=== PATIENT | female | born 1945 | race Caucasian/White ===

== ENCOUNTER → 2016-05-13 | Outpatient (CLI) | payer BC ==
[~2016-05-13] MED LIST: ACET325T96 PO; ASPI325T39 PO; CLC100X PO; CRD200 PO; SDMC1 PO; TAMS0.4C38 PO; [UNRECOGNIZED DRUG - CODE] NAE
== END | disposition home or self-care (01) ==
LOC: C.PAPS 17:49
PROVIDERS: ATTEND Obstetrics & Gynecology
DX: Z12.4 Encounter for screening for malignant neoplasm of cervix (principal)

== ENCOUNTER → 2016-11-22 | Outpatient (CLI) | payer BC ==
[2016-11-22 14:48] LABS: ALB/GLOB RATIO 1.1 (0.9-2); ALT/SGPT 14 U/L (12-78); AST/SGOT 14 U/L (15-37); BLOOD UREA NITROGEN 18 mg/dl (7-18); CALCIUM 9.9 mg/dl (8.5-10.1); CARBON DIOXIDE 32 mmol/L (21-32); CHLORIDE 102 mmol/L (98-107); CHOLESTEROL 208 mg/dl (0-200); GLUCOSE 90 mg/dl (70-99); SODIUM 138 mmol/L (136-145); TRIGLYCERIDES 60 mg/dl (0-150); VERY LOW DENSITY LIPOPROT CALC 12 mg/dl
[2016-11-22 14:52] LABS: ALKALINE PHOSPHATASE 82 U/L (45-117); CHOLESTEROL/HDL RATIO 2.2; HDL CHOLESTEROL 95 mg/dl; LDL CHOLESTEROL CALCULATED 101 mg/dl
== END | disposition home or self-care (01) ==
LOC: C.LAB1850 10:32
PROVIDERS: ATTEND Internal Medicine Cardiovascular Disease
DX: I10 Essential (primary) hypertension (principal); I25.10 Atherosclerotic heart disease of native coronary artery without angina pectoris

== ENCOUNTER → 2016-12-23 | Outpatient (CLI) | payer BC ==
--- NOTE | 2016-12-23 12:34 | MAMMOGRAPHY REPORT ---
BILATERAL DIGITAL SCREENING MAMMOGRAM WITH CAD: 12/23/2016 CLINICAL HISTORY: Routine screening. TECHNIQUE: Current study was also evaluated with a Computer Aided Detection (CAD) system. Bilateral CC and MLO views were obtained. COMPARISON: Comparison is made to exams dated: 12/22/2015 mammogram, 12/16/2014 mammogram, 12/11/2013 gigi mogram, 12/10/2012 mammogram, 12/08/2011 mammogram, and 12/06/2010 mammogram - [facility]. BREAST COMPOSITION: There are scattered areas of fibroglandular density in both breasts. FINDINGS: No suspicious masses, calcifications, or areas of architectural distortion are noted in ei ther breast. There has been no significant interval change compared to prior exams. IMPRESSION: ACR BI-RADS CATEGORY 1: NEGATIVE There is no mammographic evidence of malignancy. A 1 year screening mammogram is recommended. The pa tient will receive written notification of the results. Approximately 10% of breast cancers are not detected with mammography. A negative mammographic report should not delay biopsy if a clinically suggestive mass is present. Florecita Alfaro M.D. ah/:12/23/2016 12:10:43 Field Marketing Associate: Araseli Dey RT(R)(M), [facility] letter sent: Normal 1/2 BI-RADS Code: ACR BI-RADS Category 1: Negative
== END | disposition home or self-care (01) ==
LOC: C.MAMM 11:35
PROVIDERS: ATTEND Family Medicine
DX: Z12.31 Encounter for screening mammogram for malignant neoplasm of breast (principal)

== ENCOUNTER 2018-05-01 21:17 | Inpatient (IN) ==
[2018-05-01] MEDS ORDERED: ONDANSETRON INJ 2 MG/ML 2 ML VIAL IV STA (21:40)
[2018-05-01] MEDS ORDERED: SODIUM CHLORIDE 0.9% 1000ML 1,000 ML IV SCH (21:45)
--- NOTE | 2018-05-01 22:05 | XRay Report ---
XR chest 1V portable CLINICAL HISTORY: weakness COMPARISON STUDY: 09/10/2015 FINDINGS: The heart is mildly enlarged. There are postsurgical changes of a midline sternotomy and ao rtic valve replacement. There is no failure. There is no focal pulmonary consolidation. There are no large pleural effusions.[ IMPRESSION: No active disease in the chest. Electronically signed by: Isai Connolly M.D. 05/01/2018 10:03 PM
[2018-05-01 22:11] LABS: Hematocrit (blood only) 39.9 % (37-47); Hemoglobin 13.1 g/dL (12.0-16.0); Mean Corpuscular Hgb Conc 32.8 g/dL (32-36); Mean Corpuscular Volume 90.9 fL (80-100); Platelet Count 337 K/uL (130-400); RDW Standard Deviation 46.4 fL (36.4-46.3); Red Blood Count 4.39 M/uL (4.2-5.4); White Blood Count 10.22 K/uL (4.8-10.8)
[2018-05-01 22:30] LABS: BUN Creatinine Ratio 21.7 (10-20); Calcium 8.2 mg/dl (8.5-10.1); Creatinine Clr Calc Pharmacy 37.1 ml/min; Est GFR (African American) 47.5; Magnesium 2.1 mg/dl (1.8-2.4); Potassium 4.2 mmol/L (3.5-5.1)
[2018-05-01 22:33] LABS: Basophils # (auto) 0.02 K/uL (0-0.2); Basophils % (auto) 0.2 %; Eosinophils # (auto) 0.04 K/uL (0-0.5); Eosinophils % (auto) 0.4 %; Immature Granulocytes # (auto) 0.05 K/uL (0.00-0.02); Immature Granulocytes % (auto) 0.5 %; Lymphocytes # (auto) 1.01 K/uL (1.2-3.4); Lymphocytes % (auto) 9.9 %; Monocytes # (auto) 0.73 K/uL (0.11-0.59); Monocytes % (auto) 7.1 %; Neutrophils # (auto) 8.37 K/uL (1.4-6.5); Neutrophils % (auto) 81.9 %
--- NOTE | 2018-05-01 22:37 | Emergency Department Note ---
Entered by Abhishek Vitale acting as a scribe for History of Present Illness General Chief complaint: Syncope Stated complaint: SYNCOPE, Time Seen by Provider: 05/01/18 21:31 Source: patient History of Present Illness Provider complaint: Syncope Onset (ago): minute(s) (Just prior to arrival) Location: head Pain Consistency: + other (Episode) Maximum Pain Intensity: 5 Quality: + other (Cramping) Relieved By: + none Associated symptoms: + diaphoresis, + nausea/vomiting (No vomiting), + shortness of breath and + other (Dizzy); no chest pain, no fever/chills and no headaches The patient is a 73 year old female who presents to the Emergency Room after having a syncopal episode just prior to arrival. She states that around 193 she became diaphoretic, her vision went fuzzy and she became incontinent with both urine and stool. While getting help from her to go to the bathroom she lost consciousness and hit her head on the ground. She had nausea and fuzzy vision yesterday after taking two hydrocodone, which has never happened before, so she did not take any today. She has the hydrocodone for a cramping lower back pain that radiates to her posterior thighs. The back pain is from a back surgery she had done in 2014. She was here April 19 when she had a CT scan of her L spine done that showed central canal stenosis, no fracture, and hardware was intact. She also saw Dr. Manrique on April 24 where she had an Xray done and was prescribed Toradol for 5 days, which did not help her symptoms. Prior to this she was prescribed Prednisone and a muscle relaxer, which did not help either. With her negative effect to hydrocodone, she now just takes Ibuprofen. She denies any vomiting, black stool, headache, diarrhea, fever or chest pain but she does have some shortness of breath that she attributes to her anxiety. She does have a history of an aortic valve replacement. Home Medications Home Medications Medication Instructions Recorded Confirmed Type aspirin, buffered 325 mg PO DAILY 05/01/18 05/01/18 History clarithromycin 1,000 mg PO UD 05/01/18 05/01/18 History hydrocodone-acetaminophen 1 tab PO Q6H PRN 05/01/18 05/01/18 History ibuprofen 200 - 400 mg PO TID PRN 05/01/18 05/01/18 History polyethylene glycol 3350 [Miralax] 17 g PO HS 05/01/18 05/01/18 History triamterene-hydrochlorothiazid 1 tab PO DAILY 05/01/18 05/01/18 History Allergies Allergy/AdvReac Type Severity Reaction Status Date / Time amoxicillin Allergy Unknown HIVES Verified 05/01/18 22:32 Penicillins Allergy Unknown AMOXICILLIN Verified 05/01/18 22:32 -HIVES Sulfa (Sulfonamide Allergy Unknown HIVES Verified 05/01/18 22:32 Antibiotics) epinephrine AdvReac Unknown tachycardia Verified 05/01/18 22:32 Past Med/Surg History Medical History Lumbar stenosis with neurogenic claudication (Acute) Surgical History History of fusion of lumbar spine (Acute) Aortic valve replaced H/O thoracic aortic aneurysm repair Family History Other Family history non-contributory Social History marital status: Current Living Situation: Spouse current occupational status: retired Feels Safe at Home: Yes Smoking Status: Former smoker Hx Alcohol Use: No Review of Systems See HPI for pertinent positives & negatives. and A total of 10 systems reviewed and were otherwise negative Physical Exam Vital Signs Vital Signs - 24 hr 05/01/18 21:20 05/01/18 21:49 05/01/18 21:53 Temperature 36.4 C L Temperature Source Oral Sepsis Recent Fever Within 48 Hours No Sepsis New/Unexplained Change in Mental Status No Sepsis Action Taken by Nursing No Action Required Pulse Rate 108 H Pulse Rate [Apical] 106 H Respiratory Rate 20 18 Blood Pressure 89/60 L Blood Pressure [Right Arm] 119/73 Blood Pressure Mean 69 Blood Pressure Mean [Right Arm] 88 Pulse Oximetry 97 98 98 Oxygen Delivery Method Room Air Room Air 05/01/18 22:34 05/01/18 22:36 05/01/18 23:00 Temperature Temperature Source Sepsis Recent Fever Within 48 Hours Sepsis New/Unexplained Change in Mental Status Sepsis Action Taken by Nursing Pulse Rate 109 H 109 H Pulse Rate [Apical] 109 H Respiratory Rate 22 19 11 L Blood Pressure 110/73 107/74 Blood Pressure [Right Arm] 110/73 Blood Pressure Mean 85 85 Blood Pressure Mean [Right Arm] 85 Pulse Oximetry 95 100 Oxygen Delivery Method Room Air 05/01/18 23:24 05/01/18 23:30 05/01/18 23:47 Temperature Temperature Source Sepsis Recent Fever Within 48 Hours Sepsis New/Unexplained Change in Mental Status Sepsis Action Taken by Nursing Pulse Rate 110 H 98 H 89 Pulse Rate [Apical] Respiratory Rate 19 26 H 21 Blood Pressure 102/69 89/70 L 84/59 L Blood Pressure [Right Arm] Blood Pressure Mean 80 76 67 Blood Pressure Mean [Right Arm] Pulse Oximetry 99 98 99 Oxygen Delivery Method 05/02/18 00:01 05/02/18 00:16 05/02/18 00:34 Temperature Temperature Source Sepsis Recent Fever Within 48 Hours Sepsis New/Unexplained Change in Mental Status Sepsis Action Taken by Nursing Pulse Rate 95 H 98 H 99 H Pulse Rate [Apical] Respiratory Rate 21 20 22 Blood Pressure 104/82 111/82 116/64 Blood Pressure [Right Arm] Blood Pressure Mean 89 91 81 Blood Pressure Mean [Right Arm] Pulse Oximetry 97 98 97 Oxygen Delivery Method GENERAL: Patient is in no acute distress. HEENT: No acute trauma, small hematoma to the right lateral scalp with no laceration repair required, mucous membranes moist, no nasal congestion, no scleral icterus. NECK: No stridor, no adenopathy, no meningismus, trachea is midline. LUNGS: Clear to auscultation bilaterally, no wheeze, no rhonchi, breath sounds equal. HEART: Tachycardic rate with a regular rhythm. 2/6 systolic murmur ABDOMEN: Soft, nontender, bowel sounds positive, no hernias, no peritonitis. EXTREMITIES: No cyanosis, full range of motion of all the joints without pain or difficulty, no signs for acute trauma. Mild bilateral pedal edema. NEUROLOGIC: Oriented x 3, no acute motor or sensory deficits, no focal weakness. GCS of 15. SKIN: Pale, no rash, no jaundice, no diaphoresis. Course 2131: Past medical records reviewed. The patient was evaluated in room C09, and a complete history and physical examination were performed. 2257: I reevaluated the patient and updated her on her lab results. 2303: I spoke with Dr. Hewitt - Cardiology about the patients case. He said to try a little beta karel and that heparin would be reasonable. 2313: I spoke to Dr. Gustavo Bell [facility] Hospitalist about the patient's case and she will accept her for further evaluation. 2355: I spoke to Dr. Jain -Cardiology and he said he would not do any intervention as of now, but if she gets worse or has pain to call him back. He also said that she should go to the unit instead of PCU. 0002: I spoke to Manav Londono - Sql Data [employer]st [facility] about the patient's case and he is going to accept her for further evaluation. 0005: I spoke to Dr. Gustavo Bell [facility] Hospitalist and updated her on the conversation I had with Dr. Jain. 0012: I updated the patient and her family on the plan of treatment. Consultations Consultation #1: I spoke with Dr. Hewitt - Cardiology about the patients case. He said to try a little beta karel and that heparin would be reasonable. Time: 23:04 Consultation #2: I spoke to Dr. Gustavo Bell [facility] Hospitalist about the patient's case and she will accept her for further evaluation. Time: 23:13 Consultation #3: I spoke to Dr. Jain -[facility] and he said he would not do any intervention as of now, but if she gets worse or has pain to call him back. Time: 23:55 Additional Consultation(s): 0002: I spoke to Manav Londono - Sql Data Analyst [facility] about the patient's case and he is going to accept her for further evaluation. 0005: I spoke to Dr. Gustavo Bell [facility] Hospitalist and updated her on the conversation I had with Dr. Jain. Administered Medications Discontinued Medications Acetaminophen (Ofirmev) 1,000 mg IV NOW STA Stop: 05/02/18 00:14 Last Admin: 05/02/18 00:34 Dose: 1,000 mg Heparin Sodium/Dextrose () 1 ea N/A ONE ONE; Protocol Stop: 05/01/18 23:11 Last Admin: 05/01/18 23:34 Dose: Not Given Heparin Sodium/Dextrose (Heparin Sodium/Dextrose) Confirm Administered Dose 25, 000 units IV .STK-MED ONE Stop: 05/01/18 23:12 Last Admin: 05/01/18 23:33 Dose: 1,100 units Sodium Chloride (Nss 1000ml) 1,000 mls @ 999 mls/hr IV .Q1H1M LIONEL Stop: 05/01/18 22:45 Last Infusion: 05/01/18 22:56 Dose: 0 mls/hr Admin: 05/01/18 21:52 Dose: 999 mls/hr Sodium Chloride (Nss 1000ml) 250 mls @ 999 mls/hr IV .Q16M ONE Stop: 05/01/18 23:52 Last Infusion: 05/02/18 00:08 Dose: 0 mls/hr Admin: 05/01/18 23:50 Dose: 999 mls/hr Metoprolol Tartrate (Lopressor) 2.5 mg IV NOW STA Stop: 05/01/18 23:09 Last Admin: 05/01/18 23:24 Dose: 1.5 mg Ondansetron HCl (Zofran) 4 mg IV NOW STA Stop: 05/01/18 21:41 Last Admin: 05/01/18 21:52 Dose: 4 mg Medical Decision Making Differential Diagnosis Differential Diagnoses include: Dehydration, electrolyte imbalance, anemia, GI bleeding, medication reaction, dysrhythmia, myocardial infarction, UTI, and intracranial bleeding or mass, amongst others. Medical Records Attestation: I reviewed the patient's medical records. Home Medications Current Medication List: was personally reviewed by me Laboratory Data Attestation: I reviewed the patient's lab results. Result diagrams: 05/01/18 22:01 05/01/18 22:01 Lab Results 05/01/18 05/01/18 05/01/18 Range/Units 22:01 22:01 22:01 WBC 10.22 (4.8-10.8) K/uL RBC 4.39 (4.2-5.4) M/uL Hgb 13.1 (12.0-16.0) g/dL Hct 39.9 (37-47) % MCV 90.9 (80-100) fL MCH 29.8 (25-34) pg MCHC 32.8 (32-36) g/dL RDW Std Deviation 46.4 H (36.4-46.3) fL RDW Coeff of Zoran 14.0 (11.5-14.5) % Plt Count 337 (130-400) K/uL MPV 9.0 (7.4-10.4) fL Immature Gran % (Auto) 0.5 % Neut % (Auto) 81.9 % Lymph % (Auto) 9.9 % [place] % (Auto) 7.1 % Eos % (Auto) 0.4 % Baso % (Auto) 0.2 % Immature Gran # (Auto) 0.05 H (0.00-0.02) K/uL Neut # (Auto) 8.37 H (1.4-6.5) K/uL Lymph # (Auto) 1.01 L (1.2-3.4) K/uL [place] # (Auto) 0.73 H (0.11-0.59) K/uL Eos # (Auto) 0.04 (0-0.5) K/uL Baso # (Auto) 0.02 (0-0.2) K/uL PT (9.0-12.0) Seconds INR (0.9-1.1) APTT (21.0-31.0) Seconds PTT Ratio Sodium 133 L (136-145) mmol/L Potassium 4.2 (3.5-5.1) mmol/L Chloride 101 (98-107) mmol/L Carbon Dioxide 23 (21-32) mmol/L Anion Gap 9.0 (3-11) BUN 28 H (7-18) mg/dl Creatinine 1.30 H (0.6-1.2) mg/dl Est Cr Clr Drug Dosing 37.1 ml/min Est GFR ( Amer) 47.5 Est GFR (Non-Af Amer) 41.0 BUN/Creatinine Ratio 21.7 H (10-20) Glucose 143 H (70-99) mg/dl Calcium 8.2 L (8.5-10.1) mg/dl Magnesium 2.1 (1.8-2.4) mg/dl Total Bilirubin 0.3 (0.2-1) mg/dl AST 22 (15-37) U/L ALT 28 (12-78) U/L Alkaline Phosphatase 224 H (45-117) U/L Troponin I 2.780 H* (0-0.045) ng/ml Total Protein 6.8 (6.4-8.2) gm/dl Albumin 3.0 L (3.4-5.0) gm/dl Globulin 3.8 (2.5-4.0) gm/dl Albumin/Globulin Ratio 0.8 L (0.9-2) TSH 0.997 (0.300-4.500) uIu/ml Blood Type A Positive Antibody Screen NEGATIVE 05/01/18 Range/Units 22:01 WBC (4.8-10.8) K/uL RBC (4.2-5.4) M/uL Hgb (12.0-16.0) g/dL Hct (37-47) % MCV (80-100) fL MCH (25-34) pg MCHC (32-36) g/dL RDW Std Deviation (36.4-46.3) fL RDW Coeff of Zoran (11.5-14.5) % Plt Count (130-400) K/uL MPV (7.4-10.4) fL Immature Gran % (Auto) % Neut % (Auto) % Lymph % (Auto) % [place] % (Auto) % Eos % (Auto) % Baso % (Auto) % Immature Gran # (Auto) (0.00-0.02) K/uL Neut # (Auto) (1.4-6.5) K/uL Lymph # (Auto) (1.2-3.4) K/uL [place] # (Auto) (0.11-0.59) K/uL Eos # (Auto) (0-0.5) K/uL Baso # (Auto) (0-0.2) K/uL PT 9.7 (9.0-12.0) Seconds INR 1.0 (0.9-1.1) APTT 25.6 (21.0-31.0) Seconds PTT Ratio 1.0 Sodium (136-145) mmol/L Potassium (3.5-5.1) mmol/L Chloride (98-107) mmol/L Carbon Dioxide (21-32) mmol/L Anion Gap (3-11) BUN (7-18) mg/dl Creatinine (0.6-1.2) mg/dl Est Cr Clr Drug Dosing ml/min Est GFR ( Amer) Est GFR (Non-Af Amer) BUN/Creatinine Ratio (10-20) Glucose (70-99) mg/dl Calcium (8.5-10.1) mg/dl Magnesium (1.8-2.4) mg/dl Total Bilirubin (0.2-1) mg/dl AST (15-37) U/L ALT (12-78) U/L Alkaline Phosphatase (45-117) U/L Troponin I (0-0.045) ng/ml Total Protein (6.4-8.2) gm/dl Albumin (3.4-5.0) gm/dl Globulin (2.5-4.0) gm/dl Albumin/Globulin Ratio (0.9-2) TSH (0.300-4.500) uIu/ml Blood Type Antibody Screen Imaging Data Radiologist's Impression: Radiology results as stated below per my review and the radiologist's interpretation: XR chest 1V portable CLINICAL HISTORY: weakness COMPARISON STUDY: 09/10/2015 FINDINGS: The heart is mildly enlarged. There are postsurgical changes of a midline sternotomy and aortic valve replacement. There is no failure. There is no focal pulmonary consolidation. There are no large pleural effusions.[ IMPRESSION: No active disease in the chest. Electronically signed by: Isai Connolly M.D. 05/01/2018 10:[address] head/brain wo con CLINICAL HISTORY: Head pain status post head trauma COMPARISON STUDY: No previous studies for comparison. TECHNIQUE: Axial CT of the brain is performed from the vertex to the skull base. IV contrast was not administered for this examination. A dose lowering technique was utilized adhering to the principles of ALARA. CT DOSE: 537.48 mGy.cm FINDINGS: No intra or extra-axial mass lesions are visualized. There is no CT evidence of acute cortical infarction. There is no evidence of midline shift. There is no acute hemorrhage. No calvarial fractures are visualized. There is no evidence of pathologic ventricular dilatation. There is no evidence of acute sinusitis IMPRESSION: No acute intracranial findings Electronically signed by: Isai Connolly M.D. 05/01/2018 10:36 PM ECG Data Attestation: I personally reviewed and interpreted this ECG as follows: Indication: syncope Rate (beats per minute): 104 Rhythm: sinus tachycardia Findings: + other (Potential old septal infarct); no PVC and no ST elevation Comparison ECG Date: from (August 2015) Change: the following changes noted (Today's EKG looked better) Additional Comments: REPEAT EK:45 Normal sinus rhythm rate of 90. LBBB, potential old anterior septal infarct, no PVC Blood Pressure Blood Pressure Findings: Normal blood pressure Blood Pressure Disposition: further management by hospitalist DIANA Narrative There is no leukocytosis or concerning anemia. No significant electrolyte abnormality or kidney failure. No coagulopathy. Alk phos was slightly elevated , the other liver enzymes were unremarkable. The patient appeared to be in a euthyroid state. Chest film did not show pneumonia, free air or pneumothorax. There was no CHF. Brain CT showed no acute bleed or mass-effect. EKG showed a sinus tachycardia with some chronic findings, there was no evidence for significant change compared to previous EKGs. Cardiac troponin was elevated at 2.7. Repeat EKG showed similar findings. The patient received 2 L of IV saline. She received an additional 250 cc of IV saline. She received IV Zofran for nausea. She was given IV Tylenol for pain. She received a very small dose of IV Lopressor with a drop in her heart rate but also a drop in her systolic blood pressure. She was eventually placed on IV heparin. Patient presents with a near syncopal and brief syncopal spell. She had a sweating episode earlier. She was hypotensive and tachycardic upon arrival. The patient was aggressively managed. She did well with the IV fluids but, then did feel dizzy and became somewhat hypotensive after the very small dose of IV Lopressor. I talked with her about her findings. I spoke with cardiology on-call, the license inspector on-call for heart alert, the on-call hospitalist. I spoke with the ICU. The patient is being admitted to the hospital, no acute cardiac intervention warranted this evening as per my consultants. Close monitoring, hydration, symptom control have been advised. It does appear that the patient has suffered an SD which may have started yesterday when she first began feeling weak, dizzy and lightheaded. Of note, nursing staff did perform a rectal exam, stool was heme-negative. Impression & Plan Acute myocardial infarction, Hypotension, Syncope Critical Care Time I have personally spent greater than 32 minutes of critical care time in the direct management of this patient. This includes bedside care, interpretation of diagnostic studies, and testing, discussion with consultants, patient, and family members, and other required patient management activities. This 32 minutes is in excess of all separately billable procedures. Critical Care Time: Yes Total Critical Care Time: 32 Discharge Plan Visit Data Chief Complaint: Syncope Stated Complaint: SYNCOPE, ED Provider: Edwin Triplett Discharge Problem: Acute myocardial infarction, Hypotension, Syncope Patient Disposition: Being Evaluated by Hospitalist Discharge Instructions Interventions: ED Discharge Assessment Last Done: 05/02/18 00:47 The scribe's documentation has been prepared under my direction and personally reviewed by me in its entirety. I confirm that the note above accurately reflects all work, treatment, procedures, and medical decision making performed by me.
[2018-05-01 22:50] LABS: Albumin Globulin Ratio 0.8 (0.9-2); Bilirubin,Total 0.3 mg/dl (0.2-1); Globulin 3.8 gm/dl (2.5-4.0); Total Protein 6.8 gm/dl (6.4-8.2); Troponin I 2.78 ng/ml (0-0.045)
[2018-05-01] MEDS ORDERED: METOPROLOL TARTRATE 1 MG/ML VIAL IV STA (23:08)
[2018-05-01] MEDS ORDERED: Heparin IV Standard *NO* Bolus ONE (23:10)
[2018-05-01] MEDS ORDERED: HEPARIN 25000 UNIT/500 ML D5W IV ONE (23:11)
[2018-05-01 23:31] LABS: Partial Thromboplastin Time 25.6 Seconds (21.0-31.0); Prothrombin Time 9.7 Seconds (9.0-12.0)
[2018-05-01] MEDS ORDERED: SODIUM CHLORIDE 0.9% 1000ML 250 ML IV ONE (23:37)
[2018-05-02] MEDS ORDERED: ACETAMINOPHEN 1000 MG/100 ML IV IV STA (00:13)
[2018-05-02] MEDS ORDERED: ICU PROTOCOL FOR HYPERGLYCEMIA PRN (01:07)
--- NOTE | 2018-05-02 01:19 | History & Physical Report ---
Date of Service May 02, 2018 Assessment & Plan (1) Hypotension: Dalia Li is a 73 y.o female with history of bicuspid aortic valve s/p replacement and repair, history of lumbar spinal stenosis s/p fusion, thoracic aortic aneurysm repair, and constipation admitted for further evaluation and management of acute syncopal episode. 1. Syncopal Episode - Occurred during evening of 05/01/18 -Unclear etiology but may be secondary to acute NSTEMI vs worsened thoracic aortic aneurysm vs bicuspid aortic valve dysfunction vs [place] Cardiomyopathy. Not likely to be related to Hydrocodone as she only had 2 tablets but will keep this in the differential -EKG findings: sinus tachycardia, left bundle branch block -Troponin elevated at: 2.780 will continue to trend -Will treat as NSTEMI while undergoing further evaluation -Received Metoprolol x 1 in ED due to tachycardia and pt had an episode of hypotension she is currently stable denies chest pain and is breathing on room air. -Heparin gtt started in the ED and ASA 324mg given -Cardiology consulted and will appreciate recommendations -ECHO ordered -Due to concern for cardiac dysfunction and tenuous blood pressure Will plan to admit to ICU for further management and evaluation. 2. Acute Myocardial Infarction -Asymptomatic but with elevated troponin and syncopal episode -Treating with Heparin gtt and will trend troponin level -Aspirin 81mg daily -ECHO pending -Lipid panel pending, A1c pending -Discussed with cardiology and cards will hold on laboratory mechanical technician as she is asymptomatic -Will appreciate recommendations from cardiology 3. Thoracic Aortic Aneurysm -s/p repair and is followed by outside production associate -BP difference measured on right arm and left arm (116/64 on rt and 93/52 on left) pt was lying on right side during measurement -Plan to evaluate further with CT angio chest dissection 4. Bicuspid Aortic Valve -s/p replacement and recent repair in 2016 -Takes Clarithromycin pre-operatively for dental procedures -dysfunction of valve may be cause of syncopal episode -Will evaluate further with TTE 5. Lumbar Spinal Stenosis -Chronic in nature with acute pain x 3 weeks -Uses a walker at home -Follows with ortho in outpt setting -Acetaminophen as needed for back pain, Lidoderm Patch daily -Discussed extensive outpt PT/OT with patient due to acute decline 6. Constipation -Continue Miralax per home regimen FEN/GI Fluids: None Electrolytes: Monitor and replace as needed Nutrition: Heart healthy diet Activity: Bed rest GI PPX: Protonix DVT PPX: on Heparin gtt Code: Full Code Dispo: Inpatient admission to ICU. Dispo to home when well with PT/OT. Present on Admission?: Yes (2) Syncope: (3) Acute lumbar back pain: (4) Acute myocardial infarction: History of Present Illness Primary Care Provider: Ayesha Duenas MD Dalia Li is a 73 y.o female with history of bicuspid aortic valve s/p replacement and repair, history of lumbar spinal stenosis s/p fusion, thoracic aortic aneurysm repair, and constipation presenting to the ED after syncopal episode. History per patient. States that during the evening of she was walking in her house and using her walker when she started to feel lightheaded. She sat down on the couch and shortly after she became profusely diaphoretic reporting that she broke out into a sweat, became nauseated and had difficulty catching her breath. Mrs. Li called her to help her, she got up, walked to the bathroom and passed out while sitting on the commode. She fell off the commode and hit the right side of her head on the ground followed by loss of consciousness and small amount of bowel/bladder incontinence. She was then brought to the ED by EMS. Has a prior history of 2 syncopal episodes years ago and recalls that one episode occurred in the bathroom. Dalia reports that over the past few weeks her mobility has decreased as she has experienced worsening pain in relation to spinal stenosis. Pain is present in lower back, bilateral buttocks and thighs. Associated radiation of numbness/ tingling in legs and feet. She has been seen by ortho and it was thought that she had an inflammatory process around the hardware in her back. Was given Toradol x 5 days and Hydrocodone for pain relief. She took one tablet of hydrocodone during the morning of 05/01 and one tablet during the evening of . Lightheaded/dizzy sensation started on 05/01 and thought that it was due to hydrocodone so she stopped taking the medication. Is eating and drinking at baseline. Denies chest pain/vomiting/diarrhea. PMH/Surgical History 1. Lumbar spinal stenosis 2. Bicuspid aortic valve replacement 3. Thoracic aortic aneurysm repair 4. Constipation Medications: Clarithromycin - prophylaxis for dental procedures ASA - Thoracic aortic aneurysm Triamterene-HCTZ: HTN Miralax: Constipation Social: Lives at home with . Home is bi-level and has stairs. Prior remote history of tobacco use. Social alcohol intake: wine on occasion. Denies drug use. Allergies Allergy/AdvReac Type Severity Reaction Status Date / Time amoxicillin Allergy Unknown HIVES Verified 05/01/18 22:32 Penicillins Allergy Unknown AMOXICILLIN Verified 05/01/18 22:32 -HIVES Sulfa (Sulfonamide Allergy Unknown HIVES Verified 05/01/18 22:32 Antibiotics) epinephrine AdvReac Unknown tachycardia Verified 05/01/18 22:32 Home Medications Home Medications Medication Instructions Recorded Confirmed Type aspirin, buffered 325 mg PO DAILY 05/01/18 05/01/18 History clarithromycin 1,000 mg PO UD 05/01/18 05/01/18 History hydrocodone-acetaminophen 1 tab PO Q6H PRN 05/01/18 05/01/18 History ibuprofen 200 - 400 mg PO TID PRN 05/01/18 05/01/18 History polyethylene glycol 3350 [Miralax] 17 g PO HS 05/01/18 05/01/18 History triamterene-hydrochlorothiazid 1 tab PO DAILY 05/01/18 05/01/18 History Past Med/Surg History Medical History Lumbar stenosis with neurogenic claudication (Acute) Surgical History History of fusion of lumbar spine (Acute) Aortic valve replaced H/O thoracic aortic aneurysm repair Family History Other Family history non-contributory Social History marital status: Current Living Situation: Spouse current occupational status: retired Other Information That Helps Us Care for You: Yes Feels Safe at Home: Yes Safety Concerns: Feels Safe At This Time Smoking Status: Former smoker Hx Alcohol Use: No Hx Substance Use: No Beliefs That Will Affect Care: None Review of Systems Constitutional: no fever and no body aches Eyes: no discharge Ear, Nose, Mouth, Throat: no nasal congestion and no sore throat Respiratory: no cough and no dyspnea Cardiovascular: + syncope; no chest pain, no chest pain at rest, no radiating jaw, neck or arm pain and no edema Gastrointestinal: + nausea; no abdominal pain and no vomiting Genitourinary (Female): no dysuria and no hematuria Musculoskeletal: + back pain; no neck pain and no stiffness Integumentary: no rash and no lesions Neurologic: + tingling, + numbness and + dizziness Physical Exam 2 Vital Signs (Past 24 Hours): Last Vital Signs Temp 36.4 C L 05/01/18 21:20 Pulse 95 H 05/02/18 00:01 Resp 21 05/02/18 00:01 BP 104/82 05/02/18 00:01 Pulse Ox 97 05/02/18 00:01 Constitutional: well developed, well nourished and cooperative; no acute distress Eyes: PERRL and EOM intact bilaterally ENMT: external ear and nose normal, oropharynx normal Neck: neck supple, normal ROM Respiratory: normal respiratory effort, lungs clear to auscultation no cough Auscultation: no rales, no rhonchi and no wheezes Cardiovascular: Rate/Rhythm: regular rhythm and + tachycardic Heart Sounds : normal S1 and normal S2 Vessels: normal peripheral pulses; no JVD Extremities: no edema Gastrointestinal (Abdomen): normal bowel sounds, soft, nontender, no hepatosplenomegaly Musculoskeletal: no cyanosis or clubbing, extremities motor strength 5/5 Gait: + antalgic gait Skin: no rashes, warm and dry Neurologic: PERRL, EOMI, accommodation nl, no face palsy, no dysarthria CN' s II-XI intact bilaterally and awake Results & Data Laboratory Results Na 133 BUN/28 Cr 1.30 Troponin: 2.780 Diagnostic Findings CXR: mild enlarged heart. no consolidation/effusion/infiltrate Head CT: No mass/midline shift/no acute hemorrhage Medications Administered Zofran, Metoprolol, Heparin gtt, Ofirmev, IvF Code Status & VTE Plan Code Status Full Code VTE Prophylaxis Plan VTE Prophylaxis will be ordered: No Reason for no VTE drug order: Treatment not indicated (On Heparin gtt) Supervising Physician Co-Signing Physician Notes Patient seen and examined, chart reviewed, case discussed with Dr. Robertson and I agree with her assessment and plan as documented above. Briefly, patient is a 73yo female with history of bicuspid aortic valve s/p bioprosthetic AVR with repair in 2016, thoracic aortic aneurysm s/p repair with 34mm Dacron graft , HTN presenting with episode of diaphoresis and syncope. Patient also with severe back pain On exam she is afebrile, tachycardic and hypotensive Skin - pale HEENT - MMM, neck supple, no JVD Heart - +S1/S2, regular, no m/r/g Lungs - CTA, no rales/rhonchi/wheezes Abd - +BS, soft, NT/ND Ext - no edema Labs and images reviewed. Elevated troponin. EKG with no evidence of ischemia Assessment/Plan: -Admit to MICU due to tenuous hemodynamics -CTA chest STAT to assess for aneurysm rupture/dissection -Echocardiogram -Trend cardiac enzymes -Remainder of plan as above. _ (1) Acute myocardial infarction Involved coronary artery: Myocardial infarction type: non-ST elevation myocardial infarction Qualified Code(s): I21.4 - Non-ST elevation (NSTEMI) myocardial infarction (2) Syncope Encounter type: Syncope type: unspecified Qualified Code(s): R55 - Syncope and collapse (3) Acute lumbar back pain Back pain laterality: Sciatica laterality: Sciatica presence: (4) Hypotension Hypotension type: unspecified hypotension type Trimester: Qualified Code(s) : I95.9 - Hypotension, unspecified
[2018-05-02 01:58] LABS: Appearance Urine Cloudy (Clear); Bacteria Urine Automated 2+ (Negative); Bilirubin Urine Negative (Negative); Color Urine Yellow; Epithelial Cell Urine Auto >30 /lpf (0-5); Glucose Urine UA Negative (Negative); Ketones Urine Negative (Negative); Leukocyte Esterase Urine 1+ (Negative); Nitrite Urine Negative (Negative); Protein Urine Negative (Negative); Specific Gravity Urine 1.012 (1.000-1.030); Urobilinogen Urine Negative (Negative)
[2018-05-02 02:08] LABS: Phosphorus 3.3 mg/dl (2.5-4.9); Troponin I 2.73 ng/ml (0-0.045)
[2018-05-02] MEDS ORDERED: OPTIRAY 320 125ml IV PRN (02:21)
--- NOTE | 2018-05-02 04:40 | Critical Care Consultation ---
Date of Consultation May 02, 2018 Assessment & Plan (1) Admitted to intensive care unit: Reason Critically Ill: 73-year-old female with acute NSTEMI and syncopal episode found to have dissecting abdominal aortic aneurysm. NEURO - * CAM ICU: NEGATIVE * Pain: Acetaminophen/Lidoderm patch. * Consider narcotics in the setting of severe pain to avoid hypertensive response. CARDIAC/VASCULAR - * AAA Dissection: * Acute w/ s/s concerning w/ back pain, elevated trop, and syncope. * Hospitalist spoke with vascular - will see/evaluate in the morning. * Keep BPs lower. * h/o Aortic repair x2 * Continue ASA per outpatient Rx. * Ascending thoracic aortic aneurysm previously repaired. * Syncope: * Likely as per above w/ associated Hypotension. * Echo ordered for this AM. * EKG: New LBBB. * Monitor on telemetry. RESPIRATORY - * No h/o pulmonary disease. * Monitor pulseoximetry throughout. GI/NUTRITION - * Make NPO until vascular evaluates. RENAL/LYTES - * CHERRI * Received 2L IVF in the ED. * IVF: Will add IVF now that patient is NPO. - * No concerns at this time. Will make patient bedrest, however 2/2 above. ENDO - * No h/o DM or thyroid Dz * BSGs per unit protocol. ISS --> gtt per unit policy. HEME - * Stable H&H * Will trend in the setting of above. * Type&Screen available. ID - * No c/o infectious sources at this time. LINES/IV ACCESS - * PIVs x2 DVT PROPHYLAXIS - * Initially on heparin gtt in the ED. Will hold in the setting of above. * SCDs I have personally spent 35 minutes of critical care time in the direct management of this patient. This is a life/limb threatening event. This includes time spent evaluating patient, direct bedside care, chart review, placing orders, interpretation of diagnostic studies, discussion with consultants, patient, and family members, as well as other required patient management activities. This time is exclusive of all separately billable procedures, and teaching time and separate from and in addition to any other critical care service time. Thank you for allowing us to participate in the care of this patient. Please refer to my attending physician's documentation for any further recommendations. I have personally evaluated and examined this patient. I agree with assessment and plan of David Londono PA-C. Patient has been consented for central line and arterial line, starting nicardipine to lower blood pressure mildly as well as decrease heart rate. She has been consented for blood and was also sent type and screen. I have personally spent 50 minutes of critical care time in the direct management of this patient. This is a life/limb threatening event. This includes time spent evaluating patient, direct bedside care, chart review, placing orders, interpretation of diagnostic studies, discussion with consultants, patient, and/or family members regarding treatment decisions, as well as other required patient management activities. This time is exclusive of all separately billable procedures, and teaching time and separate from and in addition to any other critical care service time. (2) Abdominal aortic aneurysm dissection: (3) NSTEMI (non-ST elevated myocardial infarction): (4) Hypotension: (5) Syncope: (6) Aortic valve replaced: (7) H/O thoracic aortic aneurysm repair: Supervising Physician Co-Signing Physician Notes I have personally evaluated and examined this patient. I agree with assessment and plan of David Londono PA-C. History of Present Illness Attending Physician: Gloria Chen DO Patient is a 73-year-old female with a significant past medical history of bicuspid aortic valve requiring repair x2 and degenerative disc disease of the lumbar spine with previous lumbar decompression surgery. Apparently, for the last several weeks, the patient has been experiencing increasing low back pain with difficulty with ambulation secondary to pain. She had been seen in this emergency department on 04/20 with increasing low back pain. She underwent CT of the lumbar spine as well as abdomen pelvis which demonstrated no significant findings. The patient was placed on prednisone and had a follow-up with Dr. Manrique. During that appointment, the patient was placed on [place] and tramadol. She has been continuing to complain of back pain despite these medications. She reports that on Monday she had general malaise and had not felt well. She had a few episodes of lightheadedness. She thought it was medication related as she had restarted her [place]. She discontinued her medications. Last evening , however, she had complained of increasing lightheadedness as well as a flushed sensation. She said her counselor felt as though she was going to pass out. She attempted to use the restroom while EMS was in route and had a syncopal episode in route to the bathroom. Her did help her to the ground. She did strike her head on the door jam. In the emergency department, the patient was found to be hypotensive and tachycardic. She had a left bundle branch block seen on EKG. Troponin was elevated. Emergency department physician did speak with cardiology as well as interventional cardiology. At that point, it was suggested to provide Lopressor. She received 1 mg Lopressor with drop in her heart rate, however she had subsequent response with low blood pressure in the 80s. She had received a total of 2 L of IV fluids. She was evaluated by hospitalist who had ordered CTA of the chest/abdomen pelvis. On arrival in the ICU, the patient is awake, alert, and oriented. She complains of persistent low back pain which is unchanged from prior. She denies any numbness or weakness to the distal extremities. She complains of chronic tingling to the bilateral feet which is unchanged. She denies any loss of control bowel/bladder saddle anesthesia. Patient currently denies any headaches, dizziness, lightheadedness, chest pain, palpitations, shortness of breath, pleuritic pain, nausea, vomiting, or abdominal discomfort. Allergies Allergy/AdvReac Type Severity Reaction Status Date / Time amoxicillin Allergy Unknown HIVES Verified 05/01/18 22:32 Penicillins Allergy Unknown AMOXICILLIN Verified 05/01/18 22:32 -HIVES Sulfa (Sulfonamide Allergy Unknown HIVES Verified 05/01/18 22:32 Antibiotics) epinephrine AdvReac Unknown tachycardia Verified 05/01/18 22:32 Home Medications Home Medications Medication Instructions Recorded Confirmed Type aspirin, buffered 325 mg PO DAILY 05/01/18 05/01/18 History clarithromycin 1,000 mg PO UD 05/01/18 05/01/18 History hydrocodone-acetaminophen 1 tab PO Q6H PRN 05/01/18 05/01/18 History ibuprofen 200 - 400 mg PO TID PRN 05/01/18 05/01/18 History polyethylene glycol 3350 [Miralax] 17 g PO HS 05/01/18 05/01/18 History triamterene-hydrochlorothiazid 1 tab PO DAILY 05/01/18 05/01/18 History Patient History Medical History Pericardial effusion Prediabetes Lower back pain Paroxysmal atrial fibrillation Left bundle branch block CHERRI (acute kidney injury) Hyponatremia Elevated alkaline phosphatase level Elevated troponin Abdominal aortic aneurysm dissection Adnexal cyst (Acute) DJD (degenerative joint disease), lumbosacral (Chronic) HTN (hypertension) (Chronic) Non-occlusive coronary artery disease (Chronic) Vitamin B 12 deficiency (Chronic) Paroxysmal A-fib (Inactive) Surgical History Aortic valve replaced (2000) H/O thoracic aortic aneurysm repair (2015) S/P lumbar spinal arthrodesis S/P tubal ligation Status post aortic valve replacement with bioprosthetic valve (2016) History of fusion of lumbar spine (Inactive) Family History Other Diabetes mellitus Gout HTN (hypertension) Social History marital status: Current Living Situation: Spouse current occupational status: retired Other Information That Helps Us Care for You: Yes Feels Safe at Home: Yes Safety Concerns: Feels Safe At This Time Smoking Status: Former smoker Hx Alcohol Use: No Hx Substance Use: No Beliefs That Will Affect Care: None Communication Ability: Effective Review of Systems A complete 10 point review of systems was reviewed with the patient with pertinent positives and negatives as per history of present illness. All else were negative. Physical Exam 2 Vital Signs (Past 24 Hours): Last Vital Signs Temp 36.4 C L 05/02/18 01:00 Pulse 101 H 05/02/18 01:00 Resp 18 05/02/18 01:00 BP 111/64 05/02/18 01:00 Pulse Ox 97 05/02/18 01:00 Physical Exam: VITAL SIGNS - Vital signs and nursing notes were reviewed. GENERAL - 73-year-old female appearing her stated age who is in no acute distress. Communicates well with provider and answers questions appropriately. SKIN - Without rashes. HEAD - NC/AT. EYES - PERRL with EOMI bilaterally. Sclera anicteric. Palpebral conjunctiva pink and moist with no injection noted. EARS - No deformities of external structures noted on gross examination bilaterally. NOSE - Midline and without cyanosis. No epistaxis or purulent drainage noted. MOUTH/OROPHARYNX - Without perioral cyanosis. Buccal mucosa pink and moist and without leukoplakia. NECK - Neck with FROM. Supple to palpation. No nuchal rigidity. LUNGS - Chest wall symmetric without accessory muscle use, intercostals retractions, or central cyanosis. Normal vesicular breath sounds CTA B/L. No wheezes, rales, or rhonchi appreciated. CARDIAC - RRR with S1/S2. No murmur, rubs, or gallops appreciated. ABDOMEN - Abdominal contour flat without pulsations or visible masses. BS normoactive all four quadrants. No tenderness, palpable masses, hepatosplenomegaly, or ascites noted. EXTREMITIES - No clubbing or peripheral cyanosis. No pretibial edema present. +3 /5 radial and dorsalis pedis pulses palpated throughout. +5/5 strength noted in UE/LE bilaterally. NEUROLOGIC - Cranial nerves II through XII grossly intact. Sensory intact to light touch throughout. PSYCH - A&Ox3 and cooperates fully with examiner. Pt is very pleasant and interacts well with examiner. _ (1) Syncope Encounter type: Syncope type: unspecified Qualified Code(s): R55 - Syncope and collapse (2) Hypotension Hypotension type: unspecified hypotension type Trimester: Qualified Code(s) : I95.9 - Hypotension, unspecified
[2018-05-02 05:02] LABS: Albumin Level 2.8 gm/dl (3.4-5.0); BUN Creatinine Ratio 17.8 (10-20); Bilirubin Direct 0.2 mg/dl (0-0.2); Calcium 7.9 mg/dl (8.5-10.1); Creatinine Clr Calc Pharmacy 31.1 ml/min; Est GFR (African American) 39.3; Est GFR (Non-African American) 33.9; Potassium 4.7 mmol/L (3.5-5.1)
[2018-05-02 05:05] LABS: Bilirubin,Total 0.4 mg/dl (0.2-1); Total Protein 6.2 gm/dl (6.4-8.2)
[2018-05-02 05:59] LABS: Estimated Average Glucose 128 mg/dl
[2018-05-02] MEDS: SODIUM CHLORIDE 0.9% 1000ML 1,000 ML IV SCH ×3 (06:55→22:12)
[2018-05-02] MEDS: ACETAMINOPHEN 65 ML IV SCH ×3 (06:55→22:11)
--- NOTE | 2018-05-02 06:56 | CT Scan Report ---
CT ANGIOGRAPHY OF THE CHEST, ABDOMEN, AND PELVIS CLINICAL HISTORY: history of TAA s/p repair, syncope, hypotension COMPARISON STUDY: Chest radiograph May 01, 2018. TECHNIQUE: Before and following the IV administration of 118 mL of Optiray-320, helical axial images of the chest, abdomen and pelvis were obtained. Maximal intensity projections and sagittal and coron al reformats were viewed on an independent 3D workstation. IV contrast was administered without comp lication. Automated exposure control was utilized for the study. A dose lowering technique was util ized adhering to the principles of ALARA. CT DOSE: 1146.06 mGy.cm FINDINGS: There are postoperative findings consistent with median sternotomy with aortic valve repla cement and repair of the ascending aorta. Mild dilatation of the ascending aorta measuring 4.1 cm is noted. There is no intramural hematoma. There is no dissection within the thoracic aorta. The caliber of the descending thoracic aorta is normal. The heart is moderately enlarged. A small pericardial ef fusion is present. There is a small left pleural effusion. Trace right pleural effusion is noted. The re is no pneumothorax. There is no consolidation to suggest pneumonia. There is no evidence for pulmo nary edema by CT. Old mild T12 compression fracture is noted. Note is made of a 3.1 cm left lobe thyr oid nodule. No enlarged thoracic lymph nodes are noted. The abdomen and pelvis will be reported separ ately. However, a dissection flap involving the anterior aspect of the abdominal aorta beginning at t he takeoff of the superior mesenteric artery is noted. This is fully evaluated on the abdominal CT. IMPRESSION: 1. Expected findings status post aortic valve replacement and repair of an ascending aortic aneurysm with graft. Mild dilatation of the ascending aorta, measuring 4.1 cm. No dissection or intramural hem atoma within the thoracic aorta. 2. Partially imaged dissection with intimal flap of the abdominal aorta beginning at the takeoff of t he superior mesenteric artery. This is fully evaluated on the CTA of the abdomen and pelvis. Please s ee that report for further description. 3. Trace pericardial effusion. Small left and trace right pleural effusions. 4. Moderate cardiomegaly. Electronically signed by: Filippo Roque M.D. 05/02/2018 6:55 AM
--- NOTE | 2018-05-02 07:07 | CT Scan Report ---
CT angio abdomen pelvis w con CLINICAL HISTORY: 73 years-old Female presenting with TAA REPAIR, SYNCOPE. TECHNIQUE: Multidetector CT angiography of the abdomen and pelvis was performed after the administrat ion of intravenous contrast. 3-D volumetric and/or maximum intensity projection (MIP) images were sub sequently reconstructed for review. IV contrast: 118 mL of Optiray 320. A dose lowering technique was used consistent with the principles of ALARA (as low as reasonably achievable). Stenosis measurement s were based on NASCET-like criteria. COMPARISON: None. CT DOSE (mGy.cm): The estimated cumulative dose is unavailable. FINDINGS: Pumper Helper topogram: Median sternotomy wires and prosthetic aortic valve. A marked fusion hardware. Vasculature: Abdominal aortic dissection, the superior extent of which initiates immediately distal to the takeoff of the celiac artery and at the level of the superior mesenteric artery. The false lumen is located anteriorly. The superior mesenteric artery arises from the false lumen. Proximal fenestration is expe cted at the level of the inferior margin of the origin of the celiac artery. Renal arteries arise fro m the true lumen. Inferior mesenteric artery arises from the false lumen. The dissection does not ext end beyond the bifurcation. Evaluation is suboptimal given the phase of contrast due to injection dif ficulties. The dissection flap appears straight. No wall thickening of the aorta or surrounding fat i nfiltration. The appearance is most consistent with a chronic dissection. Maximal aortic diameter rob sures 2.1 cm. Maximal false lumen diameter measures 8 mm in comparison to the true lumen diameter at the same level measuring 14 mm. Bilateral common, external, and internal iliac arteries patent. Posts urgical or postprocedural change in the region of the left common femoral vessels possibly from prior vascular access. IVC patent. Remaining abdomen and pelvis: Lung bases: Minimal dependent changes likely atelectasis. No other focal nodule or infiltrate. Multic hamber enlargement of the heart. Aortic valve and mitral annular calcification. Small pericardial eff usion, which appears to have a water or near water density. Small left pleural effusion. Liver: Normal morphology. No liver lesion. Patent hepatic vasculature. Biliary: No intrahepatic biliary ductal dilatation. Mild extrahepatic biliary ductal dilatation. Gall bladder likely physiologically distended. No significant wall thickening. No pericholecystic fluid or inflammatory change. Pancreas: Mild parenchymal atrophy. No pancreatic ductal dilatation. Spleen: Normal. Adrenal glands: Normal. Kidneys and ureters: Normal. No hydronephrosis. Bladder: Normal. Pelvic organs: Uterus normal. Simple appearing 3.9 cm cyst in the left adnexa likely ovarian in origi n though exophytic to the otherwise normal-appearing left ovary. Right ovary normal. Bowel: Few diverticula at the junction of the descending and sigmoid colon. No wall thickening or per icolonic inflammatory change. The appendix is normal. No bowel obstruction. Small hiatal hernia. Duod enal diverticulum suggested at the level of the horizontal portion. Peritoneal cavity: Trace free fluid in the pelvis. Lymph nodes: No enlarged lymph nodes in the abdomen or pelvis. Abdominal wall: Mild body wall edema diffusely. Median sternotomy changes. Musculoskeletal: Degenerative changes of the spine. Posterior transpedicular screw and alexis fixation o f the lumbosacral region with laminectomy defects. Superior endplate concavity and mild anterior vert ebral body height loss of T12 consistent with a mild compression deformity. Mild osteopenia suggested . IMPRESSION: 1. Chronic appearing abdominal aortic dissection extending immediately distal to the celiac axis to the aortic bifurcation. Notably, the SMA arises from the false lumen, which is patent throughout and relatively smaller than the true lumen. No findings to suggest impending rupture. 2. 3.9 cm left adnexal cyst, likely ovarian in etiology. Given the late postmenopausal age of the pa tient in size of this finding, pelvic ultrasound is recommended on nonurgent basis. The [place] [employer] radi[employer] incidental findings committee recommendations. 3. Age-indeterminate mild compression fracture of T12. Correlate with point tenderness to assess for acuity. 4. Small pericardial effusion area 5. Mild cardiomegaly. Electronically signed by: Alex Carpio M.D. 05/02/2018 7:06 AM
[2018-05-02] MEDS: LIDOCAINE 5% 1 PATCH TD SCH (09:02)
[2018-05-02] MEDS: ASPIRIN 81 MG ECTAB PO SCH (09:02)
[2018-05-02] MEDS ORDERED: NORMOSOL-R 1,000 ML IV SCH (10:00)
--- NOTE | 2018-05-02 10:42 | Cardiology Consultation ---
Date of Consultation May 02, 2018 Assessment & Plan (1) Elevated troponin: Discussed with Dr. Juarez. Patient has had a several week history of progressive low back pain. Last evening she experienced lightheadedness, nausea and diaphoresis followed by a syncopal episode while walking to the bathroom. She was hypotensive and tachycardic upon arrival. Her troponin was elevated at 2.78 and has remained flat. She has not experienced any chest discomfort and cardiac cath in 2016 only demonstrated 30% mid LAD stenosis. Her EKG demonstrates a LBBB which is unchanged and echo does not demonstrate any wall motion abnormalities. Her rise in troponin was likely due to demand ischemia rather than acute coronary syndrome. Can discontinue heparin at this time. (2) Syncope: This was likely vasovagal in nature. She has been hypotensive and agree with holding diuretic therapy. No arrhythmia on telemetry. (3) Aortic valve replaced: Echo demonstrates appropriately functioning bioprosthetic aortic valve. (4) H/O thoracic aortic aneurysm repair: (5) Abdominal aortic aneurysm dissection: Appears to be chronic based on radiology report. Vascular surgery consult is pending. Supervising Physician Co-Signing Physician Notes ATTENDING ADDENDUM (Dr. Juarez): Agree with above findings and plan by Saloni Yen PA-C. Case discussed with Dr. Leahy. 1. Syncope: Suspect vasovagal syncope secondary to combination of pain and relative hypotension at recent baseline likely due to poor oral oral intake and diuretic-induced hypovolemia. Her syncope did not coincide with any abrupt increase in pain or change in clinical status and her aortic dissection appears chronic on CT, perhaps subacute (based on symptoms probably 2-weeks-old). 2. Demand ischemia: Suspect troponin elevation due to demand ischemia in hypotensive patient with nonocclusive coronary disease secondary to syncopal episode rather than STEMI or non STEMI given her modest and flat troponin curve , lack of wall motion abnormalities on echocardiogram, and chronic left bundle branch block, all in the context of no chest pain or other chest symptoms. Certainly, would hold diuretic given her hypotension and probable volume depletion on admission, this could eventually be restarted as an outpatient if warranted by recurrent hypertension. 3. Subacute abdominal aortic dissection: Defer to Dr. Moreira regarding anticoagulation, no cardiac need for anticoagulation at this time. Similarly, no role for beta-karel or other agents given her relative hypotension. Agree with maintaining low normal systolic BP given apparent recent abdominal aortic dissection. 4. S/P lumbar arthrodesis: There may be a component of chronic low back pain and she does have an age-indeterminate T12 compression fracture, as well as some localized back tenderness, making it difficult to discern the relative contribution of apparent recent aortic aneurysm versus sciatica type symptoms to her on pain. May need pain management consultation at some point. 5. Bioprosthetic aortic valve/aortic root replacement 2016: . Appropriately functioning. 6. Debilitation: Patient will likely need assistance with activities of daily living upon discharge, perhaps a stay in a rehab facility or senior care will be warranted given her debilitated state due to pain. Will continue to follow along during her hospital stay. 7. History of paroxysmal atrial fibrillation: Sinus rhythm this hospitalization , not chronically anticoagulated given rarity her PAF History of Present Illness Attending Physician: Sugey Leahy MD History of Present Illness Mrs. Li is a 73 year old female with a medical history significant for aortic stenosis status post pericardial tissue AVR 2000 and redo bioprosthetic valve 2016, history of postop afib, nonobstructive CAD (30% mid LAD 2016), ascending aortic aneurysm, hypertension, and spinal stenosis. She is followed by Dr. Juarez. She has a history of aortic stenosis and initially underwent pericardial tissue AVR in 2000. In 2016 she underwent redo bioprosthetic aortic valve and aortic root replacement. Cardiac catheterization at that time demonstrated 30% mid LAD stenosis. She reports that around she developed left sided low back and buttocks discomfort. She was seen by her PCP and was prescribed prednisone and hydrocodone without any significant improvement. Around New Years her pain worsened and she developed bilateral lumbar back/buttocks pain with radiation into her lower extremities. She was seen by Dr. Manrique who initiated her on [place] and Tramadol. Two days ago she started feeling poorly in general. She reports that she was experiencing lightheadedness and general malaise. Yesterday she continued to feel poorly and discontinued her pain medications thinking they may be causing her symptoms. Around 730 pm last evening she experienced lightheadedness, presyncope, nausea and diaphoresis. She felt she needed to use the restroom and while attempting to get there she apparently had a syncopal episode. She states that her vision went black and she does recall falling. Her witnessed the event. She states she only lost consciousness for a very brief period of time. She denies experiencing any chest discomfort, dyspnea or palpitatilons. She was brought to [facility] via ambulance. In the emergency department she was noted to be hypotensive and tachycardic. Her initial troponin was elevated at 2.78. Her EKG demonstrated a LBBB which is unchanged since 2016. There was concern of possible acute AAA dissection causing her symptoms. A CTA an abdominal aortic dissection which appears chronic in nature without findings to suggest impending rupture. She continues to experience back pain. She experienced some lightheadedness while ambulating to the restroom this morning. No near syncope or syncope. She denies chest discomfort, dyspnea, orthopnea, PND or palpitations. ROS: 10 point review of systems was completed and otherwise negative unless stated in HPI Social Hx: Lives with . Has 2 daughters who were present during exam today. Quit smoking in 1975. Allergies Allergy/AdvReac Type Severity Reaction Status Date / Time amoxicillin Allergy Unknown HIVES Verified 05/01/18 22:32 Penicillins Allergy Unknown AMOXICILLIN Verified 05/01/18 22:32 -HIVES Sulfa (Sulfonamide Allergy Unknown HIVES Verified 05/01/18 22:32 Antibiotics) epinephrine AdvReac Unknown tachycardia Verified 05/01/18 22:32 Home Medications Home Medications Medication Instructions Recorded Confirmed Type aspirin, buffered 325 mg PO DAILY 05/01/18 05/01/18 History clarithromycin 1,000 mg PO UD 05/01/18 05/01/18 History hydrocodone-acetaminophen 1 tab PO Q6H PRN 05/01/18 05/01/18 History ibuprofen 200 - 400 mg PO TID PRN 05/01/18 05/01/18 History polyethylene glycol 3350 [Miralax] 17 g PO HS 05/01/18 05/01/18 History triamterene-hydrochlorothiazid 1 tab PO DAILY 05/01/18 05/01/18 History Patient History Medical History DJD (degenerative joint disease), lumbosacral (Chronic) HTN (hypertension) (Chronic) Non-occlusive coronary artery disease (Chronic) Vitamin B 12 deficiency (Chronic) Paroxysmal A-fib (Inactive) Surgical History Aortic valve replaced (2000) H/O thoracic aortic aneurysm repair (2016) S/P lumbar spinal arthrodesis S/P tubal ligation Status post aortic valve replacement with bioprosthetic valve (2016) History of fusion of lumbar spine (Inactive) Family History Other Diabetes mellitus Gout HTN (hypertension) Social History marital status: Current Living Situation: Spouse current occupational status: retired Other Information That Helps Us Care for You: Yes Feels Safe at Home: Yes Safety Concerns: Feels Safe At This Time Smoking Status: Former smoker Hx Alcohol Use: No Hx Substance Use: No Beliefs That Will Affect Care: None Communication Ability: Effective Review of Systems Constitutional: + fatigue, + malaise and + weakness Physical Exam 2 Vital Signs (Past 24 Hours): Last Vital Signs Temp 36.9 C 05/02/18 08:00 Pulse 100 H 05/02/18 09:30 Resp 25 H 05/02/18 09:30 BP 101/72 05/02/18 09:30 Pulse Ox 95 05/02/18 09:15 Physical Exam: General: No acute distress. HEENT: Head is normal. PERRLA. EOMI. Sclerae anicteric. Ears, nose and throat unremarkable. Mucous membranes moist. Neck: Normal carotid upstrokes, no bruits. No appreciable JVD. Lungs: Clear to auscultation bilaterally without rales, rhonchi or wheezes. Cardiac: Regular rate and rhythm. Grade 1/6 basal systolic murmur with intact closure sound. 2/6 HSM apex. No gallop or rub. Abdomen: Soft and nontender. Nondistended. No abdominal bruit. Back: + Vertebral and paravertebral tenderness high lumbar region. Extremities/vascular: Well perfused. No peripheral edema. Warm. Palpable dorsalis pedis pulse. Skin: No rash Neurologic: Nonfocal Psychiatric: Affect appropriate. Alert and oriented. Results & Data Laboratory Results Laboratory Results - last 24 hr 05/01/18 05/01/18 05/01/18 22:01 22:01 22:01 WBC 10.22 RBC 4.39 Hgb 13.1 Hct 39.9 MCV 90.9 MCH 29.8 MCHC 32.8 RDW Std Deviation 46.4 H RDW Coeff of Zoran 14.0 Plt Count 337 MPV 9.0 Immature Gran % (Auto) 0.5 Neut % (Auto) 81.9 Lymph % (Auto) 9.9 [place] % (Auto) 7.1 Eos % (Auto) 0.4 Baso % (Auto) 0.2 Immature Gran # (Auto) 0.05 H Neut # (Auto) 8.37 H Lymph # (Auto) 1.01 L [place] # (Auto) 0.73 H Eos # (Auto) 0.04 Baso # (Auto) 0.02 PT INR APTT PTT Ratio Sodium 133 L Potassium 4.2 Chloride 101 Carbon Dioxide 23 Anion Gap 9.0 BUN 28 H Creatinine 1.30 H Est Cr Clr Drug Dosing 37.1 Est GFR ( Amer) 47.5 Est GFR (Non-Af Amer) 41.0 BUN/Creatinine Ratio 21.7 H Glucose 143 H POC Glucose Estimat Average Glucose Hemoglobin A1c Calcium 8.2 L Phosphorus Magnesium 2.1 Total Bilirubin 0.3 Direct Bilirubin AST 22 ALT 28 Alkaline Phosphatase 224 H Troponin I 2.780 H* Total Protein 6.8 Albumin 3.0 L Globulin 3.8 Albumin/Globulin Ratio 0.8 L Triglycerides Cholesterol LDL Cholesterol, Calc VLDL Cholesterol, Calc HDL Cholesterol Cholesterol/HDL Ratio TSH 0.997 Urine Color Urine Appearance Urine pH Ur Specific [place] Urine Protein Urine Glucose (UA) Urine Ketones Urine Blood Urine Nitrite Urine Bilirubin Urine Urobilinogen Ur Leukocyte Esterase Urine WBC (Auto) Urine RBC (Auto) U Hyaline Cast (Auto) U Epithel Cells (Auto) Urine Bacteria (Auto) Nasal Screen MRSA (PCR) Blood Type A Positive Blood Type Recheck Antibody Screen NEGATIVE Crossmatch See Detail 05/01/18 05/02/18 05/02/18 22:01 00:50 01:10 WBC RBC Hgb Hct MCV MCH MCHC RDW Std Deviation RDW Coeff of Zoran Plt Count MPV Immature Gran % (Auto) Neut % (Auto) Lymph % (Auto) [place] % (Auto) Eos % (Auto) Baso % (Auto) Immature Gran # (Auto) Neut # (Auto) Lymph # (Auto) [place] # (Auto) Eos # (Auto) Baso # (Auto) PT 9.7 INR 1.0 APTT 25.6 PTT Ratio 1.0 Sodium Potassium Chloride Carbon Dioxide Anion Gap BUN Creatinine Est Cr Clr Drug Dosing Est GFR ( Amer) Est GFR (Non-Af Amer) BUN/Creatinine Ratio Glucose POC Glucose Estimat Average Glucose Hemoglobin A1c Calcium Phosphorus Magnesium Total Bilirubin Direct Bilirubin AST ALT Alkaline Phosphatase Troponin I Total Protein Albumin Globulin Albumin/Globulin Ratio Triglycerides Cholesterol LDL Cholesterol, Calc VLDL Cholesterol, Calc HDL Cholesterol Cholesterol/HDL Ratio TSH Urine Color Yellow Urine Appearance Cloudy H Urine pH 5.0 Ur Specific [place] 1.012 Urine Protein Negative Urine Glucose (UA) Negative Urine Ketones Negative Urine Blood Negative Urine Nitrite Negative Urine Bilirubin Negative Urine Urobilinogen Negative Ur Leukocyte Esterase 1+ H Urine WBC (Auto) 10-30 H Urine RBC (Auto) 0-4 U Hyaline Cast (Auto) 1-5 U Epithel Cells (Auto) >30 H Urine Bacteria (Auto) 2+ H Nasal Screen MRSA (PCR) Negative Blood Type Blood Type Recheck Antibody Screen Crossmatch 05/02/18 05/02/18 05/02/18 01:14 01:14 04:13 WBC RBC Hgb Hct MCV MCH MCHC RDW Std Deviation RDW Coeff of Zoran Plt Count MPV Immature Gran % (Auto) Neut % (Auto) Lymph % (Auto) [place] % (Auto) Eos % (Auto) Baso % (Auto) Immature Gran # (Auto) Neut # (Auto) Lymph # (Auto) [place] # (Auto) Eos # (Auto) Baso # (Auto) PT INR APTT PTT Ratio Sodium 131 L Potassium 4.7 Chloride 102 Carbon Dioxide 23 Anion Gap 6.0 BUN 27 H Creatinine 1.52 H Est Cr Clr Drug Dosing 31.1 Est GFR ( Amer) 39.3 Est GFR (Non-Af Amer) 33.9 BUN/Creatinine Ratio 17.8 Glucose 129 H POC Glucose Estimat Average Glucose 128 Hemoglobin A1c 6.1 H Calcium 7.9 L Phosphorus 3.3 Magnesium Total Bilirubin 0.4 Direct Bilirubin 0.2 AST 30 ALT 31 Alkaline Phosphatase 218 H Troponin I 2.730 H* Total Protein 6.2 L Albumin 2.8 L Globulin Albumin/Globulin Ratio Triglycerides 142 Cholesterol 163 LDL Cholesterol, Calc 71 VLDL Cholesterol, Calc 28 HDL Cholesterol 64 Cholesterol/HDL Ratio 3 TSH Urine Color Urine Appearance Urine pH Ur Specific [place] Urine Protein Urine Glucose (UA) Urine Ketones Urine Blood Urine Nitrite Urine Bilirubin Urine Urobilinogen Ur Leukocyte Esterase Urine WBC (Auto) Urine RBC (Auto) U Hyaline Cast (Auto) U Epithel Cells (Auto) Urine Bacteria (Auto) Nasal Screen MRSA (PCR) Blood Type Blood Type Recheck Antibody Screen Crossmatch 05/02/18 05/02/18 05/02/18 04:17 08:10 09:10 WBC RBC Hgb Hct MCV MCH MCHC RDW Std Deviation RDW Coeff of Zoran Plt Count MPV Immature Gran % (Auto) Neut % (Auto) Lymph % (Auto) [place] % (Auto) Eos % (Auto) Baso % (Auto) Immature Gran # (Auto) Neut # (Auto) Lymph # (Auto) [place] # (Auto) Eos # (Auto) Baso # (Auto) PT INR APTT PTT Ratio Sodium Potassium Chloride Carbon Dioxide Anion Gap BUN Creatinine Est Cr Clr Drug Dosing Est GFR ( Amer) Est GFR (Non-Af Amer) BUN/Creatinine Ratio Glucose POC Glucose 120 H Estimat Average Glucose Hemoglobin A1c Calcium Phosphorus Magnesium Total Bilirubin Direct Bilirubin AST ALT Alkaline Phosphatase Troponin I 2.590 H* Total Protein Albumin Globulin Albumin/Globulin Ratio Triglycerides Cholesterol LDL Cholesterol, Calc VLDL Cholesterol, Calc HDL Cholesterol Cholesterol/HDL Ratio TSH Urine Color Urine Appearance Urine pH Ur Specific [place] Urine Protein Urine Glucose (UA) Urine Ketones Urine Blood Urine Nitrite Urine Bilirubin Urine Urobilinogen Ur Leukocyte Esterase Urine WBC (Auto) Urine RBC (Auto) U Hyaline Cast (Auto) U Epithel Cells (Auto) Urine Bacteria (Auto) Nasal Screen MRSA (PCR) Blood Type Blood Type Recheck A Positive Antibody Screen Crossmatch Diagnostic Findings Chest CTA: Expected findings status post aortic valve replacement and repair of an ascending aortic aneurysm with graft. Mild dilatation of the ascending aorta , measuring 4.1 cm. No dissection or intramural hematoma within the thoracic aorta. Partially imaged dissection with intimal flap of the abdominal aorta beginning at the takeoff of the superior mesenteric artery. This is fully evaluated on the CTA of the abdomen and pelvis. Please see that report for further description.Trace pericardial effusion. Small left and trace right pleural effusions. Moderate cardiomegaly. Abdominal CTA: . Chronic appearing abdominal aortic dissection extending immediately distal to the celiac axis to the aortic bifurcation. Notably, the SMA arises from the false lumen, which is patent throughout and relatively smaller than the true lumen. No findings to suggest impending rupture. 3.9 cm left adnexal cyst, likely ovarian in etiology. Given the late postmenopausal age of the patient in size of this finding, pelvic ultrasound is recommended on nonurgent basis. [employer] incidental findings committee recommendations. Age-indeterminate mild compression fracture of T12. Correlate with point tenderness to assess for acuity. Small pericardial effusion area. Mild cardiomegaly. Echo 05/02/18: Normal LV size and function. Moderate concentric LVH. Abnormal septal motion consistent with postoperative state. EF 60-65%. Mildly dilated RV with moderate dysfunction. Grade I diastolic dysfunction. Bioprosthetic aortic valve with expected transvalvular gradients. Severe mitral annular calcification. Mild mitral regurgitation. Dilated IVC, estimated RA 15 mmHg. ECG Additional Comments: ECG: Left bundle branch block Telemetry reviewed: sinus rhythm and sinus tachycardia. LBBB. No arrhythmia or pauses. _ (1) Syncope Encounter type: Syncope type: unspecified Qualified Code(s): R55 - Syncope and collapse
[2018-05-02] MEDS: PANTOprazole 40 MG in SYRINGE 0 ML IV SCH (11:01)
--- NOTE | 2018-05-02 14:21 | Consultation ---
Date of Consultation May 02, 2018 Assessment & Plan (1) Abdominal aortic aneurysm dissection: At this point no intervention is needed. There is flow present through both the true and false lumen. She has good pulses in her feet. Her mild renal insufficiency I do not think is related to the dissection. At this point I would keep her pressure in the low 100s. She will also need to be anticoagulated at this time. We will follow along while she is in the hospital. Once discharged she will need a follow-up ultrasound in 6 months of her abdominal aorta. Thank you for letting us participate in the care of this patient. History of Present Illness Reason for Consultation: Abdominal aortic dissection Requesting Physician: This is a 73-year-old female who had aortic valve replacement last year for a bicuspid valve and also repair of an ascending aortic aneurysm. She presented to the ER yesterday with diaphoresis and 2-week history of back pain which is getting progressively worse. She was also hypotensive at that time. Workup showed a isolated aortic dissection below the superior mesenteric artery down to the bifurcation. Her back pain occurs mostly with moving and changing position. She also has a history of lumbar spine surgery with hardware. She denies any chest pain. Attending Physician: Sugey Leahy MD Allergies Allergy/AdvReac Type Severity Reaction Status Date / Time amoxicillin Allergy Unknown HIVES Verified 05/01/18 22:32 Penicillins Allergy Unknown AMOXICILLIN Verified 05/01/18 22:32 -HIVES Sulfa (Sulfonamide Allergy Unknown HIVES Verified 05/01/18 22:32 Antibiotics) epinephrine AdvReac Unknown tachycardia Verified 05/01/18 22:32 Home Medications Home Medications Medication Instructions Recorded Confirmed Type aspirin, buffered 325 mg PO DAILY 05/01/18 05/01/18 History clarithromycin 1,000 mg PO UD 05/01/18 05/01/18 History hydrocodone-acetaminophen 1 tab PO Q6H PRN 05/01/18 05/01/18 History ibuprofen 200 - 400 mg PO TID PRN 05/01/18 05/01/18 History polyethylene glycol 3350 [Miralax] 17 g PO HS 05/01/18 05/01/18 History triamterene-hydrochlorothiazid 1 tab PO DAILY 05/01/18 05/01/18 History Patient History Medical History DJD (degenerative joint disease), lumbosacral (Chronic) HTN (hypertension) (Chronic) Non-occlusive coronary artery disease (Chronic) Vitamin B 12 deficiency (Chronic) Paroxysmal A-fib (Inactive) Surgical History Aortic valve replaced (2000) H/O thoracic aortic aneurysm repair (2015) S/P lumbar spinal arthrodesis S/P tubal ligation Status post aortic valve replacement with bioprosthetic valve (2016) History of fusion of lumbar spine (Inactive) Family History Other Diabetes mellitus Gout HTN (hypertension) Social History marital status: Current Living Situation: Spouse current occupational status: retired Other Information That Helps Us Care for You: Yes Feels Safe at Home: Yes Safety Concerns: Feels Safe At This Time Smoking Status: Former smoker Hx Alcohol Use: No Hx Substance Use: No Beliefs That Will Affect Care: None Communication Ability: Effective Review of Systems Constitutional: no problem reported Respiratory: no problem reported Cardiovascular: no chest pain, no dyspnea and no problem reported Gastrointestinal: no problem reported Musculoskeletal: + back pain Neurologic: no problem reported Psychiatric: no problem reported Physical Exam 2 Vital Signs (Past 24 Hours): Last Vital Signs Temp 36.8 C 05/02/18 12:30 Pulse 102 H 05/02/18 13:10 Resp 28 H 05/02/18 13:10 BP 92/60 L 05/02/18 13:10 Pulse Ox 96 05/02/18 13:10 Constitutional: WD/WN, vitals as above Respiratory: normal respiratory effort; no respiratory distress Cardiovascular: Rate/Rhythm: regular rate and regular rhythm Vessels: femoral pulses present, posterior tibial pulses present, dorsalis pedis pulses present and radial pulses present Gastrointestinal (Abdomen): Inspection/Auscultation: abdomen not distended Percussion/Palpation: abdomen nontender and no guarding Musculoskeletal: Extremities: extremities normal to inspection Neurologic: CN's II-XI intact bilaterally Motor/Sensory: normal movement and no sensory deficit Psychiatric: Orientation: alert and oriented x 3
[2018-05-02] MEDS ORDERED: Heparin IV Standard *NO* Bolus ONE (19:06)
[2018-05-02 19:42] LABS: Hematocrit (blood only) 36.8 % (37-47); Hemoglobin 11.9 g/dL (12.0-16.0); Mean Corpuscular Volume 91.3 fL (80-100); Mean Platelet Volume 9.3 fL (7.4-10.4); Platelet Count 311 K/uL (130-400); RDW Coefficient of Variation 14.7 % (11.5-14.5); RDW Standard Deviation 49.7 fL (36.4-46.3); Red Blood Count 4.03 M/uL (4.2-5.4); White Blood Count 6.56 K/uL (4.8-10.8)
[2018-05-02 19:47] LABS: Mean Corpuscular Hgb Conc 32.3 g/dL (32-36)
[2018-05-02 19:56] LABS: Partial Thromboplastin Time 26.6 Seconds (21.0-31.0)
[2018-05-02] MEDS: HEPARIN SODIUM/DEXTROSE 25,000 UNITS/500 ML BAG IV SCH (20:06)
[2018-05-02] MEDS: POLYETHYLENE (MIRALAX) 17 GM PACK PO SCH (20:11)
--- NOTE | 2018-05-02 21:07 | Hospitalist Progress Note ---
Date of Service May 02, 2018 Assessment & Plan (1) Hypotension: Dalia Li is a 73 y.o female with history of bicuspid aortic valve s/p replacement and subsequent aortic root repair, history of lumbar spinal stenosis s/p fusion, lone atrial fibrillation, LBBB, and constipation admitted for further evaluation and management of acute syncopal episode. Low blood pressure secondary to poor p.o. intake in the setting of diuretic use and dehydration as an outpatient. See below (2) Syncope: Occurred during evening of 05/01/18 Occurred in the setting of poor p.o. intake due to severe lumbar back pain and radiculopathy over the previous 2 weeks, with continued diuretic use and likely was vasovagal in nature. CT angiogram did find a possibly chronic versus subacute abdominal aortic dissection, but this was not the cause of her syncope. Her hemoglobin is stable. She was hypotensive and tachycardic upon admission which is likely due to hypovolemia. She also had prerenal azotemia with an acute kidney injury consistent with dehydration in the setting of diuretic use and poor p.o. intake. EKG findings: sinus tachycardia, chronic left bundle branch block -Troponin elevated as addressed below-secondary to demand myocardial ischemia Echocardiogram without wall motion abnormalities (3) Abdominal aortic aneurysm dissection: Likely an incidental finding. The false lumen that is near the origin of the SMA does have flow and she has no evidence of bowel ischemia or abdominal pain. Vascular surgery is seen the patient and also does not feel that her acute kidney injury is secondary to her abdominal aortic dissection. -Keep blood pressure less than 120 systolic-currently her blood pressure is quite low on a nicardipine drip -Discussed with hereditary cancer program coordinator-hereditary cancer program coordinator plans to discontinue the nicardipine drip tonight and will continue to monitor blood pressures carefully -Need to also prevent tachycardia which is ongoing at this time -Vascular surgery is recommending anticoagulation-heparin drip restarted at this time -will need to sort out whether antithrombotic therapy with antiplatelet is reasonable versus continuing heparin and then transitioning to Coumadin until dissection is healed -Appreciate vascular surgery consultation (4) Elevated troponin: Initially was 2.7, then 2.5, now back up to 4.2-cardiology thinks this is secondary to myocardial demand ischemia in the setting of hypotension and known nonobstructive coronary artery disease. Cardiac catheterization from 2016 showed 30% blockage in the LAD. -Echocardiogram here without wall motion abnormalities Prior to several weeks ago when her back pain started, she reports being very active and walking daily with no evidence of angina at any point. She continues to not have any chest pain. Troponin likely trending upward secondary to persistent hypotension -Discontinuing nicardipine drip as above -Continue aspirin -Heparin drip not needed as per cardiology for NSTEMI, but remains on it for aortic dissection as above -Appreciate cardiology consultation (5) Acute lumbar back pain: Started around April 05 after 2 days of heavy [place] shopping and carrying large bags around. She has a history of lumbar spinal fusion with instrumentation. She has been followed by orthopedic spine surgery very recently as an outpatient -took prednisone course which did nothing. She then was on ketorolac for 5 days which did help somewhat but then she stopped it. Then she was on hydrocodone which made her feel very poorly and then led to her syncopal episode prompting admission. She does have some radiculopathy down the right lower extremity I do not think her lower back pain symptoms are related to her abdominal dissection at all She also has an age indeterminant mild compression fracture of T12 which may also be contributing to her pain. -Continue pain control with Tylenol as needed, lidocaine patch -She is hesitant to take anything stronger but could consider tramadol as needed -Consider orthopedic surgery consultation while inpatient -PT/OT consults will be needed (6) Aortic valve replaced: History of valve replacement in 2011 for bicuspid aortic valve, valve is functioning well (7) H/O thoracic aortic aneurysm repair: History of aortic root replacement in 2016 (8) Elevated alkaline phosphatase level: Alkaline phosphatase elevated in the 200s which is new from previous. Possibly could be from vertebral compression fracture or lumbar spine issue? -Check GGT to rule out alk phos from liver source and follow alkaline phosphatase levels (9) Hyponatremia: Slightly worse today at 131-unclear why. Could be from diuretic use -Check urine sodium, urine osmolality, and serum osmolality -Follow BMP -Holding diuretic (10) CHERRI (acute kidney injury): BUN/creatinine ratio on admission was greater than 20 indicating a prerenal acidemia possibly from dehydration in the setting of diuretic use as above Creatinine slightly worse today at 1.52 and may be secondary to some ATN from hypotension Baseline creatinine from 2017 was 1.1 -Check urinalysis for granular casts -follow BMP -Discontinuing nicardipine as above and following blood pressure closely (11) Left bundle branch block: Chronic secondary to previous cardiac surgery (12) Paroxysmal atrial fibrillation: History of what sounds like lone atrial fibrillation many years ago, not requiring anticoagulation chronically at this time (13) Adnexal cyst: 3.7 cm left adnexal mass seen on CT incidentally -Needs nonurgent pelvic ultrasound follow-up as an outpatient (14) Prediabetes: Hemoglobin A1c here is elevated at 6.1% -No need for treatment at this time -Follow as an outpatient (15) Pericardial effusion: Small pericardial effusion noted on echocardiogram, no evidence of tamponade -Should be followed by cardiology in the future (16) DVT prophylaxis: Heparin drip Disposition-remain in ICU overnight Subjective Patient reports she still having significant lower back pain with radiation through the bilateral buttocks but lower down into the posterior thigh on the right. This is been constant and worse with changes in position or movement since April 05. She reports poor p.o. intake over the last several weeks due to pain and continue to take her home diuretic. The patient denies any abdominal pain at all. She denies any chest pain or shortness of breath. She is feeling somewhat lightheaded today. Since admission, she was placed on nicardipine drip to keep her blood pressure low in the setting of possible subacute abdominal aortic dissection. Heparin drip was on board and then initially stopped this morning as was not thought to have an NSTEMI, but then vascular surgery recommended continuing it for dissection of the aorta. Blood pressures have been on the low side throughout the day. Urine output is mildly low. I discussed the case at length with cardiology and the hereditary cancer program coordinator. Review of Systems All systems reviewed & are unremarkable except as noted in HPI & below Physical Exam 2 Vital Signs (Past 24 Hours): Last Vital Signs Temp 36.9 C 05/02/18 16:01 Pulse 102 H 05/02/18 18:00 Resp 23 05/02/18 18:00 BP 96/68 L 05/02/18 18:00 Pulse Ox 94 05/02/18 16:01 Constitutional: WD/WN, vitals as above Eyes: PERRL, conjunctivae normal, anicteric sclerae ENMT: external ear and nose normal, oropharynx normal Neck: trachea midline, no thyromegaly Respiratory: normal respiratory effort, lungs clear to auscultation Cardiovascular: RRR, no murmur, no edema (With loud S2) Heart Sounds: no murmur Gastrointestinal (Abdomen): normal bowel sounds, soft, nontender, no hepatosplenomegaly Musculoskeletal: Extremities: extremities normal to inspection; no cyanosis and no clubbing Skin: no rashes, warm and dry Neurologic: moves all extremities and awake; no focal motor deficits Psychiatric: A+Ox3, euthymic affect Genitourinary: + abnormal external appearance (Stovall catheter in place draining clear yellow urine) Results & Data Laboratory Results 05/02/18 05/02/18 05/02/18 Range/Units 19:35 19:35 17:12 WBC 6.56 (4.8-10.8) K/uL RBC 4.03 L (4.2-5.4) M/uL Hgb 11.9 L (12.0-16.0) g/dL Hct 36.8 L (37-47) % MCV 91.3 (80-100) fL MCH 29.5 (25-34) pg MCHC 32.3 (32-36) g/dL RDW Std Deviation 49.7 H (36.4-46.3) fL RDW Coeff of Zoran 14.7 H (11.5-14.5) % Plt Count 311 (130-400) K/uL MPV 9.3 (7.4-10.4) fL Immature Gran % (Auto) % Neut % (Auto) % Lymph % (Auto) % Gilliam % (Auto) % Eos % (Auto) % Baso % (Auto) % Immature Gran # (Auto) (0.00-0.02) K/uL Neut # (Auto) (1.4-6.5) K/uL Lymph # (Auto) (1.2-3.4) K/uL Gilliam # (Auto) (0.11-0.59) K/uL Eos # (Auto) (0-0.5) K/uL Baso # (Auto) (0-0.2) K/uL PT 10.0 (9.0-12.0) Seconds INR 1.0 (0.9-1.1) APTT 26.6 (21.0-31.0) Seconds PTT Ratio 1.0 Sodium (136-145) mmol/L Potassium (3.5-5.1) mmol/L Chloride (98-107) mmol/L Carbon Dioxide (21-32) mmol/L Anion Gap (3-11) BUN (7-18) mg/dl Creatinine (0.6-1.2) mg/dl Est Cr Clr Drug Dosing ml/min Est GFR ( Amer) Est GFR (Non-Af Amer) BUN/Creatinine Ratio (10-20) Glucose (70-99) mg/dl POC Glucose (70-99) Estimat Average Glucose mg/dl Hemoglobin A1c (4.5-5.6) % Calcium (8.5-10.1) mg/dl Phosphorus (2.5-4.9) mg/dl Magnesium (1.8-2.4) mg/dl Total Bilirubin (0.2-1) mg/dl Direct Bilirubin (0-0.2) mg/dl AST (15-37) U/L ALT (12-78) U/L Alkaline Phosphatase (45-117) U/L Troponin I 4.280 H* (0-0.045) ng/ml Total Protein (6.4-8.2) gm/dl Albumin (3.4-5.0) gm/dl Globulin (2.5-4.0) gm/dl Albumin/Globulin Ratio (0.9-2) Triglycerides (0-150) mg/dl Cholesterol (0-200) mg/dl LDL Cholesterol, Calc mg/dl VLDL Cholesterol, Calc mg/dl HDL Cholesterol mg/dl Cholesterol/HDL Ratio TSH (0.300-4.500) uIu/ml Urine Color Urine Appearance (Clear) Urine pH (4.5-7.5) Ur Specific Sharon (1.000-1.030) Urine Protein (Negative) Urine Glucose (UA) (Negative) Urine Ketones (Negative) Urine Blood (Negative) Urine Nitrite (Negative) Urine Bilirubin (Negative) Urine Urobilinogen (Negative) Ur Leukocyte Esterase (Negative) Urine WBC (Auto) (0-5) /hpf Urine RBC (Auto) (0-4) /hpf U Hyaline Cast (Auto) (0-5) /lpf U Epithel Cells (Auto) (0-5) /lpf Urine Bacteria (Auto) (Negative) Nasal Screen MRSA (PCR) (Negative) Blood Type Blood Type Recheck Antibody Screen Crossmatch 05/02/18 05/02/18 05/02/18 Range/Units 16:34 12:09 09:10 WBC (4.8-10.8) K/uL RBC (4.2-5.4) M/uL Hgb (12.0-16.0) g/dL Hct (37-47) % MCV (80-100) fL MCH (25-34) pg MCHC (32-36) g/dL RDW Std Deviation (36.4-46.3) fL RDW Coeff of Zoran (11.5-14.5) % Plt Count (130-400) K/uL MPV (7.4-10.4) fL Immature Gran % (Auto) % Neut % (Auto) % Lymph % (Auto) % Gilliam % (Auto) % Eos % (Auto) % Baso % (Auto) % Immature Gran # (Auto) (0.00-0.02) K/uL Neut # (Auto) (1.4-6.5) K/uL Lymph # (Auto) (1.2-3.4) K/uL Gilliam # (Auto) (0.11-0.59) K/uL Eos # (Auto) (0-0.5) K/uL Baso # (Auto) (0-0.2) K/uL PT (9.0-12.0) Seconds INR (0.9-1.1) APTT (21.0-31.0) Seconds PTT Ratio Sodium (136-145) mmol/L Potassium (3.5-5.1) mmol/L Chloride (98-107) mmol/L Carbon Dioxide (21-32) mmol/L Anion Gap (3-11) BUN (7-18) mg/dl Creatinine (0.6-1.2) mg/dl Est Cr Clr Drug Dosing ml/min Est GFR ( Amer) Est GFR (Non-Af Amer) BUN/Creatinine Ratio (10-20) Glucose (70-99) mg/dl POC Glucose 133 H 112 H (70-99) Estimat Average Glucose mg/dl Hemoglobin A1c (4.5-5.6) % Calcium (8.5-10.1) mg/dl Phosphorus (2.5-4.9) mg/dl Magnesium (1.8-2.4) mg/dl Total Bilirubin (0.2-1) mg/dl Direct Bilirubin (0-0.2) mg/dl AST (15-37) U/L ALT (12-78) U/L Alkaline Phosphatase (45-117) U/L Troponin I 2.590 H* (0-0.045) ng/ml Total Protein (6.4-8.2) gm/dl Albumin (3.4-5.0) gm/dl Globulin (2.5-4.0) gm/dl Albumin/Globulin Ratio (0.9-2) Triglycerides (0-150) mg/dl Cholesterol (0-200) mg/dl LDL Cholesterol, Calc mg/dl VLDL Cholesterol, Calc mg/dl HDL Cholesterol mg/dl Cholesterol/HDL Ratio TSH (0.300-4.500) uIu/ml Urine Color Urine Appearance (Clear) Urine pH (4.5-7.5) Ur Specific Sharon (1.000-1.030) Urine Protein (Negative) Urine Glucose (UA) (Negative) Urine Ketones (Negative) Urine Blood (Negative) Urine Nitrite (Negative) Urine Bilirubin (Negative) Urine Urobilinogen (Negative) Ur Leukocyte Esterase (Negative) Urine WBC (Auto) (0-5) /hpf Urine RBC (Auto) (0-4) /hpf U Hyaline Cast (Auto) (0-5) /lpf U Epithel Cells (Auto) (0-5) /lpf Urine Bacteria (Auto) (Negative) Nasal Screen MRSA (PCR) (Negative) Blood Type Blood Type Recheck Antibody Screen Crossmatch 05/02/18 05/02/18 05/02/18 Range/Units 08:10 04:17 04:13 WBC (4.8-10.8) K/uL RBC (4.2-5.4) M/uL Hgb (12.0-16.0) g/dL Hct (37-47) % MCV (80-100) fL MCH (25-34) pg MCHC (32-36) g/dL RDW Std Deviation (36.4-46.3) fL RDW Coeff of Zoran (11.5-14.5) % Plt Count (130-400) K/uL MPV (7.4-10.4) fL Immature Gran % (Auto) % Neut % (Auto) % Lymph % (Auto) % Gilliam % (Auto) % Eos % (Auto) % Baso % (Auto) % Immature Gran # (Auto) (0.00-0.02) K/uL Neut # (Auto) (1.4-6.5) K/uL Lymph # (Auto) (1.2-3.4) K/uL Gilliam # (Auto) (0.11-0.59) K/uL Eos # (Auto) (0-0.5) K/uL Baso # (Auto) (0-0.2) K/uL PT (9.0-12.0) Seconds INR (0.9-1.1) APTT (21.0-31.0) Seconds PTT Ratio Sodium 131 L (136-145) mmol/L Potassium 4.7 (3.5-5.1) mmol/L Chloride 102 (98-107) mmol/L Carbon Dioxide 23 (21-32) mmol/L Anion Gap 6.0 (3-11) BUN 27 H (7-18) mg/dl Creatinine 1.52 H (0.6-1.2) mg/dl Est Cr Clr Drug Dosing 31.1 ml/min Est GFR ( Amer) 39.3 Est GFR (Non-Af Amer) 33.9 BUN/Creatinine Ratio 17.8 (10-20) Glucose 129 H (70-99) mg/dl POC Glucose 120 H (70-99) Estimat Average Glucose mg/dl Hemoglobin A1c (4.5-5.6) % Calcium 7.9 L (8.5-10.1) mg/dl Phosphorus (2.5-4.9) mg/dl Magnesium (1.8-2.4) mg/dl Total Bilirubin 0.4 (0.2-1) mg/dl Direct Bilirubin 0.2 (0-0.2) mg/dl AST 30 (15-37) U/L ALT 31 (12-78) U/L Alkaline Phosphatase 218 H (45-117) U/L Troponin I (0-0.045) ng/ml Total Protein 6.2 L (6.4-8.2) gm/dl Albumin 2.8 L (3.4-5.0) gm/dl Globulin (2.5-4.0) gm/dl Albumin/Globulin Ratio (0.9-2) Triglycerides 142 (0-150) mg/dl Cholesterol 163 (0-200) mg/dl LDL Cholesterol, Calc 71 mg/dl VLDL Cholesterol, Calc 28 mg/dl HDL Cholesterol 64 mg/dl Cholesterol/HDL Ratio 3 TSH (0.300-4.500) uIu/ml Urine Color Urine Appearance (Clear) Urine pH (4.5-7.5) Ur Specific Sharon (1.000-1.030) Urine Protein (Negative) Urine Glucose (UA) (Negative) Urine Ketones (Negative) Urine Blood (Negative) Urine Nitrite (Negative) Urine Bilirubin (Negative) Urine Urobilinogen (Negative) Ur Leukocyte Esterase (Negative) Urine WBC (Auto) (0-5) /hpf Urine RBC (Auto) (0-4) /hpf U Hyaline Cast (Auto) (0-5) /lpf U Epithel Cells (Auto) (0-5) /lpf Urine Bacteria (Auto) (Negative) Nasal Screen MRSA (PCR) (Negative) Blood Type Blood Type Recheck A Positive Antibody Screen Crossmatch 05/02/18 05/02/18 05/02/18 Range/Units 01:14 01:14 01:10 WBC (4.8-10.8) K/uL RBC (4.2-5.4) M/uL Hgb (12.0-16.0) g/dL Hct (37-47) % MCV (80-100) fL MCH (25-34) pg MCHC (32-36) g/dL RDW Std Deviation (36.4-46.3) fL RDW Coeff of Zoran (11.5-14.5) % Plt Count (130-400) K/uL MPV (7.4-10.4) fL Immature Gran % (Auto) % Neut % (Auto) % Lymph % (Auto) % Gilliam % (Auto) % Eos % (Auto) % Baso % (Auto) % Immature Gran # (Auto) (0.00-0.02) K/uL Neut # (Auto) (1.4-6.5) K/uL Lymph # (Auto) (1.2-3.4) K/uL Gilliam # (Auto) (0.11-0.59) K/uL Eos # (Auto) (0-0.5) K/uL Baso # (Auto) (0-0.2) K/uL PT (9.0-12.0) Seconds INR (0.9-1.1) APTT (21.0-31.0) Seconds PTT Ratio Sodium (136-145) mmol/L Potassium (3.5-5.1) mmol/L Chloride (98-107) mmol/L Carbon Dioxide (21-32) mmol/L Anion Gap (3-11) BUN (7-18) mg/dl Creatinine (0.6-1.2) mg/dl Est Cr Clr Drug Dosing ml/min Est GFR ( Amer) Est GFR (Non-Af Amer) BUN/Creatinine Ratio (10-20) Glucose (70-99) mg/dl POC Glucose (70-99) Estimat Average Glucose 128 mg/dl Hemoglobin A1c 6.1 H (4.5-5.6) % Calcium (8.5-10.1) mg/dl Phosphorus 3.3 (2.5-4.9) mg/dl Magnesium (1.8-2.4) mg/dl Total Bilirubin (0.2-1) mg/dl Direct Bilirubin (0-0.2) mg/dl AST (15-37) U/L ALT (12-78) U/L Alkaline Phosphatase (45-117) U/L Troponin I 2.730 H* (0-0.045) ng/ml Total Protein (6.4-8.2) gm/dl Albumin (3.4-5.0) gm/dl Globulin (2.5-4.0) gm/dl Albumin/Globulin Ratio (0.9-2) Triglycerides (0-150) mg/dl Cholesterol (0-200) mg/dl LDL Cholesterol, Calc mg/dl VLDL Cholesterol, Calc mg/dl HDL Cholesterol mg/dl Cholesterol/HDL Ratio TSH (0.300-4.500) uIu/ml Urine Color Urine Appearance (Clear) Urine pH (4.5-7.5) Ur Specific Sharon (1.000-1.030) Urine Protein (Negative) Urine Glucose (UA) (Negative) Urine Ketones (Negative) Urine Blood (Negative) Urine Nitrite (Negative) Urine Bilirubin (Negative) Urine Urobilinogen (Negative) Ur Leukocyte Esterase (Negative) Urine WBC (Auto) (0-5) /hpf Urine RBC (Auto) (0-4) /hpf U Hyaline Cast (Auto) (0-5) /lpf U Epithel Cells (Auto) (0-5) /lpf Urine Bacteria (Auto) (Negative) Nasal Screen MRSA (PCR) Negative (Negative) Blood Type Blood Type Recheck Antibody Screen Crossmatch 05/02/18 05/01/18 05/01/18 Range/Units 00:50 22:01 22:01 WBC (4.8-10.8) K/uL RBC (4.2-5.4) M/uL Hgb (12.0-16.0) g/dL Hct (37-47) % MCV (80-100) fL MCH (25-34) pg MCHC (32-36) g/dL RDW Std Deviation (36.4-46.3) fL RDW Coeff of Zoran (11.5-14.5) % Plt Count (130-400) K/uL MPV (7.4-10.4) fL Immature Gran % (Auto) % Neut % (Auto) % Lymph % (Auto) % Gilliam % (Auto) % Eos % (Auto) % Baso % (Auto) % Immature Gran # (Auto) (0.00-0.02) K/uL Neut # (Auto) (1.4-6.5) K/uL Lymph # (Auto) (1.2-3.4) K/uL Gilliam # (Auto) (0.11-0.59) K/uL Eos # (Auto) (0-0.5) K/uL Baso # (Auto) (0-0.2) K/uL PT 9.7 (9.0-12.0) Seconds INR 1.0 (0.9-1.1) APTT 25.6 (21.0-31.0) Seconds PTT Ratio 1.0 Sodium (136-145) mmol/L Potassium (3.5-5.1) mmol/L Chloride (98-107) mmol/L Carbon Dioxide (21-32) mmol/L Anion Gap (3-11) BUN (7-18) mg/dl Creatinine (0.6-1.2) mg/dl Est Cr Clr Drug Dosing ml/min Est GFR ( Amer) Est GFR (Non-Af Amer) BUN/Creatinine Ratio (10-20) Glucose (70-99) mg/dl POC Glucose (70-99) Estimat Average Glucose mg/dl Hemoglobin A1c (4.5-5.6) % Calcium (8.5-10.1) mg/dl Phosphorus (2.5-4.9) mg/dl Magnesium (1.8-2.4) mg/dl Total Bilirubin (0.2-1) mg/dl Direct Bilirubin (0-0.2) mg/dl AST (15-37) U/L ALT (12-78) U/L Alkaline Phosphatase (45-117) U/L Troponin I (0-0.045) ng/ml Total Protein (6.4-8.2) gm/dl Albumin (3.4-5.0) gm/dl Globulin (2.5-4.0) gm/dl Albumin/Globulin Ratio (0.9-2) Triglycerides (0-150) mg/dl Cholesterol (0-200) mg/dl LDL Cholesterol, Calc mg/dl VLDL Cholesterol, Calc mg/dl HDL Cholesterol mg/dl Cholesterol/HDL Ratio TSH (0.300-4.500) uIu/ml Urine Color Yellow Urine Appearance Cloudy H (Clear) Urine pH 5.0 (4.5-7.5) Ur Specific Sharon 1.012 (1.000-1.030) Urine Protein Negative (Negative) Urine Glucose (UA) Negative (Negative) Urine Ketones Negative (Negative) Urine Blood Negative (Negative) Urine Nitrite Negative (Negative) Urine Bilirubin Negative (Negative) Urine Urobilinogen Negative (Negative) Ur Leukocyte Esterase 1+ H (Negative) Urine WBC (Auto) 10-30 H (0-5) /hpf Urine RBC (Auto) 0-4 (0-4) /hpf U Hyaline Cast (Auto) 1-5 (0-5) /lpf U Epithel Cells (Auto) >30 H (0-5) /lpf Urine Bacteria (Auto) 2+ H (Negative) Nasal Screen MRSA (PCR) (Negative) Blood Type A Positive Blood Type Recheck Antibody Screen NEGATIVE Crossmatch See Detail 05/01/18 05/01/18 Range/Units 22:01 22:01 WBC 10.22 (4.8-10.8) K/uL RBC 4.39 (4.2-5.4) M/uL Hgb 13.1 (12.0-16.0) g/dL Hct 39.9 (37-47) % MCV 90.9 (80-100) fL MCH 29.8 (25-34) pg MCHC 32.8 (32-36) g/dL RDW Std Deviation 46.4 H (36.4-46.3) fL RDW Coeff of Zoran 14.0 (11.5-14.5) % Plt Count 337 (130-400) K/uL MPV 9.0 (7.4-10.4) fL Immature Gran % (Auto) 0.5 % Neut % (Auto) 81.9 % Lymph % (Auto) 9.9 % Gilliam % (Auto) 7.1 % Eos % (Auto) 0.4 % Baso % (Auto) 0.2 % Immature Gran # (Auto) 0.05 H (0.00-0.02) K/uL Neut # (Auto) 8.37 H (1.4-6.5) K/uL Lymph # (Auto) 1.01 L (1.2-3.4) K/uL Gilliam # (Auto) 0.73 H (0.11-0.59) K/uL Eos # (Auto) 0.04 (0-0.5) K/uL Baso # (Auto) 0.02 (0-0.2) K/uL PT (9.0-12.0) Seconds INR (0.9-1.1) APTT (21.0-31.0) Seconds PTT Ratio Sodium 133 L (136-145) mmol/L Potassium 4.2 (3.5-5.1) mmol/L Chloride 101 (98-107) mmol/L Carbon Dioxide 23 (21-32) mmol/L Anion Gap 9.0 (3-11) BUN 28 H (7-18) mg/dl Creatinine 1.30 H (0.6-1.2) mg/dl Est Cr Clr Drug Dosing 37.1 ml/min Est GFR ( Amer) 47.5 Est GFR (Non-Af Amer) 41.0 BUN/Creatinine Ratio 21.7 H (10-20) Glucose 143 H (70-99) mg/dl POC Glucose (70-99) Estimat Average Glucose mg/dl Hemoglobin A1c (4.5-5.6) % Calcium 8.2 L (8.5-10.1) mg/dl Phosphorus (2.5-4.9) mg/dl Magnesium 2.1 (1.8-2.4) mg/dl Total Bilirubin 0.3 (0.2-1) mg/dl Direct Bilirubin (0-0.2) mg/dl AST 22 (15-37) U/L ALT 28 (12-78) U/L Alkaline Phosphatase 224 H (45-117) U/L Troponin I 2.780 H* (0-0.045) ng/ml Total Protein 6.8 (6.4-8.2) gm/dl Albumin 3.0 L (3.4-5.0) gm/dl Globulin 3.8 (2.5-4.0) gm/dl Albumin/Globulin Ratio 0.8 L (0.9-2) Triglycerides (0-150) mg/dl Cholesterol (0-200) mg/dl LDL Cholesterol, Calc mg/dl VLDL Cholesterol, Calc mg/dl HDL Cholesterol mg/dl Cholesterol/HDL Ratio TSH 0.997 (0.300-4.500) uIu/ml Urine Color Urine Appearance (Clear) Urine pH (4.5-7.5) Ur Specific Sharon (1.000-1.030) Urine Protein (Negative) Urine Glucose (UA) (Negative) Urine Ketones (Negative) Urine Blood (Negative) Urine Nitrite (Negative) Urine Bilirubin (Negative) Urine Urobilinogen (Negative) Ur Leukocyte Esterase (Negative) Urine WBC (Auto) (0-5) /hpf Urine RBC (Auto) (0-4) /hpf U Hyaline Cast (Auto) (0-5) /lpf U Epithel Cells (Auto) (0-5) /lpf Urine Bacteria (Auto) (Negative) Nasal Screen MRSA (PCR) (Negative) Blood Type Blood Type Recheck Antibody Screen Crossmatch _ (1) Hypotension Hypotension type: unspecified hypotension type Trimester: Qualified Code(s) : I95.9 - Hypotension, unspecified (2) Syncope Encounter type: Syncope type: unspecified Qualified Code(s): R55 - Syncope and collapse (3) Acute lumbar back pain Back pain laterality: Sciatica laterality: Sciatica presence:
[2018-05-02 22:46] LABS: Appearance Urine Clear (Clear); Bacteria Urine Automated Negative (Negative); Bilirubin Urine Negative (Negative); Color Urine Yellow; Epithelial Cell Urine Auto >30 /lpf (0-5); Glucose Urine UA Negative (Negative); Ketones Urine Negative (Negative); Leukocyte Esterase Urine Negative (Negative); Nitrite Urine Negative (Negative); Protein Urine Trace (Negative); Urobilinogen Urine Negative (Negative)
[2018-05-02 23:34] LABS: Albumin Level 2.7 gm/dl (3.4-5.0); BUN Creatinine Ratio 17.7 (10-20); Bilirubin Direct 0.2 mg/dl (0-0.2); Calcium 7.9 mg/dl (8.5-10.1); Creatinine Clr Calc Pharmacy 26.2 ml/min; Est GFR (Non-African American) 27.6; Potassium 4.1 mmol/L (3.5-5.1)
[2018-05-02 23:44] LABS: Bilirubin,Total 0.4 mg/dl (0.2-1); Total Protein 6.2 gm/dl (6.4-8.2); Troponin I 4.23 ng/ml (0-0.045)
[2018-05-03 02:10] LABS: Basophils # (auto) 0.01 K/uL (0-0.2); Basophils % (auto) 0.2 %; Eosinophils # (auto) 0.03 K/uL (0-0.5); Eosinophils % (auto) 0.5 %; Hematocrit (blood only) 36.2 % (37-47); Hemoglobin 11.8 g/dL (12.0-16.0); Immature Granulocytes # (auto) 0.03 K/uL (0.00-0.02); Immature Granulocytes % (auto) 0.5 %; Lymphocytes # (auto) 1.37 K/uL (1.2-3.4); Lymphocytes % (auto) 21.9 %; Mean Corpuscular Hgb Conc 32.6 g/dL (32-36); Mean Corpuscular Volume 91.9 fL (80-100); Mean Platelet Volume 9.4 fL (7.4-10.4); Monocytes # (auto) 0.51 K/uL (0.11-0.59); Monocytes % (auto) 8.2 %; Neutrophils % (auto) 68.7 %; Platelet Count 284 K/uL (130-400); RDW Coefficient of Variation 14.7 % (11.5-14.5); RDW Standard Deviation 50.2 fL (36.4-46.3); Red Blood Count 3.94 M/uL (4.2-5.4); White Blood Count 6.25 K/uL (4.8-10.8)
[2018-05-03 02:26] LABS: Partial Thromboplastin Ratio 2.2; Prothrombin Time 10.4 Seconds (9.0-12.0)
[2018-05-03 02:27] LABS: Albumin Level 2.7 gm/dl (3.4-5.0); BUN Creatinine Ratio 17.2 (10-20); Calcium 7.9 mg/dl (8.5-10.1); Creatinine Clr Calc Pharmacy 26.8 ml/min; Est GFR (African American) 32.9; Est GFR (Non-African American) 28.4; Partial Thromboplastin Time 56.9 Seconds (21.0-31.0); Potassium 4.3 mmol/L (3.5-5.1)
[2018-05-03 02:30] LABS: Albumin Globulin Ratio 0.8 (0.9-2); Bilirubin,Total 0.3 mg/dl (0.2-1); Globulin 3.2 gm/dl (2.5-4.0); Total Protein 5.9 gm/dl (6.4-8.2)
[2018-05-03] MEDS: SODIUM CHLORIDE 0.9% 1000ML 1,000 ML IV SCH (05:49)
[2018-05-03] MEDS: ACETAMINOPHEN 65 ML IV SCH ×2 (05:50→15:16)
[2018-05-03] MEDS: ASPIRIN 81 MG ECTAB PO SCH (07:44)
[2018-05-03] MEDS: LIDOCAINE 5% 1 PATCH TD SCH (07:44)
--- NOTE | 2018-05-03 08:30 | Critical Care Progress Note ---
Date of Service May 03, 2018 Assessment & Plan (1) Admitted to intensive care unit: Reason Critically Ill: 73-year-old female with acute NSTEMI and syncopal episode found to have dissecting abdominal aortic aneurysm. NEURO - * CAM ICU: NEGATIVE * Pain: Acetaminophen/Lidoderm patch. * Consider narcotics in the setting of severe pain to avoid hypertensive response. CARDIAC/VASCULAR - * AAA Dissection: * Chronic no surgical intervention at this time * Discussed with Lillie * Keep BPs lower. * h/o Aortic repair x2 * Continue ASA per outpatient Rx. * Ascending thoracic aortic aneurysm previously repaired. * Syncope: * Likely related to vasovagal syncope in the setting of volume depletion after pain and nausea * Reviewed echo reviewed cardiology consult * EKG: New LBBB. * TSH normal * She is in a difficult position: the goal for the dissection is lower blood pressure; she had syncopal event in the setting of possible volume depletion diuretic for blood pressure control. While the patient remains in the hospital to start low-dose metoprolol given that the patient is mildly tachycardic at baseline carefully watch patient for adverse effects. RESPIRATORY - * No h/o pulmonary disease. GI/NUTRITION - * AHA Diet RENAL/LYTES - * CHERRI improving * Discontinue additional fluids HEME - * Stable H&H * On heparin infusion per vascular recommendations * Heparin is 4 chronic dissection versus NSTEMI, radiology does not believe NSTEMI ID - * Remains afebrile LINES/IV ACCESS - * PIVs x2 DVT PROPHYLAXIS - * Heparin infusion * SCDs I have personally spent 40 minutes of critical care time in the direct management of this patient. This is a life/limb threatening event. This includes time spent evaluating patient, direct bedside care, chart review, placing orders, interpretation of diagnostic studies, discussion with consultants, patient, and/or family members regarding treatment decisions, as well as other required patient management activities. This time is exclusive of all separately billable procedures, and teaching time and separate from and in addition to any other critical care service time. (2) Abdominal aortic aneurysm dissection: (3) NSTEMI (non-ST elevated myocardial infarction): (4) Hypotension: (5) Syncope: (6) Aortic valve replaced: (7) H/O thoracic aortic aneurysm repair: Physical Exam 2 Vital Signs (Past 24 Hours): Last Vital Signs Temp 36.8 C 05/03/18 04:01 Pulse 100 H 05/03/18 06:31 Resp 20 05/03/18 06:31 BP 102/62 05/03/18 06:31 Pulse Ox 94 05/03/18 06:31 _ (1) Syncope Encounter type: Syncope type: unspecified Qualified Code(s): R55 - Syncope and collapse (2) Hypotension Hypotension type: unspecified hypotension type Trimester: Qualified Code(s) : I95.9 - Hypotension, unspecified
[2018-05-03] MEDS ORDERED: METOPROLOL TARTRATE 25 MG TAB PO SCH (11:30)
[2018-05-03] MEDS: PANTOprazole 40 MG in SYRINGE 0 ML IV SCH (11:45)
--- NOTE | 2018-05-03 12:52 | Cardiology Progress Note ---
Date of Service May 03, 2018 Assessment & Plan (1) Demand ischemia: Further rise of troponin likely usual peak and decay after precipitating event (syncope). In the absence of wall motion abnormalities on echocardiogram or chest pain, given non-interpretable ECG (LBBB), still suspect supply/demand mismatch with demand ischemia the rather than acute thrombotic event. Check CK to further quantify any myocardial damage. Given her relative hypotension, would NOT utilize beta-blockers (risk of hypoperfusion of coronaries) at this time (current SBP 87 mm Hg and orthostatic Sx noted earlier). Continue aspirin. (2) Elevated troponin: (3) Abdominal aortic aneurysm dissection: Discussed with Dr. Moreira, he feels the dissection is likely chronic but that further anticoagulation with heparin was warranted for now. He also suggested goal SBP in the 120 mm Hg range. (4) H/O thoracic aortic aneurysm repair: (5) Pericardial effusion: Trivial effusion on echocardiogram. Of no clinical significance. Will not need specific follow-up. (6) History of left bundle branch block (LBBB): (7) Paroxysmal atrial fibrillation: NSR this admission. Remote afib episode post-op after 2016 cardiac surgery, no reccurrence, therefore NOT chronically anticoagulated. (8) Lower back pain: Likely lumbar radiculopathy is her source of symptoms. She is debilitated and may need a rehab stay. Need to allow BP to normalize to avoid orthostatic Sx and allow physical therapy to progress. Her minor tachycardia HR 90-110 over last 24 hours is likely physiologic response to hypotension. Subjective 73-year-old woman well known to me from the outpatient setting with history of bioprosthetic aortic valve replacement with subsequent redo/aortic arch replacement (2015), chronic left bundle branch block since that time, and remote /transient PAF, who was admitted 05/01/18 after a syncopal episode. She has a h /o extensive lower back surgery and a intermittent sciatica, she had several weeks of back pain prior to admission and was found on CT of the abdomen and pelvis to have a aortic dissection which did not appear acute (uncertain whether subacute or chronic). She had no chest pain at any time and has no wall motion abnormalities on echocardiogram, but did have a troponin elevation into the 4 range. Today, she is fatigued and notes a 3-4/10 lower back pain while seated, this increases to 7-8/10 when she attempts to walk. She also becomes lightheaded and must sit down. No chest pain, dyspnea, or subjective palpitations. She does note a mild nonproductive cough. No orthopnea or PND. No change in trivial ankle edema. Fair appetite at lunch. Physical Exam 2 Vital Signs (Past 24 Hours): Last Vital Signs Temp 36.7 C 05/03/18 08:00 Pulse 105 H 05/03/18 11:01 Resp 21 05/03/18 11:01 BP 93/75 L 05/03/18 11:01 Pulse Ox 97 05/03/18 11:03 Vitals as above. She appears fatigued but not acutely distressed. Skin: no ecchymoses or generalized lesions. HEENT: unremarkable. Neck: Jugular venous pulse just above the clavicle at 90, no obvious carotid bruits. Lungs: Clear bilaterally. Cardiac: regular rhythm with 2/6 basal systolic ejection murmur and intact aortic closure sound, 2/6 apical holosystolic murmur radiating to the axilla.. Abdomen benign. Extremities: Trace pretibial edema, warm, good capillary refill. Neurologic: normal affect, nonfocal. Results & Data Diagnostic Findings Laboratory Tests 05/02/18 05/02/18 05/03/18 17:12 22:59 02:03 WBC Hgb APTT 56.9 H* BUN Creatinine Troponin I 4.280 H* 4.230 H* 05/03/18 05/03/18 05/03/18 02:03 02:03 08:27 WBC 6.25 Hgb 11.8 L APTT BUN 30 H Creatinine 1.76 H Troponin I 3.000 H* CT PElvis/abdomen 05/02: Chronic appearing abdominal aortic dissection extending immediately distal to the celiac axis to the aortic bifurcation. Notably, the SMA arises from the false lumen, which is patent throughout and relatively smaller than the true lumen. No findings to suggest impending rupture.
--- NOTE | 2018-05-03 13:40 | Hospitalist Progress Note ---
Date of Service May 03, 2018 Assessment & Plan (1) Hypotension: Dalia Li is a 73 y.o female with history of bicuspid aortic valve s/p replacement and subsequent aortic root repair, history of lumbar spinal stenosis s/p fusion, lone atrial fibrillation, LBBB, and constipation admitted for further evaluation and management of acute syncopal episode. Low blood pressure secondary to poor p.o. intake in the setting of diuretic use and dehydration as an outpatient. Low blood pressures persisted upon admission as she was on a nicardipine drip initially which was then stopped. She was then given metoprolol this morning for tachycardia in the setting of aortic dissection. Again, her blood pressures are too low to handle this -Discontinue metoprolol (2) Syncope: Occurred during evening of 05/01/18 at home Occurred in the setting of poor p.o. intake due to severe lumbar back pain and radiculopathy over the previous 2 weeks, with continued diuretic use and likely was vasovagal in nature. CT angiogram did find a possibly chronic versus subacute abdominal aortic dissection, but this was not the cause of her syncope. Her hemoglobin is stable. She was hypotensive and tachycardic upon admission which is likely due to hypovolemia. She also had prerenal azotemia with an acute kidney injury consistent with dehydration in the setting of diuretic use and poor p.o. intake. EKG findings: sinus tachycardia, chronic left bundle branch block -Troponin elevated as addressed below-secondary to demand myocardial ischemia Echocardiogram without wall motion abnormalities (3) Abdominal aortic aneurysm dissection: Likely an incidental finding. The false lumen that is near the origin of the SMA does have flow and she has no evidence of bowel ischemia or abdominal pain. Vascular surgery has seen the patient and also does not feel that her acute kidney injury is secondary to her abdominal aortic dissection. -Keep blood pressure less than 120 systolic-currently her blood pressure is quite low-the nicardipine drip has since been discontinued and we will now discontinue metoprolol as above -Tachycardia likely compensatory for hypotension and should resolve his hypotension resolves -Vascular surgery is recommending anticoagulation for at least 3 months-heparin drip continues and will start Coumadin today -Follow PT/INR/PTT -Appreciate vascular surgery consultation-she will need follow-up with vascular surgery in their office in 3 months with an ultrasound of the aorta at that time -there is a chance this will become a chronic dissection (4) Elevated troponin: Type 2 NC in the setting of hypotension associated with hypovolemia Initially was 2.7, then 2.5, then back up to 4.2, now down to 3.0-cardiology thinks this is secondary to myocardial demand ischemia in the setting of hypotension and known nonobstructive coronary artery disease. Cardiac catheterization from 2016 showed 30% blockage in the LAD. -Echocardiogram here without wall motion abnormalities Prior to several weeks ago when her back pain started, she reports being very active and walking daily with no evidence of angina at any point. She continues to not have any chest pain. -Avoid hypotension-cannot tolerate beta-karel at this time -Continue aspirin -Heparin drip not needed as per cardiology for NSTEMI, but remains on it for aortic dissection as above -Appreciate cardiology consultation (5) Acute lumbar back pain: Started around April 05 after 2 days of heavy [place] shopping and carrying large bags around. She has a history of lumbar spinal fusion with instrumentation. She has been followed by orthopedic spine surgery very recently as an outpatient -took prednisone course which did nothing. She then was on ketorolac for 5 days which did help somewhat but then she stopped it. Then she was on hydrocodone which made her feel very poorly and then led to her syncopal episode prompting admission. She does have some radiculopathy down the right lower extremity I do not think her lower back pain symptoms are related to her abdominal dissection at all She also has an age indeterminant mild compression fracture of T12 which may also be contributing to her pain. -Continue pain control with Tylenol as needed, lidocaine patch -She is hesitant to take anything stronger but could consider tramadol as needed -Appreciate orthopedic consultation-no surgical intervention at this time- recommends gabapentin and or IV steroid use for pain and possible epidural steroid injection in the future-although this would not be likely given her anticoagulation -PT/OT consults placed in pending due to ongoing lightheadedness (6) Aortic valve replaced: History of valve replacement in 2011 for bicuspid aortic valve, valve is functioning well (7) H/O thoracic aortic aneurysm repair: History of aortic root replacement in 2016 (8) Elevated alkaline phosphatase level: Alkaline phosphatase elevated in the 200s which is new from previous. Possibly could be from vertebral compression fracture or lumbar spine issue? Slightly improved today -Check GGT to rule out alk phos from liver source and follow alkaline phosphatase levels-GGT pending (9) Hyponatremia: Improved today to 134-could be from home diuretic use - urine sodium 24, urine osmolality quite elevated at 542, and serum osmolality normal today at 289 -Follow BMP -Holding diuretic (10) CHERRI (acute kidney injury): BUN/creatinine ratio on admission was greater than 20 indicating a prerenal acidemia possibly from dehydration in the setting of diuretic use as above Creatinine peaked at 1.8 yesterday evening and now improved to 1.76 -May also be secondary to some ATN from hypotension Baseline creatinine from 2017 was 1.1 -UA negative for granular casts -follow BMP -Avoiding hypotension as above (11) Left bundle branch block: Chronic secondary to previous cardiac surgery (12) Paroxysmal atrial fibrillation: History of what sounds like lone atrial fibrillation many years ago, not requiring anticoagulation chronically at this time (13) Adnexal cyst: 3.7 cm left adnexal mass seen on CT incidentally -Needs nonurgent pelvic ultrasound follow-up as an outpatient-discussed with the patient and her daughter at the bedside today (14) Prediabetes: Hemoglobin A1c here is elevated at 6.1% -No need for treatment at this time -Follow as an outpatient (15) Pericardial effusion: Trace to small pericardial effusion noted on echocardiogram, no evidence of tamponade -Cardiology notes that this is inconsequential and does not need to be followed (16) DVT prophylaxis: Heparin drip, Coumadin Disposition-stable for downgrade to telemetry unit today Subjective Patient is complaining of lightheadedness today. Blood pressures have been low. She was started on metoprolol for mild tachycardia, but again had low blood pressures with it. Cardiology recommended that it be discontinued She still is having lower back pain with movement as before. She does not want to take anything strong for pain. She got up with physical therapy today and was too lightheaded to complete the evaluation. I discussed the case with cardiology, vascular surgery, and application security engineer today. She denies any chest pain or shortness of breath. Denies any abdominal pain. Her appetite is low but she is eating. Review of Systems All systems reviewed & are unremarkable except as noted in HPI & below Physical Exam 2 Vital Signs (Past 24 Hours): Last Vital Signs Temp 36.7 C 05/03/18 08:00 Pulse 105 H 05/03/18 11:01 Resp 21 05/03/18 11:01 BP 93/75 L 05/03/18 11:01 Pulse Ox 97 05/03/18 11:03 Constitutional: WD/WN, vitals as above Eyes: PERRL, conjunctivae normal, anicteric sclerae ENMT: external ear and nose normal, oropharynx normal Neck: trachea midline, no thyromegaly Respiratory: normal respiratory effort, lungs clear to auscultation Cardiovascular: RRR, no murmur, no edema (With loud S2) Gastrointestinal (Abdomen): normal bowel sounds, soft, nontender, no hepatosplenomegaly Musculoskeletal: Extremities: extremities normal to inspection; no cyanosis and no clubbing Skin: no rashes, warm and dry Neurologic: moves all extremities and awake; no focal motor deficits Psychiatric: A+Ox3, euthymic affect Results & Data Laboratory Results 05/03/18 05/03/18 05/03/18 Range/Units 13:48 08:27 02:03 WBC (4.8-10.8) K/uL RBC (4.2-5.4) M/uL Hgb (12.0-16.0) g/dL Hct (37-47) % MCV (80-100) fL MCH (25-34) pg MCHC (32-36) g/dL RDW Std Deviation (36.4-46.3) fL RDW Coeff of Zoran (11.5-14.5) % Plt Count (130-400) K/uL MPV (7.4-10.4) fL Immature Gran % (Auto) % Neut % (Auto) % Lymph % (Auto) % [place] % (Auto) % Eos % (Auto) % Baso % (Auto) % Immature Gran # (Auto) (0.00-0.02) K/uL Neut # (Auto) (1.4-6.5) K/uL Lymph # (Auto) (1.2-3.4) K/uL [place] # (Auto) (0.11-0.59) K/uL Eos # (Auto) (0-0.5) K/uL Baso # (Auto) (0-0.2) K/uL PT (9.0-12.0) Seconds INR (0.9-1.1) APTT (21.0-31.0) Seconds PTT Ratio Sodium 134 L (136-145) mmol/L Potassium 4.3 (3.5-5.1) mmol/L Chloride 106 (98-107) mmol/L Carbon Dioxide 22 (21-32) mmol/L Anion Gap 6.0 (3-11) BUN 30 H (7-18) mg/dl Creatinine 1.76 H (0.6-1.2) mg/dl Est Cr Clr Drug Dosing 26.8 ml/min Est GFR ( Amer) 32.9 Est GFR (Non-Af Amer) 28.4 BUN/Creatinine Ratio 17.2 (10-20) Glucose 132 H (70-99) mg/dl Osmolality (280-300) mOsm/kg Calcium 7.9 L (8.5-10.1) mg/dl Total Bilirubin 0.3 (0.2-1) mg/dl Direct Bilirubin (0-0.2) mg/dl GGT AST 37 (15-37) U/L ALT 37 (12-78) U/L Alkaline Phosphatase 207 H (45-117) U/L Total Creatine Kinase Pending CK-MM (CK-3) Pending CK-MB (CK-2) Pending CK-BB (CK-1) Pending Creatine Kinase Interp Pending Troponin I 3.000 H* (0-0.045) ng/ml Total Protein 5.9 L (6.4-8.2) gm/dl Albumin 2.7 L (3.4-5.0) gm/dl Globulin 3.2 (2.5-4.0) gm/dl Albumin/Globulin Ratio 0.8 L (0.9-2) Urine Color Urine Appearance (Clear) Urine pH (4.5-7.5) Ur Specific [place] (1.000-1.030) Urine Protein (Negative) Urine Glucose (UA) (Negative) Urine Ketones (Negative) Urine Blood (Negative) Urine Nitrite (Negative) Urine Bilirubin (Negative) Urine Urobilinogen (Negative) Ur Leukocyte Esterase (Negative) Urine WBC (Auto) (0-5) /hpf Urine RBC (Auto) (0-4) /hpf U Hyaline Cast (Auto) (0-5) /lpf U Epithel Cells (Auto) (0-5) /lpf Urine Bacteria (Auto) (Negative) Urine Osmolality (500-800) mOsm/kg Ur Random Sodium mmol/L 05/03/18 05/03/18 05/02/18 Range/Units 02:03 02:03 22:59 WBC 6.25 (4.8-10.8) K/uL RBC 3.94 L (4.2-5.4) M/uL Hgb 11.8 L (12.0-16.0) g/dL Hct 36.2 L (37-47) % MCV 91.9 (80-100) fL MCH 29.9 (25-34) pg MCHC 32.6 (32-36) g/dL RDW Std Deviation 50.2 H (36.4-46.3) fL RDW Coeff of Zoran 14.7 H (11.5-14.5) % Plt Count 284 (130-400) K/uL MPV 9.4 (7.4-10.4) fL Immature Gran % (Auto) 0.5 % Neut % (Auto) 68.7 % Lymph % (Auto) 21.9 % [place] % (Auto) 8.2 % Eos % (Auto) 0.5 % Baso % (Auto) 0.2 % Immature Gran # (Auto) 0.03 H (0.00-0.02) K/uL Neut # (Auto) 4.30 (1.4-6.5) K/uL Lymph # (Auto) 1.37 (1.2-3.4) K/uL [place] # (Auto) 0.51 (0.11-0.59) K/uL Eos # (Auto) 0.03 (0-0.5) K/uL Baso # (Auto) 0.01 (0-0.2) K/uL PT 10.4 (9.0-12.0) Seconds INR 1.0 (0.9-1.1) APTT 56.9 H* (21.0-31.0) Seconds PTT Ratio 2.2 Sodium (136-145) mmol/L Potassium (3.5-5.1) mmol/L Chloride (98-107) mmol/L Carbon Dioxide (21-32) mmol/L Anion Gap (3-11) BUN (7-18) mg/dl Creatinine (0.6-1.2) mg/dl Est Cr Clr Drug Dosing ml/min Est GFR ( Amer) Est GFR (Non-Af Amer) BUN/Creatinine Ratio (10-20) Glucose (70-99) mg/dl Osmolality 289 (280-300) mOsm/kg Calcium (8.5-10.1) mg/dl Total Bilirubin (0.2-1) mg/dl Direct Bilirubin (0-0.2) mg/dl GGT AST (15-37) U/L ALT (12-78) U/L Alkaline Phosphatase (45-117) U/L Total Creatine Kinase CK-MM (CK-3) CK-MB (CK-2) CK-BB (CK-1) Creatine Kinase Interp Troponin I (0-0.045) ng/ml Total Protein (6.4-8.2) gm/dl Albumin (3.4-5.0) gm/dl Globulin (2.5-4.0) gm/dl Albumin/Globulin Ratio (0.9-2) Urine Color Urine Appearance (Clear) Urine pH (4.5-7.5) Ur Specific [place] (1.000-1.030) Urine Protein (Negative) Urine Glucose (UA) (Negative) Urine Ketones (Negative) Urine Blood (Negative) Urine Nitrite (Negative) Urine Bilirubin (Negative) Urine Urobilinogen (Negative) Ur Leukocyte Esterase (Negative) Urine WBC (Auto) (0-5) /hpf Urine RBC (Auto) (0-4) /hpf U Hyaline Cast (Auto) (0-5) /lpf U Epithel Cells (Auto) (0-5) /lpf Urine Bacteria (Auto) (Negative) Urine Osmolality (500-800) mOsm/kg Ur Random Sodium mmol/L 05/02/18 05/02/18 05/02/18 Range/Units 22:59 22:59 22:25 WBC (4.8-10.8) K/uL RBC (4.2-5.4) M/uL Hgb (12.0-16.0) g/dL Hct (37-47) % MCV (80-100) fL MCH (25-34) pg MCHC (32-36) g/dL RDW Std Deviation (36.4-46.3) fL RDW Coeff of Zoran (11.5-14.5) % Plt Count (130-400) K/uL MPV (7.4-10.4) fL Immature Gran % (Auto) % Neut % (Auto) % Lymph % (Auto) % [place] % (Auto) % Eos % (Auto) % Baso % (Auto) % Immature Gran # (Auto) (0.00-0.02) K/uL Neut # (Auto) (1.4-6.5) K/uL Lymph # (Auto) (1.2-3.4) K/uL [place] # (Auto) (0.11-0.59) K/uL Eos # (Auto) (0-0.5) K/uL Baso # (Auto) (0-0.2) K/uL PT (9.0-12.0) Seconds INR (0.9-1.1) APTT (21.0-31.0) Seconds PTT Ratio Sodium 134 L (136-145) mmol/L Potassium 4.1 (3.5-5.1) mmol/L Chloride 104 (98-107) mmol/L Carbon Dioxide 20 L (21-32) mmol/L Anion Gap 10.0 (3-11) BUN 32 H (7-18) mg/dl Creatinine 1.80 H (0.6-1.2) mg/dl Est Cr Clr Drug Dosing 26.2 ml/min Est GFR ( Amer) 32.0 Est GFR (Non-Af Amer) 27.6 BUN/Creatinine Ratio 17.7 (10-20) Glucose 141 H (70-99) mg/dl Osmolality (280-300) mOsm/kg Calcium 7.9 L (8.5-10.1) mg/dl Total Bilirubin 0.4 (0.2-1) mg/dl Direct Bilirubin 0.2 (0-0.2) mg/dl GGT Pending AST 36 (15-37) U/L ALT 35 (12-78) U/L Alkaline Phosphatase 214 H (45-117) U/L Total Creatine Kinase CK-MM (CK-3) CK-MB (CK-2) CK-BB (CK-1) Creatine Kinase Interp Troponin I 4.230 H* (0-0.045) ng/ml Total Protein 6.2 L (6.4-8.2) gm/dl Albumin 2.7 L (3.4-5.0) gm/dl Globulin (2.5-4.0) gm/dl Albumin/Globulin Ratio (0.9-2) Urine Color Yellow Urine Appearance Clear (Clear) Urine pH 5.0 (4.5-7.5) Ur Specific [place] 1.040 H (1.000-1.030) Urine Protein Trace H (Negative) Urine Glucose (UA) Negative (Negative) Urine Ketones Negative (Negative) Urine Blood 3+ H (Negative) Urine Nitrite Negative (Negative) Urine Bilirubin Negative (Negative) Urine Urobilinogen Negative (Negative) Ur Leukocyte Esterase Negative (Negative) Urine WBC (Auto) 5-10 H (0-5) /hpf Urine RBC (Auto) >30 H (0-4) /hpf U Hyaline Cast (Auto) 1-5 (0-5) /lpf U Epithel Cells (Auto) >30 H (0-5) /lpf Urine Bacteria (Auto) Negative (Negative) Urine Osmolality (500-800) mOsm/kg Ur Random Sodium mmol/L 05/02/18 05/02/18 Range/Units 22:25 22:25 WBC (4.8-10.8) K/uL RBC (4.2-5.4) M/uL Hgb (12.0-16.0) g/dL Hct (37-47) % MCV (80-100) fL MCH (25-34) pg MCHC (32-36) g/dL RDW Std Deviation (36.4-46.3) fL RDW Coeff of Zoran (11.5-14.5) % Plt Count (130-400) K/uL MPV (7.4-10.4) fL Immature Gran % (Auto) % Neut % (Auto) % Lymph % (Auto) % [place] % (Auto) % Eos % (Auto) % Baso % (Auto) % Immature Gran # (Auto) (0.00-0.02) K/uL Neut # (Auto) (1.4-6.5) K/uL Lymph # (Auto) (1.2-3.4) K/uL [place] # (Auto) (0.11-0.59) K/uL Eos # (Auto) (0-0.5) K/uL Baso # (Auto) (0-0.2) K/uL PT (9.0-12.0) Seconds INR (0.9-1.1) APTT (21.0-31.0) Seconds PTT Ratio Sodium (136-145) mmol/L Potassium (3.5-5.1) mmol/L Chloride (98-107) mmol/L Carbon Dioxide (21-32) mmol/L Anion Gap (3-11) BUN (7-18) mg/dl Creatinine (0.6-1.2) mg/dl Est Cr Clr Drug Dosing ml/min Est GFR ( Amer) Est GFR (Non-Af Amer) BUN/Creatinine Ratio (10-20) Glucose (70-99) mg/dl Osmolality (280-300) mOsm/kg Calcium (8.5-10.1) mg/dl Total Bilirubin (0.2-1) mg/dl Direct Bilirubin (0-0.2) mg/dl GGT AST (15-37) U/L ALT (12-78) U/L Alkaline Phosphatase (45-117) U/L Total Creatine Kinase CK-MM (CK-3) CK-MB (CK-2) CK-BB (CK-1) Creatine Kinase Interp Troponin I (0-0.045) ng/ml Total Protein (6.4-8.2) gm/dl Albumin (3.4-5.0) gm/dl Globulin (2.5-4.0) gm/dl Albumin/Globulin Ratio (0.9-2) Urine Color Urine Appearance (Clear) Urine pH (4.5-7.5) Ur Specific [place] (1.000-1.030) Urine Protein (Negative) Urine Glucose (UA) (Negative) Urine Ketones (Negative) Urine Blood (Negative) Urine Nitrite (Negative) Urine Bilirubin (Negative) Urine Urobilinogen (Negative) Ur Leukocyte Esterase (Negative) Urine WBC (Auto) (0-5) /hpf Urine RBC (Auto) (0-4) /hpf U Hyaline Cast (Auto) (0-5) /lpf U Epithel Cells (Auto) (0-5) /lpf Urine Bacteria (Auto) (Negative) Urine Osmolality 542 (500-800) mOsm/kg Ur Random Sodium 24 mmol/L _ (1) Syncope Encounter type: Syncope type: unspecified Qualified Code(s): R55 - Syncope and collapse (2) Acute lumbar back pain Back pain laterality: Sciatica laterality: Sciatica presence: (3) Hypotension Hypotension type: unspecified hypotension type Trimester: Qualified Code(s) : I95.9 - Hypotension, unspecified
--- NOTE | 2018-05-03 15:04 | Orthopedic Consultation ---
Date of Consultation May 03, 2018 Assessment & Plan (1) Lower back pain: No surgical intervention at this time. Recommend following low back/ stenosis symptoms until source of syncopal episodes are resolved. May consider ISA injections at that point. Recommend iv steroids and/or gabapentin 300mg bid for back pain and neuropathy if she can tolerate. We will continue to follow Mrs. Li during her stay. Present on Admission?: No Supervising Physician Co-Signing Physician Notes Dr. Manolo Manrique History of Present Illness Reason for Consultation: Low back pain secondary to syncopal episode Attending Physician: Sugey Leahy MD History of Present Illness Mrs. Li is a 73 y/o female who was admitted to [facility] 05/01/18 for a fall subsequent to a syncopal episode. She has a history of a lumbar fusion and stenosis and is currently being treated by Dr. Manrique. Upon consultation today she was sitting comfortably in bed. She is accompanied by her and daughter. She has mild to moderate complaints of low back pain, denies lower extremity weakness, has some tingling in both of her feet. She states that she was up with PT earlier today and felt lightheaded again thus concluding the session. She states that at that time she did not experience weakness in her lower extremities. Allergies Allergy/AdvReac Type Severity Reaction Status Date / Time amoxicillin Allergy Unknown HIVES Verified 05/01/18 22:32 Penicillins Allergy Unknown AMOXICILLIN Verified 05/01/18 22:32 -HIVES Sulfa (Sulfonamide Allergy Unknown HIVES Verified 05/01/18 22:32 Antibiotics) epinephrine AdvReac Unknown tachycardia Verified 05/01/18 22:32 Home Medications Home Medications Medication Instructions Recorded Confirmed Type aspirin, buffered 325 mg PO DAILY 05/01/18 05/01/18 History clarithromycin 1,000 mg PO UD 05/01/18 05/01/18 History hydrocodone-acetaminophen 1 tab PO Q6H PRN 05/01/18 05/01/18 History ibuprofen 200 - 400 mg PO TID PRN 05/01/18 05/01/18 History polyethylene glycol 3350 [Miralax] 17 g PO HS 05/01/18 05/01/18 History triamterene-hydrochlorothiazid 1 tab PO DAILY 05/01/18 05/01/18 History Patient History Medical History Pericardial effusion Prediabetes Lower back pain Paroxysmal atrial fibrillation Left bundle branch block CHERRI (acute kidney injury) Hyponatremia Elevated alkaline phosphatase level Elevated troponin Abdominal aortic aneurysm dissection Adnexal cyst (Acute) DJD (degenerative joint disease), lumbosacral (Chronic) HTN (hypertension) (Chronic) Non-occlusive coronary artery disease (Chronic) Vitamin B 12 deficiency (Chronic) Paroxysmal A-fib (Inactive) Surgical History Aortic valve replaced (2000) H/O thoracic aortic aneurysm repair (2015) S/P lumbar spinal arthrodesis S/P tubal ligation Status post aortic valve replacement with bioprosthetic valve (2016) History of fusion of lumbar spine (Inactive) Family History Other Diabetes mellitus Gout HTN (hypertension) Social History marital status: Current Living Situation: Spouse current occupational status: retired Other Information That Helps Us Care for You: Yes Feels Safe at Home: Yes Safety Concerns: Feels Safe At This Time Smoking Status: Former smoker Hx Alcohol Use: No Hx Substance Use: No Beliefs That Will Affect Care: None Communication Ability: Effective Review of Systems Constitutional: + weakness Cardiovascular: + orthopnea, + lightheadedness and + syncope Musculoskeletal: + back pain and + radicular pain Neurologic: + tingling and + syncope Physical Exam 2 Vital Signs (Past 24 Hours): Last Vital Signs Temp 36.8 C 05/03/18 12:00 Pulse 103 H 05/03/18 14:00 Resp 27 H 05/03/18 14:00 BP 100/69 05/03/18 14:00 Pulse Ox 95 05/03/18 14:00 Constitutional: WD/WN, vitals as above comfortable Cardiovascular: RRR, no murmur, no edema Rate/Rhythm: regular rate Extremities: normal capillary refill Musculoskeletal: Spine: + lumbar spinal tenderness Extremities: extremities normal to inspection and strength 5/5 throughout Neurologic: patellar DTR's 2+ bilat, sensation intact and PERRL, EOMI, accommodation nl, no face palsy, no dysarthria moves all extremities
[2018-05-03] MEDS: WARFARIN SOD 5 MG TAB PO SCH (16:16)
[2018-05-03] MEDS: HEPARIN SODIUM/DEXTROSE 25,000 UNITS/500 ML BAG IV SCH (20:30)
[2018-05-03] MEDS: POLYETHYLENE (MIRALAX) 17 GM PACK PO SCH (20:32)
[2018-05-04 06:57] LABS: Basophils # (auto) 0.02 K/uL (0-0.2); Basophils % (auto) 0.2 %; Eosinophils # (auto) 0.04 K/uL (0-0.5); Eosinophils % (auto) 0.5 %; Hematocrit (blood only) 39.4 % (37-47); Immature Granulocytes # (auto) 0.08 K/uL (0.00-0.02); Lymphocytes % (auto) 15.9 %; Mean Corpuscular Volume 90.8 fL (80-100); Mean Platelet Volume 9.9 fL (7.4-10.4); Monocytes # (auto) 0.61 K/uL (0.11-0.59); Monocytes % (auto) 7.4 %; Neutrophils # (auto) 6.15 K/uL (1.4-6.5); Platelet Count 371 K/uL (130-400); RDW Coefficient of Variation 14.4 % (11.5-14.5); RDW Standard Deviation 48.2 fL (36.4-46.3); Red Blood Count 4.34 M/uL (4.2-5.4)
[2018-05-04 07:26] LABS: BUN Creatinine Ratio 18.9 (10-20); Calcium 8.5 mg/dl (8.5-10.1); Creatinine Clr Calc Pharmacy 33.3 ml/min; Est GFR (African American) 40.2; Est GFR (Non-African American) 34.7; Magnesium 2.2 mg/dl (1.8-2.4); Potassium 3.8 mmol/L (3.5-5.1)
[2018-05-04 07:30] LABS: INR 1.1 (0.9-1.1); Partial Thromboplastin Ratio 2.3; Prothrombin Time 11.2 Seconds (9.0-12.0)
[2018-05-04 07:34] LABS: Partial Thromboplastin Time 60.1 Seconds (21.0-31.0)
[2018-05-04] MEDS: ASPIRIN 81 MG ECTAB PO SCH (08:32)
[2018-05-04] MEDS: LIDOCAINE 5% 1 PATCH TD SCH (08:32)
--- NOTE | 2018-05-04 09:28 | Critical Care Progress Note ---
ICU Progress Note Date of Service May 04, 2018 Vital Signs Vital Signs Temp Pulse Pulse Resp BP BP Pulse Ox 05/04/18 07:58 36.3 C L 107 H 16 116/75 94 05/04/18 03:05 36.6 C 109 H 20 114/74 96 05/04/18 01:22 36.9 C 69 18 120/60 97 05/03/18 23:45 36.6 C 71 18 111/55 L 93 05/03/18 23:39 36.4 C L 102 H 16 91/64 L 94 Physical exam: GENERAL : No acute distress MOUTH: No lesions or candidiasis NECK: Supple.No appreciation of stridor or carotid bruits LUNGS: CTA B/L, no wheezes, rales or rhonchi HEART: Regular, rate controlled EXTREMITIES: LE edema, pedal pulses intactBilaterally NEURO: A&OX3 LABS: Laboratory Tests 05/02/18 05/02/18 05/03/18 17:12 22:59 08:27 Troponin I 4.280 H* 4.230 H* 3.000 H* Notes Notes: Patient seen and examined at bedside in room 282 bed 2.Patient is up and sitting in a bedside chair.She states that she is weak but has no specific chest pain or shortness of breath. She is oxygenating well on room air.She does report that she sometimes has some tightness in her chest.She has been on a heparin drip and is now transitioning to oral warfarin.She reports that she was seen by Dr. Juarez this morning. Patient denies any nausea or vomiting. She has no diarrhea.She has no acute complaints other than generalized weakness.She does state that when she gets up to use the restroom in her room she feels lightheaded and dizzy.She has no imbalance and reports no falls.She denies any exertional chest pain or shortness of breath.She does have lower extremity edema but no calf pain. The patient has no other acute complaints and appears to be hemodynamically stable and review of her vital signs over the last 24 hours Consider outpatient follow up in 1 to 2 weeks with: Cardiology Repeat imaging needed: None Follow up cultures: None Reviewed progress notes, labs, and inpatient medication list Continue current management Additional recommendations: None The ICU team will sign off at this time.Please feel free to reconsult as needed
--- NOTE | 2018-05-04 10:29 | Cardiology Progress Note ---
Date of Service May 04, 2018 Assessment & Plan (1) Demand ischemia: Most likely supply/demand mismatch with demand ischemia rather than acute thrombotic event. Will check CK to further quantify any myocardial damage (this was inadvertently sent out as a reference lab yesterday, will add routine CK to her morning labs drawn already today). Continue aspirin. Had discussed statin in past, but with historically favorable lipid profile and limited CAD, she was reluctant to initiate a statin. Given subacute or chronic aortic dissection, should initiate statin for watermaster management, but reasonable to allow her to gain strength and start as outpatient (to avoid potential confounding variable with her back pain and weakness). (2) Elevated troponin: See above. (3) Abdominal aortic aneurysm dissection: Dr. Moreira he feels the dissection is likely chronic but that further anticoagulation with warfarin is warranted for 3 months. Patient now at suggested goal SBP in the 120 mm Hg range. (4) H/O thoracic aortic aneurysm repair: (5) Pericardial effusion: Of no clinical significance. (6) History of left bundle branch block (LBBB): (7) Paroxysmal atrial fibrillation: Remote post-op afib only. NSR currently. (8) Lower back pain: Likely lumbar radiculopathy is her source of symptoms. Dr. Manrique note appreciated, steroids and gabapentin recommended. She is debilitated and may need a rehab stay. Subjective 73-year-old woman well known to me from the outpatient setting with history of bioprosthetic aortic valve replacement with subsequent redo/aortic arch replacement (2015), chronic left bundle branch block since that time, and remote /transient PAF, who was admitted 05/01/18 after a syncopal episode. She has a h /o extensive lower back surgery and a intermittent sciatica, she had several weeks of back pain prior to admission and was found on CT of the abdomen and pelvis to have a aortic dissection which did not appear acute (uncertain whether subacute or chronic). She had no chest pain at any time and has no wall motion abnormalities on echocardiogram, but did have a troponin elevation into the 4 range (now declining). Uneventful night. She remains on heparin and warfarin was initiated with a plan to continue this for 3 months for her age indeterminate aortic dissection. Today, she remains fatigued and notes no change in her lower back pain while seated, this increases when she attempts to walk. She still feels weak and dizzy when she attempts to walk any distance. No chest pain, dyspnea at rest, or subjective palpitations. She states that her mild nonproductive cough has improved. No orthopnea or PND. No change in minor ankle edema. Fair to poor appetite for breakfast. She noted some diarrhea yesterday (had received MiraLax the night before) which resolved today. Aside from back pain, no complaints at rest. Constitutional: + fatigue, + malaise and + weakness Physical Exam 2 Vital Signs (Past 24 Hours): Last Vital Signs Temp 36.3 C L 05/04/18 07:58 Pulse 107 H 05/04/18 07:58 Resp 16 05/04/18 07:58 BP 116/75 05/04/18 07:58 Pulse Ox 94 05/04/18 07:58 Physical Exam: Vitals as above. She appears fatigued but not acutely distressed. Skin: no ecchymoses or generalized lesions. HEENT: unremarkable. Neck: Jugular venous pulse just above the clavicle at 90, no obvious carotid bruits. Lungs: Clear bilaterally. Cardiac: regular rhythm with 2/6 basal systolic ejection murmur and intact aortic closure sound, 2/6 apical holosystolic murmur radiating to the axilla.. Abdomen benign. Extremities: Trace pretibial edema, warm, good capillary refill. Neurologic: normal affect, nonfocal. Results & Data Laboratory Results Laboratory Tests 05/04/18 05/04/18 06:45 06:45 WBC 8.20 Hgb 13.0 BUN 28 H Creatinine 1.49 H
--- NOTE | 2018-05-04 10:54 | Communication Note ---
Date of Service: May 04, 2018 Pt's imaging appears to demonstrate chronic aortic dissection. Per Dr Moreira, pt will not require chronic anticoagulation for this as it does not appear acute. Please call if needed.
[2018-05-04] MEDS ORDERED: ACETAMINOPHEN 500 MG TAB PO PRN (15:36)
[2018-05-04] MEDS ORDERED: LIDOCAINE 5% 1 PATCH TD SCH (15:45)
[2018-05-04] MEDS: TRAMADOL HCL 50 MG TABLET PO PRN (16:28)
[2018-05-04] MEDS: WARFARIN SOD 5 MG TAB PO SCH (16:28)
--- NOTE | 2018-05-04 18:25 | Hospitalist Progress Note ---
Date of Service May 04, 2018 Assessment & Plan (1) Hypotension: Dalia Li is a 73 y.o female with history of bicuspid aortic valve s/p replacement and subsequent aortic root repair, history of lumbar spinal stenosis s/p fusion, lone atrial fibrillation, LBBB, and constipation admitted for further evaluation and management of acute syncopal episode. Low blood pressure secondary to poor p.o. intake in the setting of diuretic use and dehydration as an outpatient. Low blood pressures persisted upon admission as she was on a nicardipine drip initially which was then stopped. She was then given metoprolol on the morning of 05/03 for tachycardia in the setting of aortic dissection. Again, her blood pressures are too low to handle this and it was stopped BPs improved today, but remains lightheaded Hgb improved at 13, no blood loss, no signs of sepsis -check orthostatic vital signs -follow BPs (2) Syncope: Occurred during evening of 05/01/18 at home Occurred in the setting of poor p.o. intake due to severe lumbar back pain and radiculopathy over the previous 2 weeks, with continued diuretic use and likely was vasovagal in nature. CT angiogram did find a possibly chronic versus subacute abdominal aortic dissection, but this was not the cause of her syncope. Her hemoglobin is stable. She was hypotensive and tachycardic upon admission which is likely due to hypovolemia. She also had prerenal azotemia with an acute kidney injury consistent with dehydration in the setting of diuretic use and poor p.o. intake. EKG findings: sinus tachycardia, chronic left bundle branch block -Troponin elevated as addressed below-secondary to demand myocardial ischemia Echocardiogram without wall motion abnormalities (3) Abdominal aortic aneurysm dissection: Likely an incidental finding. The false lumen that is near the origin of the SMA does have flow and she has no evidence of bowel ischemia or abdominal pain. Vascular surgery has seen the patient and also does not feel that her acute kidney injury is secondary to her abdominal aortic dissection. -Keep blood pressure less than 120 systolic-currently her blood pressure is quite low-the nicardipine drip has since been discontinued, also could not tolerate metoprolol given for tachycardia -Tachycardia likely compensatory for hypotension and should resolve his hypotension resolves -Vascular surgery initially was recommending anticoagulation and was placed on heparin gtt and coumadin---> now dissection felt to be chronic -dc heparin gtt and coumadin -continue STEPH 81mg daily -Appreciate vascular surgery consultation-she will need follow-up with vascular surgery in their office in 3 months with an ultrasound of the aorta at that time (4) Elevated troponin: Type 2 RI in the setting of hypotension associated with hypovolemia Initially was 2.7, then 2.5, then back up to 4.2, now down to 3.0-cardiology thinks this is secondary to myocardial demand ischemia in the setting of hypotension and known nonobstructive coronary artery disease. Cardiac catheterization from 2016 showed 30% blockage in the LAD. -Echocardiogram here without wall motion abnormalities Prior to several weeks ago when her back pain started, she reports being very active and walking daily with no evidence of angina at any point. She continues to not have any chest pain. -Avoid hypotension-cannot tolerate beta-karel at this time -Continue aspirin -Appreciate cardiology consultation (5) Acute lumbar back pain: Started around April 05 after 2 days of heavy [place] shopping and carrying large bags around. She has a history of lumbar spinal fusion with instrumentation. She has been followed by orthopedic spine surgery very recently as an outpatient -took prednisone course which did nothing. She then was on ketorolac for 5 days which did help somewhat but then she stopped it. Then she was on hydrocodone which made her feel very poorly and then led to her syncopal episode prompting admission. She does have some radiculopathy down the right lower extremity I do not think her lower back pain symptoms are related to her abdominal dissection at all She also has an age indeterminant mild compression fracture of T12 which may also be contributing to her pain. -Continue pain control with Tylenol as needed, lidocaine patch -She is hesitant to take anything stronger but added on tramadol as needed -Appreciate orthopedic consultation-no surgical intervention at this time -PT/OT consults placed, may need rehab (6) Aortic valve replaced: History of valve replacement in 2011 for bicuspid aortic valve, valve is functioning well (7) H/O thoracic aortic aneurysm repair: History of aortic root replacement in 2016 (8) Elevated alkaline phosphatase level: Alkaline phosphatase elevated in the 200s which is new from previous. Possibly could be from vertebral compression fracture or lumbar spine issue? Slightly improved on repeat check -Check GGT to rule out alk phos from liver source and follow alkaline phosphatase levels-GGT pending -follow LFTs in AM (9) Hyponatremia: Was improved but now back down to 130. Initially may have been due to HCTZ use and dehydration, improved with holding diuretic. Now may be low due to volume overload--> developing LE edema, pleural effusions, abd distension, weight is up from previous -start lasix 20mg once daily in AM -Follow BMP -follow I/Os, daily weights (10) CHERRI (acute kidney injury): BUN/creatinine ratio on admission was greater than 20 indicating a prerenal azotemia possibly from dehydration in the setting of diuretic use as above Creatinine peaked at 1.8 and now improved to 1.49 -May also be secondary to some ATN from hypotension Baseline creatinine from 2017 was 1.1 -UA negative for granular casts -follow BMP -Avoiding hypotension as above (11) Left bundle branch block: Chronic secondary to previous cardiac surgery (12) Paroxysmal atrial fibrillation: History of what sounds like lone atrial fibrillation many years ago after her cardiac surgery, not requiring anticoagulation chronically at this time (13) Adnexal cyst: 3.7 cm left adnexal mass seen on CT incidentally -Needs nonurgent pelvic ultrasound and GUN[employer]ER follow-up as an outpatient-discussed with the patient and her daughter at the bedside (14) Prediabetes: Hemoglobin A1c here is elevated at 6.1% -No need for treatment at this time -Follow as an outpatient (15) Pericardial effusion: Trace to small pericardial effusion noted on echocardiogram, no evidence of tamponade -Cardiology notes that this is inconsequential and does not need to be followed (16) Edema: Worsening edema today, has been off her Dyazide -sodium elvels dropping could be due to ovlume overload -starting lasix as above -add ABHAY hose (17) Thyroid nodule: noted 3.6cm nodule in thyroid on CT chest TSH here normal at 0.99 -f/u as outpt (18) Microscopic hematuria: 3+ blood on UA, but could be [place] trauma -follow UA as outpt (19) Abdominal distension: Nontender, KUB ok. Could be from fluid retention as above -diuresing in the AM (20) DVT prophylaxis: Heparin drip, Coumadin-now discontinued -start Lovenox 40mg SQ qday Disposition-continue telemetry PT/OT evals pending Rehab referral to [place] made Subjective Pt still having lightheadedness today, poor appetite. Still with a lot of pain in her lower back with any movement. Tried to get up with PT today and reports she felt like she couldn't do much due to lightheadedness again. Denies CP or SOB, denies abd pain. She had some loose stools yesterday but no BM today, feels distended in her abdomen Discussed case with Vascular Surgery who now upon further review thinks her aortic dissection is chronic and does not require AC Tele with ST, low 100s Review of Systems All systems reviewed & are unremarkable except as noted in HPI & below Physical Exam 2 Vital Signs (Past 24 Hours): Last Vital Signs Temp 36.8 C 05/04/18 16:13 Pulse 105 H 05/04/18 16:13 Resp 17 05/04/18 16:13 BP 102/68 05/04/18 16:13 Pulse Ox 95 05/04/18 16:13 Constitutional: WD/WN, vitals as above Eyes: PERRL, conjunctivae normal, anicteric sclerae Neck: trachea midline, no thyromegaly Respiratory: normal respiratory effort, lungs clear to auscultation Cardiovascular: Rate/Rhythm: regular rhythm and + tachycardic (mild) Heart Sounds: + abnormal S2 (loud) and no murmur Extremities: + edema (1+ pitting edema legs to knees bilat) Gastrointestinal (Abdomen): normal bowel sounds, soft, nontender, no hepatosplenomegaly Musculoskeletal: Extremities: extremities normal to inspection; no cyanosis and no clubbing Skin: no rashes, warm and dry Neurologic: moves all extremities and awake; no focal motor deficits Psychiatric: A+Ox3, euthymic affect Results & Data Laboratory Results 05/04/18 05/04/18 05/04/18 Range/Units 06:45 06:45 06:45 WBC 8.20 (4.8-10.8) K/uL RBC 4.34 (4.2-5.4) M/uL Hgb 13.0 (12.0-16.0) g/dL Hct 39.4 (37-47) % MCV 90.8 (80-100) fL MCH 30.0 (25-34) pg MCHC 33.0 (32-36) g/dL RDW Std Deviation 48.2 H (36.4-46.3) fL RDW Coeff of Zoran 14.4 (11.5-14.5) % Plt Count 371 (130-400) K/uL MPV 9.9 (7.4-10.4) fL Immature Gran % (Auto) 1.0 % Neut % (Auto) 75.0 % Lymph % (Auto) 15.9 % [place] % (Auto) 7.4 % Eos % (Auto) 0.5 % Baso % (Auto) 0.2 % Immature Gran # (Auto) 0.08 H (0.00-0.02) K/uL Neut # (Auto) 6.15 (1.4-6.5) K/uL Lymph # (Auto) 1.30 (1.2-3.4) K/uL [place] # (Auto) 0.61 H (0.11-0.59) K/uL Eos # (Auto) 0.04 (0-0.5) K/uL Baso # (Auto) 0.02 (0-0.2) K/uL PT (9.0-12.0) Seconds INR (0.9-1.1) APTT (21.0-31.0) Seconds PTT Ratio Sodium 130 L (136-145) mmol/L Potassium 3.8 (3.5-5.1) mmol/L Chloride 99 (98-107) mmol/L Carbon Dioxide 19 L (21-32) mmol/L Anion Gap 12.0 H (3-11) BUN 28 H (7-18) mg/dl Creatinine 1.49 H (0.6-1.2) mg/dl Est Cr Clr Drug Dosing 33.3 ml/min Est GFR ( Amer) 40.2 Est GFR (Non-Af Amer) 34.7 BUN/Creatinine Ratio 18.9 (10-20) Glucose 133 H (70-99) mg/dl Calcium 8.5 (8.5-10.1) mg/dl Magnesium 2.2 (1.8-2.4) mg/dl GGT (3-65) U/L Total Creatine Kinase 113 (26-192) U/L Crossmatch 05/04/18 05/02/18 05/01/18 Range/Units 06:45 22:59 22:01 WBC (4.8-10.8) K/uL RBC (4.2-5.4) M/uL Hgb (12.0-16.0) g/dL Hct (37-47) % MCV (80-100) fL MCH (25-34) pg MCHC (32-36) g/dL RDW Std Deviation (36.4-46.3) fL RDW Coeff of Zoran (11.5-14.5) % Plt Count (130-400) K/uL MPV (7.4-10.4) fL Immature Gran % (Auto) % Neut % (Auto) % Lymph % (Auto) % [place] % (Auto) % Eos % (Auto) % Baso % (Auto) % Immature Gran # (Auto) (0.00-0.02) K/uL Neut # (Auto) (1.4-6.5) K/uL Lymph # (Auto) (1.2-3.4) K/uL [place] # (Auto) (0.11-0.59) K/uL Eos # (Auto) (0-0.5) K/uL Baso # (Auto) (0-0.2) K/uL PT 11.2 (9.0-12.0) Seconds INR 1.1 (0.9-1.1) APTT 60.1 H* (21.0-31.0) Seconds PTT Ratio 2.3 Sodium (136-145) mmol/L Potassium (3.5-5.1) mmol/L Chloride (98-107) mmol/L Carbon Dioxide (21-32) mmol/L Anion Gap (3-11) BUN (7-18) mg/dl Creatinine (0.6-1.2) mg/dl Est Cr Clr Drug Dosing ml/min Est GFR ( Amer) Est GFR (Non-Af Amer) BUN/Creatinine Ratio (10-20) Glucose (70-99) mg/dl Calcium (8.5-10.1) mg/dl Magnesium (1.8-2.4) mg/dl GGT 99 H (3-65) U/L Total Creatine Kinase (26-192) U/L Crossmatch See Detail Diagnostic Findings KUB personally reviewed by me and agree with the following report: KUB CLINICAL HISTORY: Abdominal distention. FINDINGS: 2 AP, portable, supine abdominal radiographs are correlated with abdominal CT dated 05/02/2018. There is a nonobstructed abdominal bowel gas pattern. No evidence of intraperitoneal free air is seen on these supine images. Fecal retention is noted in the right colon. There are no abnormal abdominal calcifications. Cardiomegaly and midline sternotomy wires are noted at the lung bases. There are bilateral pleural effusions, left larger than right. The skeletal structures are osteopenic. Fusion hardware is noted in the lower lumbar spine. IMPRESSION: 1. Nonobstructed abdominal bowel gas pattern. 2. Cardiomegaly and small pleural effusions. _ (1) Syncope Encounter type: Syncope type: unspecified Qualified Code(s): R55 - Syncope and collapse (2) Acute lumbar back pain Back pain laterality: Sciatica laterality: Sciatica presence: (3) Hypotension Hypotension type: unspecified hypotension type Trimester: Qualified Code(s) : I95.9 - Hypotension, unspecified
[2018-05-04] MEDS ORDERED: ENOXAPARIN INJ 40 MG/0.4 ML SYR SQ ONE (19:59)
--- NOTE | 2018-05-04 21:49 | XRay Report ---
KUB CLINICAL HISTORY: Abdominal distention. FINDINGS: 2 AP, portable, supine abdominal radiographs are correlated with abdominal CT dated 05/02/19 19. There is a nonobstructed abdominal bowel gas pattern. No evidence of intraperitoneal free air is seen on these supine images. Fecal retention is noted in the right colon. There are no abnormal abdom inal calcifications. Cardiomegaly and midline sternotomy wires are noted at the lung bases. There are bilateral pleural effusions, left larger than right. The skeletal structures are osteopenic. Fusion hardware is noted in the lower lumbar spine. IMPRESSION: 1. Nonobstructed abdominal bowel gas pattern. 2. Cardiomegaly and small pleural effusions. Electronically signed by: Edwin Sheridan M.D. 05/04/2018 9:47 PM
[2018-05-04] MEDS: HEPARIN SODIUM/DEXTROSE 25,000 UNITS/500 ML BAG IV SCH (23:08)
[2018-05-05] MEDS: TRAMADOL HCL 50 MG TABLET PO PRN ×2 (00:23→12:40)
[2018-05-05 06:44] LABS: Basophils # (auto) 0.02 K/uL (0-0.2); Basophils % (auto) 0.3 %; Eosinophils # (auto) 0.07 K/uL (0-0.5); Eosinophils % (auto) 0.9 %; Hemoglobin 12.3 g/dL (12.0-16.0); Immature Granulocytes # (auto) 0.07 K/uL (0.00-0.02); Immature Granulocytes % (auto) 0.9 %; Lymphocytes # (auto) 1.43 K/uL (1.2-3.4); Lymphocytes % (auto) 18.8 %; Mean Corpuscular Hgb Conc 33.2 g/dL (32-36); Mean Corpuscular Volume 89.8 fL (80-100); Mean Platelet Volume 10.1 fL (7.4-10.4); Monocytes # (auto) 0.62 K/uL (0.11-0.59); Monocytes % (auto) 8.1 %; Neutrophils # (auto) 5.41 K/uL (1.4-6.5); Platelet Count 404 K/uL (130-400); RDW Coefficient of Variation 14.4 % (11.5-14.5); RDW Standard Deviation 47.2 fL (36.4-46.3); Red Blood Count 4.12 M/uL (4.2-5.4); White Blood Count 7.62 K/uL (4.8-10.8)
[2018-05-05 06:56] LABS: Albumin Level 2.8 gm/dl (3.4-5.0); BUN Creatinine Ratio 21.7 (10-20); Bilirubin Direct 0.1 mg/dl (0-0.2); Calcium 8.3 mg/dl (8.5-10.1); Est GFR (African American) 51.8; Est GFR (Non-African American) 44.7; Potassium 3.8 mmol/L (3.5-5.1)
[2018-05-05 06:59] LABS: Bilirubin,Total 0.4 mg/dl (0.2-1); Total Protein 6.3 gm/dl (6.4-8.2)
[2018-05-05] MEDS: FUROSEMIDE 20 MG TAB PO SCH (08:47)
[2018-05-05] MEDS: ASPIRIN 81 MG ECTAB PO SCH (08:47)
[2018-05-05] MEDS: LIDOCAINE 5% 1 PATCH TD SCH (08:48)
[2018-05-05] MEDS ORDERED: HYDROCODONE/ACETAMOPHEN 5/325MG TAB PO PRN (14:49)
[2018-05-05 15:36] LABS: BUN Creatinine Ratio 22.3 (10-20); Calcium 8.3 mg/dl (8.5-10.1); Creatinine Clr Calc Pharmacy 42.6 ml/min; Est GFR (African American) 53.9; Est GFR (Non-African American) 46.5; Potassium 3.9 mmol/L (3.5-5.1); Uric Acid 6.7 mg/dl (2.6-7.2)
[2018-05-05] MEDS ORDERED: POTASSIUM CHLORIDE 20 MEQ TABCR PO STA (16:15)
[2018-05-05] MEDS ORDERED: FUROSEMIDE 20 MG in SYRINGE 0 ML IV ONE (16:30)
--- NOTE | 2018-05-05 16:30 | Ultrasound Report ---
BILATERAL LOWER EXTREMITY VENOUS DOPPLER CLINICAL HISTORY: severe edema; eval for DVT COMPARISON STUDY: Bilateral lower extremity venous Doppler September 10, 2015. TECHNIQUE: Sonography of the deep venous system of the bilateral lower extremities was performed. Co mpression and augmentation were evaluated. FINDINGS: The bilateral common femoral, superficial femoral and popliteal veins were compressible. A ugmentation was normal. Flow was shown within the deep calf vessels. Bilateral lower extremity edema was noted. IMPRESSION: No evidence of deep venous thrombus within the bilateral lower extremities. Electronically signed by: Filippo Roque M.D. 05/05/2018 4:29 PM
--- NOTE | 2018-05-05 16:48 | XRay Report ---
XR chest 2V routine CLINICAL HISTORY: ?CHF COMPARISON STUDY: Chest CT May 02, 2018. FINDINGS: There are median sternotomy wires and a prosthetic aortic valve. Cardiomegaly is unchanged. There is no pneumothorax. Moderate left and small right pleural effusions have increased in size sin ce exam of May 02, 2018. There is no radiographic evidence of pulmonary edema. IMPRESSION: 1. Increase in size of moderate left and small right pleural effusions. 2. No radiographic evidence of pulmonary edema. Electronically signed by: Filippo Roque M.D. 05/05/2018 4:47 PM
--- NOTE | 2018-05-05 18:40 | Hospitalist Progress Note ---
Date of Service May 05, 2018 Assessment & Plan (1) Dizziness: she is not orthostatic on orthostatics today. cortisol level checked - normal. no true vertigo. suspect it is related to her low or low-normal BP. alternatively could be related to her hyponatremia but felt to be less likely. she is preload dependent due to the presence of her cor pulmonale and thus will need to avoid intravascular volume depletion. recent echo without valvular heart disease that would explain her dizziness. I reviewed the pt's CTA chest with radiology today - no obvious PEs, but subsegmental arteries could not be seen very well. Present on Admission?: Yes (2) Hyponatremia: I believe she is solute depleted in the setting of a total body volume overloaded state. Her urine sodium is not consistent with an SIADH state. She was taking HCTZ prior to admission and thus her total body sodium stores are likely low-normal. Recheck BMP this afternoon and then again in the am. (3) Acute on chronic right-sided congestive heart failure: echo this admission with new-onset cor pulmonale/right-sided heart failure. 2016 echo with preserved RV function. etiology of RV failure?? chronic VTE? other? she is 20-25 pounds volume overloaded at this time. will give additional dose of IV lasix 20mg x 1 this afternoon. I have asked Dr. Stout from cardiology to see her again in the am. I believe her tachycardia is due to her CHF. TSH, H/H are stable. She is having pain but I don't believe that is the truss driver helper of her tachycardia. (4) Lumbar spinal stenosis: severe, with right leg radicular symptoms. try norco 1/2 tab prn. k-pad heat ordered. lidocaine patches. spoke with Dr. Manrique who will see the patient tomorrow. (5) Abdominal aortic aneurysm dissection: seen by vascular this admission - felt that this is chronic in nature. no Rx needed and no anticoagulation at this time. (6) CHERRI (acute kidney injury): resolved. (7) Prediabetes: controlled (8) Edema: severe. LE venous dopplers today neg for DVT. albumin is only mildly low; not low enough to explain the edema. suspect edema is due to right-sided heart failure. gentle diuresis. (9) DVT prophylaxis: lovenox (10) Elevated troponin: seen by her primary material man earlier this admission. felt to have myocardial demand ischemia rather than ACS. (11) Aortic valve replaced: bioprosthetic. valve function normal on recent echo. (12) H/O thoracic aortic aneurysm repair: noted. recent CTA stable. (13) Constipation: cont bowel regimen daughter updated at bedside cont PT, OT total time spent today including speaking with 2 consultants, reviewing old records, ordering tests, etc -- 80 minutes Subjective patient with multiple complaints during the visit. they include - 1. dizziness/lightheadedness with standing. No vertigo. Had this complaint upon admission. Has not improved. 2. back pain - ongoing, no improvement; radiation of pain into the right buttock. 3. shortness of breath, even at rest, but worse with activity. 4. peripheral edema and abdominal swelling. worse. baseline weight is about 145 pounds. 5. constipation. daughter was at bedside; expresses various concerns - most of which are similar to the patient. tele with sinus tach only. Constitutional: + fatigue and + weight gain; no fever, no chills and no increased appetite Respiratory: no cough Cardiovascular: no chest pain Gastrointestinal: no abdominal pain and no vomiting Physical Exam 2 Vital Signs (Past 24 Hours): Last Vital Signs Temp 36.5 C 05/05/18 14:49 Pulse 108 H 05/05/18 17:00 Resp 20 05/05/18 14:49 BP 103/71 05/05/18 14:49 Pulse Ox 93 05/05/18 14:49 Constitutional: well developed, well nourished and average body habitus; no acute distress ENMT: external ear and nose normal, oropharynx normal Respiratory: Auscultation: + diminished lung sounds (bases); no rales, no rhonchi and no wheezes Cardiovascular: Rate/Rhythm: regular rhythm and + tachycardic; + abnormal rate Heart Sounds: normal S1 and normal S2; no murmur Vessels: posterior tibial pulses present and dorsalis pedis pulses present; no JVD Extremities: + pedal edema (2-3+ b/l ) Gastrointestinal (Abdomen): Inspection/Auscultation: + abdomen distended ( with probable fluid) and normal bowel sounds Percussion/Palpation: abdomen nontender and no hepatosplenomegaly Musculoskeletal: no tenderness to palpation over the t-spine or l-spine spinous processes; mild tenderness over paraspinal region on right side to palpation Neurologic: patellar reflexes 2+ b/l; achilles 0 on right; 2+ on left; strength 3-4/5 right hip flexion; strength 5/5 left leg; strength 5/5 right foot dorsiflexion/plantarflexion Psychiatric: A+Ox3, euthymic affect Results & Data Laboratory Results Laboratory Results - last 24 hr 05/01/18 05/05/18 05/05/18 22:01 06:05 06:05 WBC 7.62 RBC 4.12 L Hgb 12.3 Hct 37.0 MCV 89.8 MCH 29.9 MCHC 33.2 RDW Std Deviation 47.2 H RDW Coeff of [place] 14.4 Plt Count 404 H MPV 10.1 Immature Gran % (Auto) 0.9 Neut % (Auto) 71.0 Lymph % (Auto) 18.8 [place] % (Auto) 8.1 Eos % (Auto) 0.9 Baso % (Auto) 0.3 Immature Gran # (Auto) 0.07 H Neut # (Auto) 5.41 Lymph # (Auto) 1.43 [place] # (Auto) 0.62 H Eos # (Auto) 0.07 Baso # (Auto) 0.02 Sodium 126 L Potassium 3.8 Chloride 95 L Carbon Dioxide 19 L Anion Gap 12.0 H BUN 26 H Creatinine 1.21 H Est Cr Clr Drug Dosing 41.0 Est GFR ( Amer) 51.8 Est GFR (Non-Af Amer) 44.7 BUN/Creatinine Ratio 21.7 H Glucose 126 H Osmolality Uric Acid Calcium 8.3 L Total Bilirubin 0.4 Direct Bilirubin 0.1 AST 14 L ALT 30 Alkaline Phosphatase 215 H Total Protein 6.3 L Albumin 2.8 L Random Cortisol Urine Osmolality Ur Random Sodium Crossmatch See Detail 05/05/18 05/05/18 05/05/18 09:12 15:06 15:06 WBC RBC Hgb Hct MCV MCH MCHC RDW Std Deviation RDW Coeff of [place]or[place] Plt Count MPV Immature Gran % (Auto) Neut % (Auto) Lymph % (Auto) [place] % (Auto) Eos % (Auto) Baso % (Auto) Immature Gran # (Auto) Neut # (Auto) Lymph # (Auto) [place] # (Auto) Eos # (Auto) Baso # (Auto) Sodium 125 L Potassium 3.9 Chloride 95 L Carbon Dioxide 21 Anion Gap 9.0 BUN 26 H Creatinine 1.17 Est Cr Clr Drug Dosing 42.6 Est GFR ( Amer) 53.9 Est GFR (Non-Af Amer) 46.5 BUN/Creatinine Ratio 22.3 H Glucose 120 H Osmolality 271 L Uric Acid 6.7 Calcium 8.3 L Total Bilirubin Direct Bilirubin AST ALT Alkaline Phosphatase Total Protein Albumin Random Cortisol 20.07 Urine Osmolality Ur Random Sodium Crossmatch 05/05/18 05/05/18 Unknown Unknown WBC RBC Hgb Hct MCV MCH MCHC RDW Std Deviation RDW Coeff of [place]oran Plt Count MPV Immature Gran % (Auto) Neut % (Auto) Lymph % (Auto) [place] % (Auto) Eos % (Auto) Baso % (Auto) Immature Gran # (Auto) Neut # (Auto) Lymph # (Auto) [place] # (Auto) Eos # (Auto) Baso # (Auto) Sodium Potassium Chloride Carbon Dioxide Anion Gap BUN Creatinine Est Cr Clr Drug Dosing Est GFR ( Amer) Est GFR (Non-Af Amer) BUN/Creatinine Ratio Glucose Osmolality Uric Acid Calcium Total Bilirubin Direct Bilirubin AST ALT Alkaline Phosphatase Total Protein Albumin Random Cortisol Urine Osmolality 466 L Ur Random Sodium 37 Crossmatch _ (1) Lumbar spinal stenosis Neurogenic claudication status: unspecified Qualified Code(s): M48.061 - Spinal stenosis, lumbar region without neurogenic claudication (2) Edema Edema type: unspecified Qualified Code(s): R60.9 - Edema, unspecified (3) Constipation Constipation type: other constipation type Qualified Code(s): K59.09 - Other constipation
[2018-05-05] MEDS: ENOXAPARIN INJ 40 MG/0.4 ML SYR SQ SCH (20:35)
[2018-05-05] MEDS: POLYETHYLENE (MIRALAX) 17 GM PACK PO PRN (20:35)
[2018-05-06 06:26] LABS: BUN Creatinine Ratio 23.3 (10-20); Calcium 8.3 mg/dl (8.5-10.1); Creatinine Clr Calc Pharmacy 48.9 ml/min; Est GFR (African American) 63.6; Est GFR (Non-African American) 54.9
[2018-05-06] MEDS: FUROSEMIDE 20 MG TAB PO SCH (08:29)
[2018-05-06] MEDS: ASPIRIN 81 MG ECTAB PO SCH (08:29)
[2018-05-06] MEDS: LIDOCAINE 5% 1 PATCH TD SCH (08:29)
[2018-05-06] MEDS: POTASSIUM CHLORIDE 20 MEQ TABCR PO SCH ×2 (10:25→21:54)
[2018-05-06] MEDS: FUROSEMIDE 20 MG in SYRINGE 0 ML IV SCH ×2 (10:25→17:25)
--- NOTE | 2018-05-06 11:28 | Cardiology Progress Note ---
Date of Service May 06, 2018 She is very frustrated this morning. She short of breath lying flat. She does feel slightly better sitting up but appears short of breath speaking in sentences. Denies any palpitations or fluttering. She does have some very mild lightheadedness. She does note some mild chest discomfort when she lays flat it is better when she sits up. She has noted increased abdominal distention she also has fluid in her thighs and extensive edema in her lower extremities below the knee. She seems depressed and frustrated in addition to her heart failure symptoms but with regards to her back discomfort as well. She notes with diuretic she has to get up and go to the bathroom more often which exacerbates her back pain. The rest of a complete review of systems otherwise negative Physical Exam 2 Vital Signs (Past 24 Hours): Last Vital Signs Temp 36.4 C L 05/06/18 07:35 Pulse 100 H 05/06/18 08:00 Resp 20 05/06/18 07:35 BP 98/62 L 05/06/18 07:35 Pulse Ox 93 05/06/18 07:35 She is awake alert oriented x3 she appears short of breath talking in sentences. HEENT: 2+ carotid upstrokes no evidence of carotid bruits. jugular venous pressure is Significantly elevated. her sclera was anicteric her hearing is normal lungs decreased breath sounds in the bases greater on the right compared to the left no rales rhonchi or wheezing heart regular rate and rhythm (tachycardic there is a soft holosystolic murmur at the left sternal border Abdomen soft nontender, distended, positive bowel sounds Extremities Marked edema to the thighs bilaterally Psychiatric she is tearful and depressed neurologic she is awake alert and oriented x3 (1) Demand ischemia and CHF as cause Elevated troponin: (2) Significant right-sided heart failure. I personally reviewed her echocardiogram today her right heart is dilated the RV free wall is significantly hypokinetic in addition there is an abnormal septal bounce. Her E prime velocities are low which would go against pericardial constriction. Her IVC is dilated and does not collapse consistent with right atrial pressures of at least 15 mmHg. In discussion with Dr. Bowen we will add Aldactone 12-1/2 mg daily with the idea as long as her blood pressure is reasonably stable we will try to uptitrated to 25 mg daily. She will remain on IV furosemide. Unfortunately she is hyponatremic and has a borderline low blood pressure. We will have to slowly diurese her as she is significantly dependent given her RV dysfunction. (3) Abdominal aortic aneurysm dissection: Dr. Moreira he feels the dissection is likely chronic but that further anticoagulation with warfarin is warranted for 3 months. 3B bioprosthetic AVR (4) H/O thoracic aortic aneurysm repair: (5) Pericardial effusion: Of no clinical significance. (6) History of left bundle branch block (LBBB): (7) Paroxysmal atrial fibrillation: Remote post-op afib only. NSR currently. (8) Lower back pain: Discussed with orthopedic surgery. They will consult pain management. Given the extent of her RV dysfunction and right-sided heart failure she is not a candidate for surgery at this point. Unfortunately her for heart failure symptoms are likely exacerbated by the use of Toradol as an outpatient. She likely has sodium and therefore and fluid retention related to Toradol which is caused her to have marked anasarca. Hopefully we can unload her right ventricle some of her RV function will improve. [facility] physician group cardiology return tomorrow next Is spent well over an hour discussing her case with the patient the internal medicine service, orthopedic surgery, and in reviewing her studies.
--- NOTE | 2018-05-06 12:16 | Consultation Report ---
DATE OF CONSULTATION: 05/02/2018 CHIEF COMPLAINT: From an orthopedic spinal standpoint of back pain, lower extremity, difficulty, claudication. HISTORY OF PRESENT ILLNESS: Dalia is delightful. I know her from the office. She was admitted for assortment of issues medically few days ago, becoming stabilized. She was actually in intensive care, back out on intensive care, now has significant back and lower extremity difficulty which she has had, is interested in some form of treatment for her. PAST MEDICAL HISTORY: Significant for hyponatremia, heart failure, tachycardia, severe stenosis. She does have an aortic aneurysm. PAST SURGICAL HISTORY: Significant for an aortic valve replacement and significant spinal stenosis surgery. REVIEW OF SYSTEMS: She denies any fevers, sweats, chills, or incontinence of bowel and bladder. She does have back pain, lower extremity difficulty subjectively. PHYSICAL EXAMINATION: Demonstrates decreased range of motion, pain with percussion, slight loss of strength, slight loss of sensation. I think it is chronic based on a multitude of factors. IMAGING DATA: Plain x-rays of the lumbar spine demonstrate appropriate positioning of implants from prior surgery. CT scan is suggestive of fairly severe stenosis at L3-L4 lumbar spine. IMPRESSION: From an orthopedic standpoint, she has severe spinal stenosis of spine at L3-L4 on top of a prior fusion. PLAN: This is a surgical entity if indeed she was medically stable. I think the priorities now already get her stabilized, may be a rehab type placement and then consider surgical intervention, it is still a long shot, I would not be anxious to operate on our patient here today. I will put an order in for pain management hopefully, maybe here in the hospital and give her some injections, possibly as an outpatient.
[2018-05-06] MEDS ORDERED: SPIRONOLACTONE 25 MG TAB PO ONE (13:49)
[2018-05-06] MEDS: TRIAMCINOLONE ACET NASAL SPRAY 10.8ML BTL NAE SCH (17:25)
--- NOTE | 2018-05-06 20:45 | Hospitalist Progress Note ---
Date of Service May 06, 2018 Assessment & Plan (1) Acute on chronic right-sided congestive heart failure: echo this admission with new-onset cor pulmonale/right-sided heart failure. 2016 echo with preserved RV function. etiology of RV failure uncertain. No evidence of PE on recent CTA chest; no DVTs on b/l LE dopplers. No MARK by history. No significant lung disease history. Cont lasix 20mg IV BID. Adding aldactone 12.5mg daily as recommended by Dr. Stout. Ultimately needs low-dose BB. Appreciate cardiology consultation. Need to be slow & cautious with diuresis to avoid CHERRI, low BP, etc. (2) Dizziness: improved. suspect it is due to low BP in setting of RV failure. cortisol was normal. orthostatics were normal. hyponatremia could have been contributing. (3) Hyponatremia: Improved with diuresis. Recheck BMP in am. (4) Lumbar spinal stenosis: severe, with right leg radicular symptoms. cont norco, heat, lidoderm, etc appreciate Dr. Manrique's consultation and recs. (5) Abdominal aortic aneurysm dissection: seen by vascular this admission - felt that this is chronic in nature. no Rx needed and no anticoagulation at this time. (6) CHERRI (acute kidney injury): resolved. (7) Prediabetes: controlled (8) Edema: due to right-sided CHF. TSH, albumin acceptable. no DVTs present. (9) DVT prophylaxis: lovenox (10) Elevated troponin: due to myocardial demand ischemia rather than true ACS. (11) Aortic valve replaced: bioprosthetic. valve function normal on recent echo. (12) H/O thoracic aortic aneurysm repair: noted. recent CTA stable. (13) Constipation: cont bowel regimen cont PT, OT (14) Nasal congestion: nasocort daily. zyrtec 10mg HS. Subjective feels better today back pain/right leg pain not as severe still with mild cough and dyspnea along with orthopnea appetite improved not as dizzy today either Constitutional: no fever Respiratory: + dyspnea on exertion Cardiovascular: no chest pain Gastrointestinal: + constipation; no abdominal pain Physical Exam 2 Vital Signs (Past 24 Hours): Last Vital Signs Temp 36.8 C 05/06/18 20:00 Pulse 104 H 05/06/18 20:00 Resp 24 05/06/18 20:00 BP 95/60 L 01/20/19 20:00 Pulse Ox 94 05/06/18 20:00 Constitutional: well developed and well nourished; no acute distress ENMT: external ear and nose normal, oropharynx normal Respiratory: Auscultation: + diminished lung sounds (bases); no rales and no wheezes Cardiovascular: Rate/Rhythm: regular rhythm and + tachycardic Heart Sounds : normal S1 and normal S2; no murmur Vessels: + JVD, posterior tibial pulses present and dorsalis pedis pulses present Extremities: + edema (3+ to the knees) Gastrointestinal (Abdomen): normal bowel sounds, soft, nontender, no hepatosplenomegaly probable ascites or body wall edema Psychiatric: A+Ox3, euthymic affect Results & Data Laboratory Results Laboratory Results - last 24 hr 05/06/18 05:29 Sodium 128 L Potassium 4.0 Chloride 96 L Carbon Dioxide 24 Anion Gap 8.0 BUN 24 H Creatinine 1.02 Est Cr Clr Drug Dosing 48.9 Est GFR ( Amer) 63.6 Est GFR (Non-Af Amer) 54.9 BUN/Creatinine Ratio 23.3 H Glucose 112 H Calcium 8.3 L _ (1) Lumbar spinal stenosis Neurogenic claudication status: unspecified Qualified Code(s): M48.061 - Spinal stenosis, lumbar region without neurogenic claudication (2) Edema Edema type: unspecified Malnutrition edema type: Trimester: Qualified Code(s): R60.9 - Edema, unspecified (3) Constipation Constipation type: other constipation type Qualified Code(s): K59.09 - Other constipation
[2018-05-06] MEDS: CETIRIZINE HCL 10 MG TABLET PO SCH (21:54)
[2018-05-06] MEDS: ENOXAPARIN INJ 40 MG/0.4 ML SYR SQ SCH (21:54)
[2018-05-06] MEDS: POLYETHYLENE (MIRALAX) 17 GM PACK PO PRN (22:01)
[2018-05-07 05:42] LABS: CK Total 113 U/L (29-143); CK-MB 0 % (<5); CK-MM 100 % (95-100)
[2018-05-07 06:56] LABS: Calcium 8.2 mg/dl (8.5-10.1); Creatinine Clr Calc Pharmacy 43.4 ml/min; Est GFR (African American) 56.2; Est GFR (Non-African American) 48.5; Magnesium 1.9 mg/dl (1.8-2.4)
--- NOTE | 2018-05-07 08:08 | Hospitalist Progress Note ---
Date of Service May 07, 2018 Assessment & Plan (1) Acute on chronic right-sided congestive heart failure: echo this admission with new-onset cor pulmonale/right-sided heart failure. 2016 echo with preserved RV function. etiology of RV failure uncertain. No evidence of PE on recent CTA chest; no DVTs on b/l LE dopplers. No MARK by history. No significant lung disease history. diuretics with lasix 20mg IV BID, and aldactone 12.5mg daily Followed by Dr. Stout. Need to be slow & cautious with diuresis to avoid CHERRI, low BP, etc. (2) Dizziness: Improved, due to low BP in setting of RV failure. cortisol and orthostatics normal. (3) Hyponatremia: Improved, follow. (4) Lumbar spinal stenosis: severe, continues with right leg radicular symptoms. symptoms relief with norco, heat, lidoderm Dr. Manrique's is following he feels surgical intervention will be risk at this time we will try scheduled Tylenol considering dexamethasone, adding Neurontin (5) Abdominal aortic aneurysm dissection: seen by vascular this admission - felt that this is chronic in nature. no Rx needed and no anticoagulation at this time. (6) CHERRI (acute kidney injury): resolved with hydration (7) Prediabetes: controlled (8) Edema: due to right-sided reduced systolic function, acute right sided systolic heart failure TSH, albumin acceptable. no DVTs present. (9) DVT prophylaxis: lovenox (10) Elevated troponin: due to myocardial demand ischemia rather than true ACS is not a non stemi. (11) Aortic valve replaced: bioprosthetic. valve function normal on recent echo. (12) H/O thoracic aortic aneurysm repair: noted. recent CTA shows this area is stabe (13) Constipation: remains on bowel regimen has some frequent bowel movement adding Metamucil cont PT, OT (14) Nasal congestion: nasocort daily. zyrtec 10mg HS. Subjective Patient has multiple somatic complaints today now mostly centered on her back pain which was her initial presenting complaint, depression from her multiple medical comorbidities, and the diarrhea that she is began having since she arrived. Patient notes she does have problems with her bowel movements and constipation is frequent for her. She says after having doses of MiraLAX here in the hospital she began having persistent diarrhea. A C. difficile is pending at this time Regarding her back pain she says it is a deep dull ache does radiate slightly down her buttocks on the right side somewhat reminiscent of her previous back pain which was remedied with surgery 2014. Patient has seen 's after as an outpatient and he feels surgery is at high risk at this time Review of Systems ROS: well nourished well developed. She feels depressed No double vision blurry vision No problems with speech or swallowing No palpitations, chest pain or pressure No Wheezing or breathing issues No abdominal pain nausea vomiting but frequent watery diarrhea No burning urine urine frequency or changes in color No focal joint pain or muscle pain persistent low back pain rating to her right buttocks No skin rashes or oral lesions No unusual bruising or bleeding No numbness or loss of strength No changes in memory or confusion Physical Exam 2 Vital Signs (Past 24 Hours): Last Vital Signs Temp 37.3 C 05/07/18 07:33 Pulse 97 H 05/07/18 07:33 Resp 20 05/07/18 07:33 BP 98/62 L 05/07/18 07:33 Pulse Ox 96 05/07/18 07:33 The patient appeared well nourished and normally developed. She appears depressed or sad and Vital signs as documented. Head exam is unremarkable. Neck is without jugular venous distension, thyromegaly, or lymphademopathy Lungs are clear to auscultation and percussion. Cardiac exam reveals Rhythm is regular. First and second heart sounds normal. Systolic murmur Abdominal exam reveals normal bowel sounds, no masses, no organomegaly Extremities are moderately edematous and both pedal pulses are normal. Neurologic exam is A&Ox3, no focal deficits, strength is equal bilateral Skin is warm Dry without bruises or lesions _ (1) Lumbar spinal stenosis Neurogenic claudication status: unspecified Qualified Code(s): M48.061 - Spinal stenosis, lumbar region without neurogenic claudication (2) Edema Edema type: unspecified Malnutrition edema type: Trimester: Qualified Code(s): R60.9 - Edema, unspecified (3) Constipation Constipation type: other constipation type Qualified Code(s): K59.09 - Other constipation
[2018-05-07] MEDS ORDERED: HYDROCODONE/ACETAMOPHEN 5/325MG TAB PO PRN (08:11)
[2018-05-07] MEDS ORDERED: OXYCODONE HCL IR 5 MG TAB (IMMEDIATE RELEASE) PO PRN (08:36)
[2018-05-07] MEDS: TRIAMCINOLONE ACET NASAL SPRAY 10.8ML BTL NAE SCH (08:41)
[2018-05-07] MEDS: ASPIRIN 81 MG ECTAB PO SCH (08:41)
[2018-05-07] MEDS: FUROSEMIDE 20 MG in SYRINGE 0 ML IV SCH ×2 (08:41→17:17)
[2018-05-07] MEDS: LIDOCAINE 5% 1 PATCH TD SCH (08:42)
[2018-05-07] MEDS: POTASSIUM CHLORIDE 20 MEQ TABCR PO SCH ×2 (08:42→20:30)
--- NOTE | 2018-05-07 09:06 | Pain Management Consultation ---
Date of Consultation May 07, 2018 Assessment & Plan (1) Sacroiliitis: (2) Lumbar spinal stenosis: 1. Continue Lidocaine patch. 2. Discontinue Tramadol as it is not effective. 3. Oxycodone 5mg PO x 6 hours PRN pain was ordered. 4. Consider Gabapentin but with recent acute kidney injury and the process of diuresis, would defer for now. 5. Would defer from injections at this time due to multiple comorbidities. Could consider lumbar ISA once CHF symptoms improve. Neurogenic claudication status: unspecified Qualified Code(s): M48.061 - Spinal stenosis, lumbar region without neurogenic claudication History of Present Illness Attending Physician: Robert Bolton MD History of Present Illness This is a 73 year old white female that has been seen in consultation for low back pain that has been ongoing for 1 month without any known injury. Patient describes a deep aching and intermittent sharp pain in the low back radiating into the bilateral buttocks and along the right posterior leg to the knee. Patient states that the pain is aggravated with any movement. She did see her PCP for the back pain originally and was placed on a steroid taper and prescribed Hydrocodone which was not effective. She also saw Dr. Manrique and placed on Toradol x 5 days which was not effective. Patient has tried Tramadol in the hospital which did not diminish the pain. There is a history of L4-S1 fusion by Dr. Schmitt in 2015. She does have significant comorbidities including right sided congestive heart failure, acute kidney injury, aortic valve replacement, and hyponatremia. Patient is short of breath and has gained 20 lbs of fluid. She denies bowel/bladder incontinence, saddle anesthesia, or foot drop. She does feel like her legs are weak because she has barely gotten out of bed. Case discussed with Dr. Vicenta Burgos Pain Assessment Full Body Front + Back: 2 1. 2. 3. [facility] Combined Pain Scale: 7-Severe - Pain prevents productive activity. Impossible to tolerate. Allergies Allergy/AdvReac Type Severity Reaction Status Date / Time amoxicillin Allergy Unknown HIVES Verified 05/01/18 22:32 Penicillins Allergy Unknown AMOXICILLIN Verified 05/01/18 22:32 -HIVES Sulfa (Sulfonamide Allergy Unknown HIVES Verified 05/01/18 22:32 Antibiotics) epinephrine AdvReac Unknown tachycardia Verified 05/01/18 22:32 Home Medications Home Medications Medication Instructions Recorded Confirmed Type aspirin, buffered 325 mg PO DAILY 05/01/18 05/01/18 History clarithromycin 1,000 mg PO UD 05/01/18 05/01/18 History hydrocodone-acetaminophen 1 tab PO Q6H PRN 05/01/18 05/01/18 History ibuprofen 200 - 400 mg PO TID PRN 05/01/18 05/01/18 History polyethylene glycol 3350 [Miralax] 17 g PO HS 05/01/18 05/01/18 History triamterene-hydrochlorothiazid 1 tab PO DAILY 05/01/18 05/01/18 History Patient History Medical History Paroxysmal A-fib (Inactive) HTN (hypertension) (Chronic) DJD (degenerative joint disease), lumbosacral (Chronic) Non-occlusive coronary artery disease (Chronic) Vitamin B 12 deficiency (Chronic) Pericardial effusion Prediabetes Lower back pain Paroxysmal atrial fibrillation Left bundle branch block CHERRI (acute kidney injury) Hyponatremia Elevated alkaline phosphatase level Elevated troponin Abdominal aortic aneurysm dissection Acute lumbar back pain (Inactive) Adnexal cyst (Inactive) Surgical History Status post aortic valve replacement with bioprosthetic valve (2015) S/P tubal ligation Aortic valve replaced (2000) H/O thoracic aortic aneurysm repair (2015) S/P lumbar spinal arthrodesis History of fusion of lumbar spine (Inactive) Family History Other Diabetes mellitus Gout HTN (hypertension) Social History marital status: Current Living Situation: Spouse current occupational status: retired Other Information That Helps Us Care for You: Yes Feels Safe at Home: Yes Safety Concerns: Feels Safe At This Time Smoking Status: Former smoker Hx Alcohol Use: No Hx Substance Use: No Beliefs That Will Affect Care: None Communication Ability: Effective Review of Systems Denies any constitutional, cardiac, pulmonary, neurological, GI, , extremity, endocrine, neuro, ENT, dermatological, or musculoskeletal complaints other than stated in HPI Physical Exam 2 Vital Signs (Past 24 Hours): Last Vital Signs Temp 37.3 C 05/07/18 07:33 Pulse 97 H 05/07/18 07:33 Resp 20 05/07/18 07:33 BP 98/62 L 05/07/18 07:33 Pulse Ox 96 05/07/18 07:33 Physical Exam: GENERAL: 73 year old white female. She does stop in the middle of our discussion to take in a deep breath. Cognition is intact. Flat affect. HEAD: Normocephalic; atraumatic. EYES: EOM intact. ENT: No external ear discharge or lesions. No rhinorrhea or epistaxis. No mucosal lesions. CHEST: Regular chest respiration and excursion. ABDOMEN: Distended. EXTREMITIES: Full ROM and +5 strength of upper and lower extremities. No TTP. Distal sensation and pulses intact bilaterally. BACK: There is a well healed surgical incision of the lower lumbar region. There is tenderness along the right SI joint. There is mild bilateral quadratus lumborum muscle spasm without trigger points noted. NEURO: CN II-XII grossly intact with no focal deficits noted. SKIN: No lesions, erythema, or rashes noted. Results & Data Diagnostic Findings CT lumbar spine wo con CLINICAL HISTORY: Low back and pelvic pain. History of L4-S1 fusion. COMPARISON STUDY: Lumbar spine MRI April 30, 2014 and lumbar spine radiographs April 18, 2018. TECHNIQUE: Axial images of the lumbar spine were obtained without IV contrast. Sagittal and coronal reconstructions were viewed. Study was performed utilizing automated exposure control for dose reduction and according to ALARA principles. FINDINGS: For purposes of numbering on this exam, the L5-S1 disc space is assigned to axial image 251 of 318. The patient is status post L4-L5 discectomy with interbody spacer placement. There is a posterior decompression. There are bilateral pedicle screws at the L4, L5 and S1 levels. 6 mm anterolisthesis of L4 and L5 is unchanged from earlier exams. There is no acute lumbar spine fracture. The right L4 pedicle screw extends to the superior endplate. The hardware is intact. There is no acute fracture. There is no suspicious osseous lesion. Slight concavity of the superior plate of T12 is chronic. A punctate right renal calculus is noted. Paravertebral soft tissues are unremarkable. Central canal and neural foramen are suboptimally assessed by CT. However, there is suspected severe central canal stenosis at L3-L4 due to disc bulge, ligamentous hypertrophy and facet arthrosis. IMPRESSION: 1. Status post L4-L5 discectomy and posterior decompression with L4-S1 bilateral pedicle screw fusion. 2. No acute lumbar spine fracture. 3. Suboptimal evaluation of the central canal due to to CT technique and artifact from hardware. Suspected severe central canal stenosis at L3-L4 due to disc bulge, ligamentous hypertrophy and facet arthrosis. 4. No change in grade one anterolisthesis of L4 and L5 from earlier studies. Electronically signed by: Filippo Roque M.D. 04/19/2018 1:21 PM
[2018-05-07] MEDS: GABAPENTIN 300 MG CAP PO SCH ×2 (14:07→20:31)
[2018-05-07] MEDS: ENOXAPARIN INJ 40 MG/0.4 ML SYR SQ SCH (20:29)
[2018-05-07] MEDS: PSYLLIUM 58.6% POWDER PACKET PO SCH (20:30)
[2018-05-07] MEDS: CETIRIZINE HCL 10 MG TABLET PO SCH (20:31)
[2018-05-07] MEDS: ACETAMINOPHEN 500 MG TAB PO SCH (20:31)
--- NOTE | 2018-05-08 08:16 | Hospitalist Progress Note ---
Date of Service May 08, 2018 Assessment & Plan (1) Acute on chronic right-sided congestive heart failure: echo this admission with new-onset cor pulmonale/right-sided heart failure. 2016 echo with preserved RV function. etiology of RV failure uncertain. No evidence of PE on recent CTA chest; no DVTs on b/l LE dopplers. No MARK by history. No significant lung disease history. diuretics with lasix 20mg IV BID, and aldactone 12.5mg daily Followed by Dr. Stout. Need to be slow & cautious with diuresis to avoid CHERRI, low BP, etc. (2) Dizziness: Improved, due to low BP in setting of RV failure. cortisol and orthostatics normal. (3) Hyponatremia: Improved, follow. (4) Lumbar spinal stenosis: severe, continues with right leg radicular symptoms. symptoms relief with norco, heat, lidoderm Dr. Manrique's is following he feels surgical intervention will be risk at this time has improved with scheduled Tylenol and Neurontin will not use steroids at this time (5) Abdominal aortic aneurysm dissection: seen by vascular this admission - felt that this is chronic in nature. dimensions are 2.1 cm no Rx needed and no anticoagulation at this time. (6) CHERRI (acute kidney injury): resolved with hydration (7) Prediabetes: controlled (8) Edema: due to right-sided reduced systolic function, acute right sided systolic heart failure TSH, albumin acceptable. no DVTs present. (9) DVT prophylaxis: lovenox (10) Elevated troponin: due to myocardial demand ischemia rather than true ACS is not a non stemi. (11) Aortic valve replaced: bioprosthetic. valve function normal on recent echo. (12) H/O thoracic aortic aneurysm repair: noted. recent CTA shows this area is stabe (13) Constipation: remains on bowel regimen has some frequent bowel movement adding Metamucil cont PT, OT (14) Nasal congestion: nasocort daily. zyrtec 10mg HS. Subjective pt states that her back and leg pain are improved but she feels she may have some lethargy from the neurontin, her daughter is at the bedside and updated, the pt remains frustrated that she is not improving more rapidly Review of Systems ROS: Patient feels good respite fatigues easily with exertion No double vision blurry vision No problems with speech or swallowing No palpitations, chest pain or pressure No Wheezing or improved shortness of breath with ambulation No abdominal pain nausea vomiting does have some persistent diarrhea but feels her stool is becoming more firm No burning urine urine frequency or changes in color No focal joint pain or muscle pain No skin rashes or oral lesions No unusual bruising or bleeding Her back pain has lessened significantly and she continues to have no numbness or loss of strength No changes in memory or confusion Physical Exam 2 Vital Signs (Past 24 Hours): Last Vital Signs Temp 36.4 C L 05/08/18 07:34 Pulse 87 05/08/18 07:34 Resp 16 05/08/18 07:34 BP 100/63 05/08/18 07:34 Pulse Ox 96 05/08/18 07:34 The patient appeared well nourished and normally developed. She does not appear in discomfort Vital signs as documented. Head exam is unremarkable. normocephalic, atraumatic Neck is without jugular venous distension, thyromegaly, or lymphademopathy Lungs are clear to auscultation and percussion. There are no rales Cardiac exam reveals Rhythm is regular. First and second heart sounds normal. Abdominal exam reveals normal bowel sounds, no masses, no organomegaly Extremities are moderately edematous and both pedal pulses are present Neurologic exam is A&Ox3, no focal deficits, strength is equal bilateral Psychologically seems neither anxious or depressed Skin is warm Dry without bruises or lesions _ (1) Lumbar spinal stenosis Neurogenic claudication status: unspecified Qualified Code(s): M48.061 - Spinal stenosis, lumbar region without neurogenic claudication (2) Edema Edema type: unspecified Malnutrition edema type: Trimester: Qualified Code(s): R60.9 - Edema, unspecified (3) Constipation Constipation type: other constipation type Qualified Code(s): K59.09 - Other constipation
[2018-05-08] MEDS: ASPIRIN 81 MG ECTAB PO SCH (08:30)
[2018-05-08] MEDS: POTASSIUM CHLORIDE 20 MEQ TABCR PO SCH ×2 (08:30→20:53)
[2018-05-08] MEDS: ACETAMINOPHEN 500 MG TAB PO SCH ×2 (08:30→20:53)
[2018-05-08] MEDS: FUROSEMIDE 20 MG in SYRINGE 0 ML IV SCH (08:30)
[2018-05-08] MEDS: GABAPENTIN 300 MG CAP PO SCH ×2 (08:31→20:53)
[2018-05-08] MEDS: TRIAMCINOLONE ACET NASAL SPRAY 10.8ML BTL NAE SCH (08:31)
[2018-05-08] MEDS: LIDOCAINE 5% 1 PATCH TD SCH (08:32)
[2018-05-08 09:17] LABS: BUN Creatinine Ratio 19.8 (10-20); Calcium 8.4 mg/dl (8.5-10.1); Creatinine Clr Calc Pharmacy 44.7 ml/min; Est GFR (African American) 58.7; Est GFR (Non-African American) 50.7; Potassium 3.6 mmol/L (3.5-5.1)
[2018-05-08] MEDS: CALCITONIN SALMON NA 200 IU/AC 3.7 ML BTL SCH (10:42)
[2018-05-08] MEDS: FUROSEMIDE 40 MG in SYRINGE 0 ML IV SCH (17:23)
[2018-05-08] MEDS: ENOXAPARIN INJ 40 MG/0.4 ML SYR SQ SCH (19:27)
[2018-05-08] MEDS: PSYLLIUM 58.6% POWDER PACKET PO SCH (20:52)
[2018-05-08] MEDS: CETIRIZINE HCL 10 MG TABLET PO SCH (20:53)
[2018-05-09 06:49] LABS: BUN Creatinine Ratio 26.8 (10-20); Calcium 8.2 mg/dl (8.5-10.1); Creatinine Clr Calc Pharmacy 53.5 ml/min; Est GFR (Non-African American) 63.9; Potassium 3.8 mmol/L (3.5-5.1)
[2018-05-09] MEDS: ASPIRIN 81 MG ECTAB PO SCH (08:11)
[2018-05-09] MEDS: POTASSIUM CHLORIDE 20 MEQ TABCR PO SCH ×2 (08:11→20:36)
[2018-05-09] MEDS: ACETAMINOPHEN 500 MG TAB PO SCH ×2 (08:11→20:35)
[2018-05-09] MEDS: GABAPENTIN 300 MG CAP PO SCH ×2 (08:12→20:35)
[2018-05-09] MEDS: FUROSEMIDE 40 MG in SYRINGE 0 ML IV SCH ×2 (08:12→17:02)
[2018-05-09] MEDS: LIDOCAINE 5% 1 PATCH TD SCH (08:12)
[2018-05-09] MEDS: CALCITONIN SALMON NA 200 IU/AC 3.7 ML BTL SCH (08:12)
[2018-05-09] MEDS: TRIAMCINOLONE ACET NASAL SPRAY 10.8ML BTL NAE SCH (08:12)
--- NOTE | 2018-05-09 08:12 | Hospitalist Progress Note ---
Date of Service May 09, 2018 Assessment & Plan (1) Acute on chronic right-sided congestive heart failure: echo this admission with new-onset cor pulmonale/right-sided heart failure. 2016 echo with preserved RV function. etiology of RV failure uncertain. No evidence of PE on recent CTA chest; no DVTs on b/l LE dopplers. No MARK by history. No significant lung disease history. diuretics with lasix 40mg IV BID, and aldactone 12.5mg daily continues without renal distress and good daily weight loss Followed by Dr. Stout. Continue to be slow & cautious with diuresis to avoid CHERRI, low BP, etc. (2) Dizziness: Residual lightheadedness is attributed to the Neurontin the patient is tolerant of it given it is improved her discomfort (3) Hyponatremia: Improved, follow. Remains in the 135 range (4) Lumbar spinal stenosis: severe, improved right leg radicular symptoms with neurontin continue opiates, tylenol, heat, lidoderm Dr. Manrique's is following he feels surgical intervention will be risk at this time (5) Abdominal aortic aneurysm dissection: seen by vascular this admission - felt that this is chronic in nature. dimensions are 2.1 cm no Rx needed and no anticoagulation at this time. Will recommend follow-up with vascular surgery after discharge (6) CHERRI (acute kidney injury): resolved with hydration (7) Prediabetes: controlled (8) Edema: due to right-sided reduced systolic function, acute right sided systolic heart failure TSH, albumin acceptable. contiued daily diuresis, consider rehab placement and diuresis oversight there no DVTs present. (9) DVT prophylaxis: lovenox (10) Elevated troponin: due to myocardial demand ischemia rather than true ACS is not a non stemi. (11) Aortic valve replaced: bio prosthetic. valve function normal on recent echo. (12) H/O thoracic aortic aneurysm repair: noted. recent CTA shows this area is stable (13) Constipation: remains on bowel regimen has some frequent bowel movement adding Metamucil cont PT, OT (14) Nasal congestion: nasocort daily. zyrtec 10mg HS. Subjective Patient does feel better she is able to be tolerant of the lightheaded feeling she feels she is getting the Neurontin because its improved her pain so much. She ambulated up 10 steps with some supervision with physical therapy was able to walk a lap around the nursing unit. There is some discussion whether she should go to rehab or home I asked her to have a better in-depth discussion with her family regarding this. We still have good diuresis with weight reduction with no renal distress at this point time her diuretic dose was doubled on 05/08 and she continues to be on 40 twice daily of Lasix Review of Systems ROS: well nourished well developed. She can complains of some fatigue and lightheadedness No double vision blurry vision No problems with speech or swallowing No palpitations, chest pain or pressure No Wheezing or breathing issues No abdominal pain nausea vomiting diarrhea changes in appetite or weight No burning urine urine frequency or changes in color No focal joint pain or muscle pain diffuse muscle discomfort and lower extremity swelling No skin rashes or oral lesions No unusual bruising or bleeding No focused back pain or numbness or focal loss of strength No changes in memory or confusion Physical Exam 2 Vital Signs (Past 24 Hours): Last Vital Signs Temp 36.7 C 05/09/18 07:58 Pulse 85 05/09/18 07:58 Resp 18 05/09/18 07:58 BP 115/66 05/09/18 07:58 Pulse Ox 94 05/09/18 07:58 ROS: well nourished well developed. No double vision blurry vision No problems with speech or swallowing No palpitations, chest pain or pressure No Wheezing or breathing issues No abdominal pain nausea vomiting diarrhea changes in appetite or weight No burning urine urine frequency or changes in color No focal joint pain or muscle pain No skin rashes or oral lesions No unusual bruising or bleeding No focused back pain or numbness or loss of strength 1-2+ edema to her lower legs and feet still remains No changes in memory or confusion _ (1) Lumbar spinal stenosis Neurogenic claudication status: unspecified Qualified Code(s): M48.061 - Spinal stenosis, lumbar region without neurogenic claudication (2) Edema Edema type: unspecified Malnutrition edema type: Trimester: Qualified Code(s): R60.9 - Edema, unspecified (3) Constipation Constipation type: other constipation type Qualified Code(s): K59.09 - Other constipation
[2018-05-09] MEDS: ENOXAPARIN INJ 40 MG/0.4 ML SYR SQ SCH (20:03)
[2018-05-09] MEDS: CETIRIZINE HCL 10 MG TABLET PO SCH (20:35)
[2018-05-09] MEDS: PSYLLIUM 58.6% POWDER PACKET PO SCH (20:36)
[2018-05-10 05:51] LABS: Hematocrit (blood only) 33.3 % (37-47); Hemoglobin 10.8 g/dL (12.0-16.0); Mean Corpuscular Hgb Conc 32.4 g/dL (32-36); Mean Corpuscular Volume 92.8 fL (80-100); Mean Platelet Volume 8.7 fL (7.4-10.4); Platelet Count 367 K/uL (130-400); RDW Coefficient of Variation 15.6 % (11.5-14.5); RDW Standard Deviation 50.5 fL (36.4-46.3); Red Blood Count 3.59 M/uL (4.2-5.4); White Blood Count 4.64 K/uL (4.8-10.8)
[2018-05-10 06:23] LABS: BUN Creatinine Ratio 27.4 (10-20); Calcium 8.4 mg/dl (8.5-10.1); Est GFR (African American) 81.7; Est GFR (Non-African American) 70.4; Potassium 3.9 mmol/L (3.5-5.1)
[2018-05-10] MEDS: GABAPENTIN 300 MG CAP PO SCH (08:27)
[2018-05-10] MEDS: ASPIRIN 81 MG ECTAB PO SCH (08:28)
[2018-05-10] MEDS: FUROSEMIDE 40 MG in SYRINGE 0 ML IV SCH ×2 (08:28→18:35)
[2018-05-10] MEDS: POTASSIUM CHLORIDE 20 MEQ TABCR PO SCH ×2 (08:28→21:00)
[2018-05-10] MEDS: ACETAMINOPHEN 500 MG TAB PO SCH ×2 (08:28→21:01)
[2018-05-10] MEDS: LIDOCAINE 5% 1 PATCH TD SCH (08:29)
[2018-05-10] MEDS: TRIAMCINOLONE ACET NASAL SPRAY 10.8ML BTL NAE SCH (08:29)
[2018-05-10] MEDS: CALCITONIN SALMON NA 200 IU/AC 3.7 ML BTL SCH (09:28)
[2018-05-10] MEDS ORDERED: POLYETHYLENE (MIRALAX) 17 GM PACK PO STA (13:59)
--- NOTE | 2018-05-10 14:00 | Hospitalist Progress Note ---
Date of Service May 10, 2018 Assessment & Plan (1) Acute on chronic right-sided congestive heart failure: echo this admission with new-onset cor pulmonale/right-sided heart failure. 2016 echo with preserved RV function. etiology of RV failure uncertain. No evidence of PE on recent CTA chest; no DVTs on b/l LE dopplers. No MARK by history. No significant lung disease history. increased diuretics with lasix 40mg IV BID(05/09), and aldactone 12.5mg daily continues without renal distress and continues with good daily weight loss and no renal distress Followed by Dr. Stout. (2) Dizziness: Residual lightheadedness is attributed to the Neurontin will reduce the dose (3) Hyponatremia: Improved, follow. Remains in appropriate (4) Lumbar spinal stenosis: severe, improved right leg radicular symptoms with neurontin continue opiates, tylenol, heat, lidoderm Dr. Manrique's is following he feels surgical intervention will be risk at this time, symptoms are improving (5) Abdominal aortic aneurysm dissection: seen by vascular this admission - felt that this is chronic in nature. dimensions are 2.1 cm no Rx needed and no anticoagulation at this time. Will recommend follow-up with vascular surgery after discharge (6) CHERRI (acute kidney injury): resolved with hydration (7) Prediabetes: remains controlled (8) Edema: due to right-sided reduced systolic function, acute right sided systolic heart failure TSH, albumin acceptable. continued daily diuresis, rehab approval is in question (9) DVT prophylaxis: lovenox (10) Elevated troponin: due to myocardial demand ischemia rather than true ACS is not a non stemi. (11) Aortic valve replaced: bio prosthetic. valve function normal on recent echo. (12) H/O thoracic aortic aneurysm repair: noted. recent CTA shows this area is stable (13) Constipation: remains on bowel regimen has some frequent bowel movement adding Metamucil cont PT, OT (14) Nasal congestion: nasocort daily. zyrtec 10mg HS. Subjective Patient biggest complaint revolves around not able to being able to the bathroom she is also complaining being drowsy from the Neurontin Review of Systems ROS: well nourished well developed. Complains of fatigue No double vision blurry vision No problems with speech or swallowing No palpitations, chest pain or pressure No Wheezing or breathing issues No abdominal pain nausea vomiting complains of constipation No burning urine urine frequency or changes in color No focal joint pain or muscle pain No skin rashes or oral lesions but does complain of tenderness to her skin due to swelling of her lower legs No unusual bruising or bleeding No focused back pain or numbness or loss of strength No changes in memory or confusion Physical Exam 2 Vital Signs (Past 24 Hours): Last Vital Signs Temp 36.4 C L 05/10/18 11:00 Pulse 94 H 05/10/18 11:00 Resp 16 05/10/18 11:00 BP 99/65 L 05/10/18 11:00 Pulse Ox 96 05/10/18 11:00 The patient appeared well nourished and normally developed. Vital signs as documented. Head exam is unremarkable. normocephalic, atraumatic Neck is with jugular venous distension, thyromegaly, or lymphademopathy Lungs are clear to auscultation and percussion. Cardiac exam reveals Rhythm is regular. First and second heart sounds normal. Abdominal exam reveals normal bowel sounds, no masses, no organomegaly Extremities are moderately edematous and both pedal pulses are present Neurologic exam is A&Ox3, no focal deficits, strength is equal bilateral Psychologically seems neither anxious or depressed Skin is warm Dry without bruises or lesions _ (1) Lumbar spinal stenosis Neurogenic claudication status: unspecified Qualified Code(s): M48.061 - Spinal stenosis, lumbar region without neurogenic claudication (2) Edema Edema type: unspecified Malnutrition edema type: Trimester: Qualified Code(s): R60.9 - Edema, unspecified (3) Constipation Constipation type: other constipation type Qualified Code(s): K59.09 - Other constipation
[2018-05-10] MEDS: ENOXAPARIN INJ 40 MG/0.4 ML SYR SQ SCH (20:55)
[2018-05-10] MEDS: GABAPENTIN 100 MG CAP PO SCH (21:00)
[2018-05-10] MEDS: CETIRIZINE HCL 10 MG TABLET PO SCH (21:01)
[2018-05-10] MEDS: PSYLLIUM 58.6% POWDER PACKET PO SCH (21:01)
[2018-05-11 06:23] LABS: BUN Creatinine Ratio 27.9 (10-20); Calcium 8.3 mg/dl (8.5-10.1); Creatinine Clr Calc Pharmacy 52.6 ml/min; Est GFR (African American) 73.1; Potassium 3.9 mmol/L (3.5-5.1)
--- NOTE | 2018-05-11 07:37 | Hospitalist Progress Note ---
Date of Service May 11, 2018 Assessment & Plan (1) Acute on chronic right-sided congestive heart failure: echo this admission with new-onset cor pulmonale/right-sided heart failure. 2016 echo with preserved RV function. etiology of RV failure uncertain. No evidence of PE on recent CTA chest; no DVTs on b/l LE dopplers. No MARK by history. No significant lung disease history. increased diuretics with lasix 40mg IV BID(05/09), and aldactone 12.5mg daily remains with negative fluid balance and weight loss Followed by Dr. Stout. (2) Dizziness: Residual lightheadedness is attributed to the Neurontin assessing to see if reducing the dose improves her symptoms (3) Hyponatremia: Resolved (4) Lumbar spinal stenosis: severe, improved right leg radicular symptoms with neurontin continue opiates, tylenol, heat, lidoderm Dr. Manrique's is following he feels surgical intervention will be risk at this time, symptoms are improving (5) Abdominal aortic aneurysm dissection: seen by vascular this admission - felt that this is chronic in nature. dimensions are 2.1 cm no Rx needed and no anticoagulation at this time. Will recommend follow-up with vascular surgery after discharge (6) CHERRI (acute kidney injury): resolved with hydration (7) Prediabetes: remains controlled (8) Edema: due to right-sided reduced systolic function, acute right sided systolic heart failure TSH, albumin acceptable. continued daily diuresis, rehab approval is in question (9) DVT prophylaxis: lovenox (10) Elevated troponin: due to myocardial demand ischemia rather than true ACS is not a non stemi. (11) Aortic valve replaced: bio prosthetic. valve function normal on recent echo. (12) H/O thoracic aortic aneurysm repair: noted. recent CTA shows this area is stable (13) Constipation: remains on bowel regimen has some frequent bowel movement adding Metamucil cont PT, OT (14) Nasal congestion: nasocort daily. zyrtec 10mg HS. Subjective Patient has no complaints or problems since reducing her dose of Neurontin her pain is yet to be worsened. Awaiting to see if it improves her daytime sleepiness. The patient is disappointed that we are appealing her denial of acute rehab. She is considering subacute rehab although not strongly. She has no worsened shortness of breath but still has significant lower extremity edema. Review of Systems ROS: well nourished well developed. No double vision blurry vision No problems with speech or swallowing No palpitations, chest pain or pressure does complain of leg swelling No Wheezing is dyspneic with exertion No abdominal pain nausea vomiting diarrhea changes in appetite or weight No burning urine urine frequency or changes in color Remains with dull but more tolerable radicular the right buttock and leg pain No skin rashes or oral lesions No unusual bruising or bleeding No numbness or loss of strength No changes in memory or confusion Physical Exam 2 Vital Signs (Past 24 Hours): Last Vital Signs Temp 36.9 C 05/11/18 03:58 Pulse 81 05/11/18 03:58 Resp 16 05/11/18 03:58 BP 108/69 05/11/18 03:58 Pulse Ox 94 05/11/18 03:58 The patient appeared well nourished and normally developed. Vital signs as documented. Head exam is unremarkable. normocephalic, atraumatic Neck is with mild jugular venous distension, thyromegaly, or lymphademopathy Lungs are clear to auscultation and percussion. But decreased at the bases Cardiac exam reveals Rhythm is regular. First and second heart sounds normal. Abdominal exam reveals normal bowel sounds, no masses, no organomegaly Extremities are moderately edematous and both pedal pulses are present Neurologic exam is A&Ox3, no focal deficits, strength is equal bilateral Psychologically seems neither anxious or depressed Skin is warm Dry without bruises or lesions _ (1) Lumbar spinal stenosis Neurogenic claudication status: unspecified Qualified Code(s): M48.061 - Spinal stenosis, lumbar region without neurogenic claudication (2) Edema Edema type: unspecified Malnutrition edema type: Trimester: Qualified Code(s): R60.9 - Edema, unspecified (3) Constipation Constipation type: other constipation type Qualified Code(s): K59.09 - Other constipation
[2018-05-11] MEDS: TRIAMCINOLONE ACET NASAL SPRAY 10.8ML BTL NAE SCH (09:15)
[2018-05-11] MEDS: ASPIRIN 81 MG ECTAB PO SCH (09:15)
[2018-05-11] MEDS: GABAPENTIN 100 MG CAP PO SCH ×2 (09:15→21:30)
[2018-05-11] MEDS: POTASSIUM CHLORIDE 20 MEQ TABCR PO SCH ×2 (09:15→20:35)
[2018-05-11] MEDS: CALCITONIN SALMON NA 200 IU/AC 3.7 ML BTL SCH (09:15)
[2018-05-11] MEDS: ACETAMINOPHEN 500 MG TAB PO SCH ×2 (09:16→20:36)
[2018-05-11] MEDS: LIDOCAINE 5% 1 PATCH TD SCH (09:16)
[2018-05-11] MEDS: FUROSEMIDE 40 MG in SYRINGE 0 ML IV SCH ×2 (10:51→19:02)
[2018-05-11] MEDS ORDERED: BISACODYL 10 MG SUPP PR PRN (14:00)
[2018-05-11] MEDS ORDERED: POLYETHYLENE (MIRALAX) 17 GM PACK PO PRN (14:01)
[2018-05-11] MEDS: ENOXAPARIN INJ 40 MG/0.4 ML SYR SQ SCH (20:34)
[2018-05-11] MEDS: CETIRIZINE HCL 10 MG TABLET PO SCH (20:36)
[2018-05-11] MEDS: PSYLLIUM 58.6% POWDER PACKET PO SCH (20:37)
--- NOTE | 2018-05-11 20:39 | Cardiology Progress Note ---
Date of Service May 11, 2018 Assessment & Plan (1) Acute on chronic right-sided congestive heart failure: Patient seems to be improving clinically. Recommend continued, cautious diuresis with Lasix. Her renal function remains stable at this time. Patient is anticipating discharge tomorrow. Recommend aggressive and frequent follow up care as she is not yet at her baseline. We will arrange for a hospital follow up early next week with the heart failure program. Patient will need close monitoring of her renal function and electrolytes. BMP/Mag will be ordered per protocol. We discussed daily weights at home. She was instructed to bring her weight log to her follow up appointment. Low sodium diet was recommended, less than 2,000 mg. She should avoid Prednisone and Toradol as that may have contributed to her volume overload. Subjective HEART FAILURE PROGRAM: Mrs. Li is a 73 year old female with a medical history significant for aortic stenosis status post pericardial tissue AVR 2000 and redo bioprosthetic valve 2016, history of postop afib, nonobstructive CAD (30% mid LAD 2015), ascending aortic aneurysm, hypertension, and spinal stenosis. She is followed by Dr. Juarez. She has a history of aortic stenosis and initially underwent pericardial tissue AVR in 2000. In 2016 she underwent redo bio-prosthetic aortic valve and aortic root replacement. Cardiac catheterization at that time demonstrated 30% mid LAD stenosis. She is currently admitted for hypotension, syncope, and low back pain. Her blood pressure has since stabilized with IV fluids. During the course of her stay, she started complaining of increased shortness of breath, orthopnea, and edema. She was evaluated by Dr. Stout, who was covering the service. After reviewing her recent echo, it was determined she was in significant right heart failure. She was started on IV Lasix and Aldactone for slow, cautious diuresis in the setting of hyponatremia, hypotension, and the fact that she is quite preload dependent. She states she is feeling somewhat improved today. Her shortness of breath is resolved. She was able to sleep better last night. She always sleeps somewhat reclined due to her back pain, otherwise denies PND. She continues to have significant lower extremity edema. She estimates her weight be about 10 lbs above her normal baseline. She is currently on Lasix 40 mg IV BID. She has been diuresing well over the last 24 hours at -800 but is positive 8 L during the cumulative stay. According to her chart, the aldactone was a one time dose on . Physical Exam 2 Vital Signs (Past 24 Hours): Last Vital Signs Temp 36.6 C 05/11/18 15:37 Pulse 86 05/11/18 16:00 Resp 18 05/11/18 15:37 BP 116/66 05/11/18 15:37 Pulse Ox 96 05/11/18 15:37 Physical Exam: Constitutional: Alert, cooperative and in no distress. HEENT: Unremarkable Neck: Mild JVD, aprox 1/3 from the mandible sitting upright, carotid pulses are normal and equal bilaterally without bruits. Pulmonary: Clear to auscultation bilaterally. Cardiac: Regular rate and rhythm. Grade II holosystolic murmur. Abdomen: Soft, nontender with normal bowel sounds. Extremities: +2 distal pulses. 1-2+ pitting pretibial edema. Thigh edema seems improved. Neurologic: No focal findings. Gait is steady. Skin: No rash, ecchymoses or petechiae.
[2018-05-12] MEDS: GABAPENTIN 100 MG CAP PO SCH (07:55)
[2018-05-12] MEDS: TRIAMCINOLONE ACET NASAL SPRAY 10.8ML BTL NAE SCH (07:55)
[2018-05-12] MEDS: ACETAMINOPHEN 500 MG TAB PO SCH (07:55)
[2018-05-12] MEDS: POTASSIUM CHLORIDE 20 MEQ TABCR PO SCH (07:55)
[2018-05-12] MEDS: LIDOCAINE 5% 1 PATCH TD SCH (07:56)
[2018-05-12] MEDS: CALCITONIN SALMON NA 200 IU/AC 3.7 ML BTL SCH (07:56)
[2018-05-12 08:00] LABS: BUN Creatinine Ratio 22.8 (10-20); Calcium 8.5 mg/dl (8.5-10.1); Creatinine Clr Calc Pharmacy 45.8 ml/min; Est GFR (African American) 62.9; Est GFR (Non-African American) 54.3; Potassium 3.8 mmol/L (3.5-5.1)
[2018-05-12] MEDS: FUROSEMIDE 40 MG in SYRINGE 0 ML IV SCH (08:37)
[2018-05-12] MEDS: ASPIRIN 81 MG ECTAB PO SCH (08:37)
--- NOTE | 2018-05-12 13:01 | Discharge Summary ---
Date of Service May 12, 2018 Admission HPI Per Admitting Provider Dalia Li is a 73 y.o female with history of bicuspid aortic valve s/p replacement and repair, history of lumbar spinal stenosis s/p fusion, thoracic aortic aneurysm repair, and constipation presenting to the ED after syncopal episode. History per patient. States that during the evening of she was walking in her house and using her walker when she started to feel lightheaded. She sat down on the couch and shortly after she became profusely diaphoretic reporting that she broke out into a sweat, became nauseated and had difficulty catching her breath. Mrs. Li called her to help her, she got up, walked to the bathroom and passed out while sitting on the commode. She fell off the commode and hit the right side of her head on the ground followed by loss of consciousness and small amount of bowel/bladder incontinence. She was then brought to the ED by EMS. Has a prior history of 2 syncopal episodes years ago and recalls that one episode occurred in the bathroom. Dalia reports that over the past few weeks her mobility has decreased as she has experienced worsening pain in relation to spinal stenosis. Pain is present in lower back, bilateral buttocks and thighs. Associated radiation of numbness/ tingling in legs and feet. She has been seen by ortho and it was thought that she had an inflammatory process around the hardware in her back. Was given Toradol x 5 days and Hydrocodone for pain relief. She took one tablet of hydrocodone during the morning of 05/01 and one tablet during the evening of . Lightheaded/dizzy sensation started on 05/01 and thought that it was due to hydrocodone so she stopped taking the medication. Is eating and drinking at baseline. Denies chest pain/vomiting/diarrhea. PMH/Surgical History 1. Lumbar spinal stenosis 2. Bicuspid aortic valve replacement 3. Thoracic aortic aneurysm repair 4. Constipation Medications: Clarithromycin - prophylaxis for dental procedures ASA - Thoracic aortic aneurysm Triamterene-HCTZ: HTN Miralax: Constipation Social: Lives at home with . Home is bi-level and has stairs. Prior remote history of tobacco use. Social alcohol intake: wine on occasion. Denies drug use. Principal Diagnosis Acute on chronic right-sided congestive heart failure Discharge Exam The patient appeared well nourished and normally developed. Vital signs as documented. Head exam is unremarkable. normocephalic, atraumatic Neck is without jugular venous distension, thyromegaly, or lymphademopathy Lungs are clear to auscultation and percussion. Cardiac exam reveals Rhythm is regular. First and second heart sounds normal. Abdominal exam reveals normal bowel sounds, no masses, no organomegaly Extremities are mildly edematous and both pedal pulses are present Neurologic exam is A&Ox3, no focal deficits, strength is equal bilateral Psychologically seems neither anxious or depressed Skin is warm Dry without bruises or lesions Discharge Data Allergies Allergy/AdvReac Type Severity Reaction Status Date / Time amoxicillin Allergy Unknown HIVES Verified 05/01/18 22:32 Penicillins Allergy Unknown AMOXICILLIN Verified 05/01/18 22:32 -HIVES Sulfa (Sulfonamide Allergy Unknown HIVES Verified 05/01/18 22:32 Antibiotics) epinephrine AdvReac Unknown tachycardia Verified 05/01/18 22:32 Consultations 05/01/18 23:11 ED Decision to Admit Stat 05/02/18 01:07 Consult Cardiology Routine Consult Case Management - Discharge Planning Routine Consult Quality Control Coordinator Routine 05/02/18 03:29 Consult Vascular Surgery Routine 05/03/18 13:35 Consult Orthopedic Surgery Routine 05/06/18 11:19 Consult Pain Management Routine Ordered Studies 05/01/18 21:40 CT head/brain wo con Stat 05/02/18 CT angio abdomen pelvis w con Urgent 05/02/18 01:07 CT angio chest dissec wo/w con Urgent 05/05/18 15:04 US venous doppler LE Routine Hospital Course (1) Acute on chronic right-sided congestive heart failure: echo this admission with new-onset cor pulmonale/right-sided heart failure. 2016 echo with preserved RV function. etiology of RV failure uncertain. No evidence of PE on recent CTA chest; no DVTs on b/l LE dopplers. No MARK by history. No significant lung disease history. increased diuretics with lasix 40mg IV BID(05/09), will be on bid diuretics with outpt follow up with home health (2) Dizziness: Residual lightheadedness is attributed to the Neurontin reducing the dose has resolved her symptoms (3) Hyponatremia: Resolved (4) Lumbar spinal stenosis: severe, improved right leg radicular symptoms with neurontin continue opiates, tylenol, heat, lidoderm Dr. Manrique's is following he feels surgical intervention will be risk at this time, symptoms are improving will recommend follow up (5) Abdominal aortic aneurysm dissection: seen by vascular this admission - felt that this is chronic in nature. dimensions are 2.1 cm no Rx needed and no anticoagulation at this time. Will recommend follow-up with vascular surgery after discharge (6) CHERRI (acute kidney injury): resolved with hydration (7) Prediabetes: remains controlled (8) Edema: due to right-sided reduced systolic function, acute right sided systolic heart failure TSH, albumin acceptable. continued daily diuresis, (9) DVT prophylaxis: lovenox (10) Elevated troponin: due to myocardial demand ischemia rather than true ACS is not a non stemi. (11) Aortic valve replaced: bio prosthetic. valve function normal on recent echo. (12) H/O thoracic aortic aneurysm repair: noted. recent CTA shows this area is stable (13) Constipation: remains on bowel regimen has some frequent bowel movement adding Metamucil (14) Nasal congestion: nasocort daily. zyrtec 10mg HS. Total Time Total Time Spent Total Time Spent (In Minutes): greater than 30 minutes were required to prepare discharge Discharge Plan Discharge Items Patient Disposition: Home - Home Health Services Reason For Visit: NSTEMI Discharge Diagnosis: acute diastolic heart failure, aortic dissection Discharge Goals: Decrease discomfort and Improve disease control Activity: As commented below Activity Comment: slowly increase physical therapy Non-emergency contact: Primary Care Provider, Surgeon and Bun Machine Operator Call non-emergency contact if: you have any medication questions Follow-up/Referrals: Ayesha Duenas MD [Primary Care Provider] - 05/16/18 10:00 am (Please, follow up at [facility] with Dr. Duenas on MondayMay 16 at 10:00 am. *If you need to change this appointment, call the office at [phone]. Two of your medications required prior authorization thru your insurance company : Gabapentin and Calcitonin. I started this process and expect a determination from the insurance company tomorrow.) Diet: Regular Other Ambulatory Orders: Basic Metabolic Panel (Routine) Timeframe: 1 Week Location: Determined by Patient Ordered By: Robert Dumont Provider Instructions: Please follow up with [facility] Call your Primary Care doctor if any of the following symptoms or problems start or get worse: * Shortness of breath or difficulty breathing * Wake up at night short of breath * Chest pain * Cough * Swelling of your hands, feet, or legs * More fatigued or tired with your normal activity * Palpitations - sudden fast heart beats WEIGHT * Weigh yourself every morning after using the bathroom. * Use the same scale. * Wear the same amount of clothing. * Write your weight down on a chart. * Call your Primary Care doctor if you gain more than 2-3 pounds in 1-2 days. MEDICATIONS * Use this discharge instruction sheet for medication instructions. * Take your medications at the time your doctor ordered. * Do not skip a dose of your medicines. * If you miss a dose of medicine, take it as soon as possible, but DO NOT DOUBLE A DOSE. * Read your medicine information when you get home. * Know all of the side effects of your medicine. If in doubt, ask your pharmacist * Call your Primary Care doctor's office if you have any side effects. * Be sure all of your doctors know what medicine and herbs you take (including cold, flu, and herbal medicine). Take the following with you to your follow-up doctor appointments: * Weight Chart * Medication List * List of questions Do not drink excessive alcohol, beer or wine. PLEASE FOLLOW UP WITH HEART FAILURE PROGRAM/[facility] EARLY NEXT WEEK. suggested order of follow up cardiology and primary care first, then Dr Moreira and Burton in the 2-4 month range Prescriptions: New potassium chloride [Klor-Con M20] 20 mEq Tablet,Er Particles/Crystals 20 meq PO BID Qty: 60 RF: 5 calcitonin (salmon) 200 unit/actuation [place],Non-Aerosol 1 spry NA DAILY Qty: 1 RF: 5 gabapentin 100 mg Capsule 100 mg PO BID Qty: 60 RF: 5 furosemide [Lasix] 40 mg tablet 40 mg PO BID Qty: 60 RF: 5 Continue hydrocodone-acetaminophen 5-325 mg tablet 1 tab PO Q6H PRN (Reason: Pain) RF: 0 aspirin, buffered 325 mg Tablet 325 mg PO DAILY RF: 0 polyethylene glycol 3350 [Miralax] 17 gram/dose Powder 17 g PO HS RF: 0 Discontinued triamterene-hydrochlorothiazid 37.5-25 mg capsule 1 tab PO DAILY RF: 0 ibuprofen 200 mg Tablet 200 - 400 mg PO TID PRN (Reason: Pain) RF: 0 clarithromycin 500 mg tablet 1,000 mg PO UD RF: 0 Stand-Alone Forms: [facility] Discharge Orders: Discharge Order (Routine); Ordered 05/12/18 Ordered By: Robert Bolton Admission Data Admit Date/Time: 05/02/18 00:21 Attending Provider: Robert Bolton Admit Provider: Gloria Chen Primary Care Provider: Ayesha Duenas Other Providers: Gloria Chen ; Júnior Hays ; Simba Juarez ; Morgan Juarez ; Tristin Martin ; Brian Nelson Jr ; Jude Hewitt ; Saloni Yen ; Shantal Camacho ; Adelfo Jain ; Adelfo Baker ; Bret Kurtz ; Abhishek Ag ; Manolo Maria ; Vicenta Yu ; Radha Howell ; Claudy Douglas ; Tomás Moreira ; Manolo Manrique ; Vicenta Burgos ; Yon Tirado Service: Telemetry Other Interventions: Discharge Summary Assessment (RN) Last Done: 05/12/18 11:14 DC Date/Time DO NOT enter until pt leaves facility: 05/12/18 13:03
--- NOTE | 2018-05-16 09:18 | Coding Query ---
CODING QUERY To promote full compliance with coding requirements relating to patient care, provider participation is requested in all cases of reinforcement maker uncertainty. Please assist us with the question(s) below: Coding Question(s): The Hospitalist Progress Note on 05/03/18 documents, " Elevated troponin: Type 2 GA in the setting of hypotension associated with hypovolemia" and Discharge Summary documents, " Elevated troponin: due to myocardial demand ischemia rather than true ACS is not a non stemi". Please clarify below, in your clinical opinion. ( ) Type 2 GA or GA due to Demand Ischemia ( xx) Demand Ischemia only - No Type 2 GA Physician's Response(s): Thank you Fannie Gupta Principal Diagnosis: "that condition established after study, to be chiefly responsible for occasioning the admission of the patient to the hospital for care." Co-Existing Principal Diagnosis: "when two or more diagnoses equally meet the criteria for principal diagnosis as determined by the circumstances of admission , diagnostic work up, and/or therapy provided, and the Alphabetic Index, Tabular List, or another coding guideline does not provide sequencing direction , any one of the diagnoses may be sequenced first." "When the physician has documented what appears to be a current diagnosis in the body of the record, but has not included the diagnosis in the final diagnostic statement, the physician should be asked whether the diagnosis should be added." (Source Coding [facility] 2 QTR90. p3-4) DONN
--- NOTE | 2018-05-16 09:24 | Coding Query ---
PRESENT ON ADMISSION QUERY To promote full compliance with coding requirements relating to pateint care, physician participation is requested in all cases of cake wringer uncertainty. Please assist us with the question(s) below: Please place an X within the parenthesis (x). The following diagnosis(es) listed in this patient's medical record require physician assistance to determine if they were present on admission (POA) or not. Please advise for each diagnosis whether it was present on admission, not present on admission, or if it was clinically undetermined. 1. Acute on Chronic Right-sided Congestive Heart Failure - new onset cor pulmonale/right-sided heart failure (documented beginning on Progress Note ) ( ) Present On Admission ( xx) Not Present On Admission ( ) Clinically Undetermined 2. Acute Right Sided Systolic Heart Failure (documented beginning on Progress Note 05/07/18) ( ) Present On Admission ( xx) Not Present On Admission ( ) Clinically Undetermined Thank you Fannie Gupta *Definition of the present on admission (POA)-Present on admission is defined as present at the time the order for inpatient admission occurs. Conditions that develop during an outpatient encounter prior to a written order for inpatient admission (including emergency department, observation, or outpatient surgery) are considered present on admission. MTDD
== END 2018-05-12 13:03 | disposition home health service (06) | DRG 640 ==
LOC: ED 21:17 → 1E 05-02 00:21 → SUATTDRO 05-02 00:21 → 1E 05-02 00:47 → 2N 05-03 13:38